=== PATIENT | male | born 1950 | race Caucasian/White ===

== ENCOUNTER 2018-06-22 10:11 | Emergency (ER) | payer OTHER ==
[2018-06-22 10:24] VITALS: BP 148/73; PULSE 102; TEMP 98; BMI 31.6
--- NOTE | 2018-06-22 10:47 | PDOC ---
History of Present Illness - General Chief Complaint: Cold Symptoms Stated Complaint: COLD SYMPTOMS Time Seen by Provider: 06/22/18 10:47 History Source: Patient Exam Limitations: No Limitations - History of Present Illness Initial Comments: 06/22/18 10:59 Came to emergency department with back for evaluation of this worsening over the past few days. Was seen by PMD on and prescribed cough syrup and azithromycin which she has taken today's dosage now. States cough persists without fever. Phlegm is whitish in color. His chest pain or palpitations Timing/Duration: reports: constant, getting worse, intermittent Severity: reports: mild, moderate Associated Symptoms: reports: cough, dizziness, fever/chills, headache, nasal congestion, nasal drainage Past History - Travel Traveled outside of the country in the last 30 days: No Close contact w/someone who was outside of country & ill: No - Past Medical History Allergies/Adverse Reactions: Allergies Allergy/AdvReac Type Severity Reaction Status Date / Time No Known Allergies Allergy Verified 06/22/18 10:18 Home Medications: Ambulatory Orders Aspirin [Baby Aspirin] 81 mg PO 10/15/13 Insulin Glargine,Hum.rec.anlog [Lantus] 100 unit SQ cartridge 10/15/13 Metformin HCl 1,000 mg PO BID #60 tablet 10/15/13 Simvastatin [Zocor] 20 mg PO tablet 10/15/13 Albuterol Sulfate Inhaler - [Ventolin HFA Inhaler -] 1 - 2 inh PO Q4H #1 inhaler 06/22/18 COPD: No Diabetes: Yes (IDDM) HTN: Yes Hypercholesterolemia: Yes - Immunization History Immunization Up to Date: Yes - Suicide/Smoking/Psychosocial Hx Smoking History: Current every day smoker Information on smoking cessation initiated: No Hx Alcohol Use: No Drug/Substance Use Hx: No Review of Systems - Review of Systems Able to Perform ROS?: Yes Is the patient limited Romansh proficient: Yes Constitutional: Yes: Symptoms Reported, See HPI, Malaise. No: Fever HEENTM: Yes: Symptoms Reported, See HPI, Nose Congestion, Dental Problems Respiratory: Yes: Symptoms reported, See HPI, Cough Cardiac (ROS): No: Symptoms Reported Musculoskeletal: Yes: Symptoms Reported Neurological: Yes: Symptoms reported, See HPI, Headache All Other Systems: Reviewed and Negative *Physical Exam - Vital Signs Last Vital Signs Temp Pulse Resp BP Pulse Ox 98.0 F 102 H 18 148/73 91 L 06/22/18 10:19 06/22/18 10:19 06/22/18 10:19 06/22/18 10:19 06/22/18 10:19 - Physical Exam General Appearance: Yes: Nourished, Appropriately Dressed, Apparent Distress, Mild Distress HEENT: positive: EOMI, Pharyngeal Erythema, Nasal Congestion, Rhinorrhea. negative: TMs Normal (congested but landmarks easily visualized) Neck: positive: Supple. negative: Tender, Lymphadenopathy (R), Lymphadenopathy (L) Respiratory/Chest: positive: Normal Breath Sounds. negative: Lungs Clear ( coarse but clear, no wheezing or retractions noted however mildly diminished) Extremity: positive: Normal Capillary Refill, Normal Inspection Integumentary: positive: Normal Color, Dry, Warm, Pale Neurologic: positive: propeller engineer II-XII NML intact, Fully Oriented, Alert, Normal Mood/ Affect, Normal Response, Motor Strength 5/5 Moderate Sedation - Procedure Monitoring Vital Signs: Procedure Monitoring Vital Signs Temperature 98.0 F 06/22/18 10:19 Pulse Rate 102 H 06/22/18 10:19 Respiratory Rate 18 06/22/18 10:19 Blood Pressure 148/73 06/22/18 10:19 O2 Sat by Pulse Oximetry (%) 91 L 06/22/18 10:19 *DC/Admit/Observation/Transfer Diagnosis at time of Disposition: Bronchitis - Discharge Dispostion Disposition: HOME Condition at time of disposition: Stable Decision to Admit order: No - Prescriptions Prescriptions: Albuterol Sulfate Inhaler - [Ventolin HFA Inhaler -] 1 - 2 inh PO Q4H #1 inhaler - Referrals Referrals: Vickie Bardales MD [Primary Care Provider] - - Patient Instructions Printed Discharge Instructions: DI for Acute Bronchitis Additional Instructions: Rest, drink lots of fluids: Teas, water, soups, Pedialyte Saltwater gargles Steamy showers/seem to face break up mucus Avoid contact with others until fevers and cough resolved Lots of handwashing and good hygiene Continue [id number]-[id number] medications for symptomatic relief Tylenol or Motrin for fever and pain Continue albuterol nebulizers every 4-6 hours for the next 2 days then as needed for continued cough Followup with private physician in one to 2 days Return to emergency department / pediatric hospital for worsened symptoms, fevers, dehydration - Post Discharge Activity
[2018-06-22] MEDS ORDERED: ALBUTEROL SO4 2.5/IPRATROPIUM 0.5 INH SOL 3 ML VIAL.NEB. NEB ONE ×2 (10:53→11:01)
== END 2018-06-22 11:52 | disposition home or self-care (01) ==
LOC: JERFT 10:11
PROC: 3E0F7GC Introduction of Other Therapeutic Substance into Respiratory Tract, Via Natural or Artificial Opening (ICD-10-PCS; principal; 2018-06-22)
DX: J40 Bronchitis, not specified as acute or chronic (principal); I10 Essential (primary) hypertension; E11.9 Type 2 diabetes mellitus without complications; Z79.4 Long term (current) use of insulin; E78.00 Pure hypercholesterolemia, unspecified
CPT/HCPCS: 71046-TC-FY; 94640; 99281-25

== ENCOUNTER 2018-11-28 06:19 | Inpatient (IN) | payer OTHER ==
--- NOTE | 2018-11-28 07:10 | PDOC ---
History of Present Illness - General Chief Complaint: Rectal Bleed Stated Complaint: GI BLEED Time Seen by Provider: 11/28/18 07:10 - History of Present Illness Initial Comments: 11/28/18 07:46 Mr. Bean is a 68 yo male w/ pmh of IDDM and HTN who presents for evaluation of 3 episodes of bright red blood in stool earlier today. Patient also reports he has felt dizzy upon standing today as well. Family reports he is very pale looking. The patient denies chest pain, shortness of breath, and headache. Denies fever, chills, nausea, vomit, diarrhea and constipation. Denies dysuria, frequency, urgency and hematuria. Past History - Past Medical History Allergies/Adverse Reactions: Allergies Allergy/AdvReac Type Severity Reaction Status Date / Time No Known Allergies Allergy Verified 11/28/18 06:53 Home Medications: Ambulatory Orders Aspirin [Baby Aspirin] 81 mg PO DAILY 10/15/13 Insulin Glargine,Hum.rec.anlog [Lantus] 100 unit SQ HS cartridge 10/15/13 Metformin HCl 1,000 mg PO BID #60 tablet 10/15/13 Simvastatin [Zocor] 20 mg PO DAILY tablet 10/15/13 COPD: No Diabetes: Yes (IDDM) HTN: Yes Hypercholesterolemia: Yes - Immunization History Immunization Up to Date: Yes - Suicide/Smoking/Psychosocial Hx Smoking History: Never smoked Hx Alcohol Use: No (social) Drug/Substance Use Hx: No Review of Systems - Review of Systems Comments:: 11/28/18 07:49 GENERAL/CONSTITUTIONAL: No fever or chills. No weakness. HEAD, EYES, EARS, NOSE AND THROAT: No change in vision. No ear pain or discharge. No sore throat. CARDIOVASCULAR: No chest pain or shortness of breath RESPIRATORY: No cough, wheezing, or hemoptysis. GASTROINTESTINAL: +Bloody diarrhea as described. No nausea, vomiting, or constipation. GENITOURINARY: No dysuria, frequency, or change in urination. MUSCULOSKELETAL: No joint or muscle swelling or pain. No neck or back pain. SKIN: No rash NEUROLOGIC: +Dizziness upon standing x1 day. No headache, loss of consciousness , or change in strength/sensation. ENDOCRINE: No increased thirst. No abnormal weight change HEMATOLOGIC/LYMPHATIC: No anemia, easy bleeding, or history of blood clots. ALLERGIC/IMMUNOLOGIC: No hives or skin allergy. *Physical Exam - Vital Signs Last Vital Signs Temp Pulse Resp BP Pulse Ox 97.4 F L 64 18 84/48 L 98 11/28/18 06:44 11/28/18 06:44 11/28/18 06:44 11/28/18 06:44 11/28/18 06:44 - Physical Exam Comments: 11/28/18 07:50 GENERAL: +Patient pale appearing. Awake, alert, and fully oriented, in no acute distress HEAD: No signs of trauma, normocephalic, atraumatic EYES: PERRLA, EOMI, sclera anicteric, conjunctiva clear ENT: Auricles normal inspection, hearing grossly normal, nares patent, oropharynx clear without exudates. Moist mucosa NECK: Normal ROM, supple, no lymphadenopathy, JVD, or masses LUNGS: No distress, speaks full sentences, clear to auscultation bilaterally HEART: Regular rate and rhythm, normal S1 and S2, no murmurs, rubs or gallops, peripheral pulses normal and equal bilaterally. ABDOMEN: Soft, nontender, normoactive bowel sounds. No guarding, no rebound. No masses EXTREMITIES: Normal inspection, Normal range of motion, no edema. No clubbing or cyanosis. NEUROLOGICAL: Cranial nerves II through XII grossly intact. Normal speech, normal gait, no focal sensorimotor deficits SKIN: Warm, Dry, normal turgor, no rashes or lesions noted. RECTAL: +Red material noted on glove following exam. No hemorrhoids or tears noted. ED Treatment Course - LABORATORY CBC & Chemistry Diagram: 11/28/18 07:22 11/28/18 07:22 Medical Decision Making - Medical Decision Making 11/28/18 07:50 Mr. Bean is a 68 yo male w/ pmh as described who presents for evaluation of symptoms concerning for hemorrhoid vs. GI bleed upper vs. lower. Patient evaluated with labs as below. While in ED, patient noted to have approx. 10s episode of non-responsiveness w/ eye deviation to the R side. Patient quickly returned to baseline and was given fluids and consented for blood transfusion as needed at that time. 11/28/18 09:21 Patient anemic as below; also concern for hemoconcentration given many elevated labs. Patient improved following NS and protonix. Patient ordered for 2 units PRBC's given symptomatic state. GI consulted. Patient admitted for further evaluation. Laboratory Results - last 24 hr 11/28/18 11/28/18 11/28/18 07:22 07:22 07:22 WBC 15.6 H RBC 3.21 L Hgb 9.5 L Hct 29.3 L MCV 91.2 MCH 29.6 MCHC 32.5 RDW 14.1 Plt Count 255 MPV 8.2 Retic Count PT with INR 12.30 INR 1.04 PTT (Actin FS) 28.3 Sodium 139 Potassium 5.0 Chloride 108 H Carbon Dioxide 24 Anion Gap 7 L BUN 14.0 Creatinine 1.2 Est GFR (CKD-EPI)AfAm 70.58 Est GFR (CKD-EPI)NonAf 60.90 Random Glucose 298 H Calcium 7.8 L Total Bilirubin 0.2 AST 10 L ALT 15 Alkaline Phosphatase 84 Creatine Kinase 224 Creatine Kinase Index 0.7 CK-MB (CK-2) 1.6 Troponin I < 0.02 Total Protein 5.2 L Albumin 2.6 L Stool Occult Blood Crossmatch 11/28/18 11/28/18 11/28/18 07:22 07:40 09:00 WBC RBC Hgb Hct MCV MCH MCHC RDW Plt Count MPV Retic Count 1.39 PT with INR INR PTT (Actin FS) Sodium Potassium Chloride Carbon Dioxide Anion Gap BUN Creatinine Est GFR (CKD-EPI)AfAm Est GFR (CKD-EPI)NonAf Random Glucose Calcium Total Bilirubin AST ALT Alkaline Phosphatase Creatine Kinase Creatine Kinase Index CK-MB (CK-2) Troponin I Total Protein Albumin Stool Occult Blood Positive Crossmatch See Detail *DC/Admit/Observation/Transfer Diagnosis at time of Disposition: GI bleed Qualifiers: GI bleed type/associated pathology: unspecified gastrointestinal hemorrhage type Qualified Code(s): K92.2 - Gastrointestinal hemorrhage, unspecified - Discharge Dispostion Decision to Admit order: Yes - Referrals Referrals: Maurice Jackson MD [Primary Care Provider] - - Patient Instructions - Post Discharge Activity
--- NOTE | 2018-11-28 07:20 | PDOC ---
Attending Attestation - Resident Resident Name: Floydmayoana [email or web address] - ED Attending Attestation I have performed the following: I have examined & evaluated the patient, The case was reviewed & discussed with the resident, I agree w/resident's findings & plan, Exceptions are as noted - HPI HPI: 11/28/18 07:30 Mr Vikas Vincent is a 68 yo M who presents to the ER with a complaint of rectal bleeding Pt has a h/o DM and HLD He was in his usual state of health until this morning (4 hours ago) when he noted BRBPR He has had 3 large bloody bowel movement Pt denies abdominal pain Pt denies fevers or chills Pt denies vomiting Pt has had noted no other bleeding - no hematuria, no hematemesis, no gingival bleeding) Last colonoscopy was 4 years ago (can not remember GI doctor, reportedly negative) Pt was dizzy earlier today currently feels better - Physicial Exam PE: 11/28/18 07:20 Hypotension noted GENERAL: The patient is in no acute distress. ENT: Ears normal, nares patent, PALE CONJUNCTIVA. Moist mucous membranes. NECK: Normal range of motion, supple LUNGS: Breath sounds equal, clear to auscultation bilaterally. No wheezes, and no crackles. HEART:Regular rate and rhythm, normal S1 and S2 without murmur, rub or gallop. ABDOMEN: Soft, NONTENDER, normoactive bowel sounds. Rectal examination: bright red blood noted in pt diaper EXTREMITIES: Normal range of motion NEUROLOGICAL: Cranial nerves II through XII grossly intact. Normal speech. No focal neurological deficits. SKIN: Warm, Dry, normal turgor, no rashes or lesions noted. 11/28/18 07:32 - Critical Care Time Total Critical Care Time: 60 Critical Care Statement: The care of this patient involved high complexity decision making to prevent further life threatening deterioration of the patient 's condition and/or to evaluate & treat vital organ system(s) failure or risk of failure. - Medical Decision Making 11/28/18 07:20 EKG-NSR rate of 64 bpm, axisa nml, intervals nml, no st elevation or depression , flattened t waves overall 11/28/18 07:32 68 yo M presenting with Lower GI Bleed most recent colonoscopy 4 years ago (records not available) DD includes but is not limited to: Hemorrhoids, AVM, Diverticulosis, Rectal Mass, brisk UGIB will do: Labs IV x 2 Type and Screen Small bolus of fluids for hypotension EKG Close cardiac monitoring Admit 11/28/18 07:44 Pt had a momentary vagovagal episode Pt BP LOW Fluids running Will order O Negative 11/28/18 08:17 CXR - nml 11/28/18 08:17 Laboratory Tests 11/28/18 07:40 Stool Occult Blood Positive 11/28/18 08:32 BP improved with IVF Will hold on Oneg and wait until pt is type and screened Laboratory Tests 11/28/18 07:22 INR 1.04 2 units PRBCs ordered Pt will be admitted to Hospitalist service Will place in the ICU given active bleeding GI consulted Clinical impression: Lower GI bleed, initial presentation
[2018-11-28] MEDS ORDERED: SODIUM CHLORIDE 250 ML IV STA (07:27)
[2018-11-28] MEDS ORDERED: PANTOPRAZOLE SODIUM 40 MG VIAL IVPUSH ONE (07:37)
[2018-11-28] MEDS ORDERED: PANTOPRAZOLE SODIUM 40 MG VIAL ONE ×2 (07:45→09:54)
[2018-11-28] MEDS ORDERED: SODIUM CHLORIDE 1,000 ML IV STA (07:50)
[2018-11-28 08:30] LABS: INR 1.04 (0.83-1.09); PROTHROMBIN TIME (PATIENT) 12.3 SEC (9.7-13.0)
[2018-11-28 08:33] LABS: HEMATOCRIT 29.3 % (35.4-49); HEMOGLOBIN 9.5 GM/dL (11.7-16.9); MCH 29.6 pg (25.7-33.7); MCHC 32.5 g/dl (32.0-35.9); MEAN CELL VOLUME 91.2 fl (80-96); MEAN PLT VOLUME 8.2 fl (7.5-11.1); PLATELET COUNT 255 K/MM3 (134-434); RBC 3.21 M/mm3 (4.00-5.60); RDW 14.1 % (11.9-15.9); WHITE BLOOD COUNT 15.6 K/mm3 (4.0-10.0)
[2018-11-28 08:34] LABS: ACTIVATED PTT 28.3 SECONDS (25.2-36.5)
[2018-11-28 08:39] LABS: ALBUMIN 2.6 g/dl (3.4-5.0); ALK PHOS 84 U/L (45-117); ANION GAP 7 MMOL/L (8-16); BILIRUBIN,TOTAL 0.2 mg/dL (0.2-1); CALCIUM 7.8 mg/dL (8.5-10.1); CHLORIDE 108 mmol/L (98-107); CO2 24 mmol/L (21-32); CREATININE 1.2 mg/dL (0.55-1.3); GLUCOSE,RANDOM 298 mg/dL (74-106); SGOT/AST 10 U/L (15-37); SGPT/ALT 15 U/L (13-61); SODIUM 139 mmol/L (136-145); TOT PROT 5.2 g/dl (6.4-8.2)
[2018-11-28] MEDS ORDERED: ACETAMINOPHEN 325 MG TABLET (FP) PO PRN (09:37)
--- NOTE | 2018-11-28 09:49 | HP ---
Admitting History and Physical - Primary Care Physician PCP: Maurice Jackson - Admission Chief Complaint: I'm bleeding History of Present Illness: Mr Vikas Vincent is a pleasant 68 year old male who comes in with 3 episodes of BRBPR this morning. He states that he was in his normal state of health yesterday and having no problems. This morning he woke and needed to have a bowel movement, he states that with the bowel movement he had a large amount of bright red blood. The stool was normal, not diarrhea and no melena. However he had three episodes of this. After the third episode he became lightheaded and passed out at home. He was found down but was aroused. After this EMS was called and he was brought in for further evaluation. Aside from this he is without complaint. He had 1 bloody bowel movement here in the ED. He denies current lightheadedness, dizziness, fevers, chills, chest pain, shortness of breath, coughing, abdominal pain, nausea, vomiting, difficulty or pain on urination, or leg pain. He has chronic swelling in his BLE secondary to PVD and has been on a diuretic for 1 month. His last colonoscopy was 4 years ago which he says is normal. This is the first time he has experienced bleeding. History Source: Patient Limitations to Obtaining History: Language Barrier - Past Medical History Cardiovascular: Yes: HTN, Hyperlipdemia, Other (PVD) Endocrine: Yes: Diabetes Mellitus - Past Surgical History Past Surgical History: Yes: Amputation (multiple toes) Additional Past Surgical History: femur repair after accident, plate removed - Smoking History Smoking history: Never smoked - Alcohol/Substance Use Hx Alcohol Use: Yes (social) History of Substance Use: reports: None - Social History Usual Living Arrangement: Yes: With Spouse ADL: Independent History of Recent Travel: No Home Medications - Allergies Allergies/Adverse Reactions: Allergies Allergy/AdvReac Type Severity Reaction Status Date / Time No Known Allergies Allergy Verified 11/28/18 06:53 - Home Medications Home Medications: Ambulatory Orders Aspirin [Baby Aspirin] 81 mg PO DAILY 10/15/13 Insulin Glargine,Hum.rec.anlog [Lantus] 100 unit SQ HS cartridge 10/15/13 Metformin HCl 1,000 mg PO BID #60 tablet 10/15/13 Simvastatin [Zocor] 20 mg PO DAILY tablet 10/15/13 Family Disease History - Family Disease History Other Family History: "everyone" has diabetes Review of Systems Findings/Remarks: Full review of systems obtained, as per HPI and otherwise negative Physical Examination Vital Signs: Vital Signs Temperature 36.3 C L 11/28/18 06:44 Pulse Rate 67 11/28/18 07:15 Respiratory Rate 17 11/28/18 07:15 Blood Pressure 95/43 L 11/28/18 09:02 O2 Sat by Pulse Oximetry (%) 97 11/28/18 07:15 Constitutional: Yes: Well Nourished, No Distress, Calm Eyes: Yes: Conjunctiva Clear, EOM Intact, PERRL HENT: Yes: Atraumatic, Normocephalic Cardiovascular: Yes: Regular Rate and Rhythm. No: Gallop, Murmur, Rub Respiratory: Yes: Regular, CTA Bilaterally. No: Rales, Rhonchi, Wheezes Gastrointestinal: Yes: Normal Bowel Sounds, Soft, Other (blood on sheet, rectum leaking BRB). No: Distention, Tenderness Extremities: Yes: Other (toes amputated on both feet) Edema: No Labs: CBC, BMP 11/28/18 07:22 11/28/18 07:22 Imaging - Results Chest X-ray: Report Reviewed, Image Reviewed Problem List - Problems (1) GI bleed Assessment/Plan: -patient's Hgb in the 9, however very symptomatic and suspect hemoconcentration -low suspicion this is upper GI bleed, most likely lower GIB -case d/w Dr Warner who will evaluate -tentative plan for colonoscopy tomorrow -ICU consulted for evaluation, suspect still bleeding and will need closer monitoring -continue aggressive hydration -2 units pRBCs ordered -may need more, will check cbc 2 hours post transfusion -even though low suspicion will start on protonix gtt until seen by GI -clear liquid diet now, npo after mn tonight -hold aspirin, no anticoagulation for DVT PPx secondary to bleeding Code(s): K92.2 - GASTROINTESTINAL HEMORRHAGE, UNSPECIFIED Qualifiers: GI bleed type/associated pathology: unspecified gastrointestinal hemorrhage type Qualified Code(s): K92.2 - Gastrointestinal hemorrhage, unspecified (2) Syncope Assessment/Plan: -secondary to GI bleed -hydration -transfusion -as above Code(s): R55 - SYNCOPE AND COLLAPSE (3) Hypotension Assessment/Plan: -secondary to GIB -hold antihypertensives -hydration and transfusion Code(s): I95.9 - HYPOTENSION, UNSPECIFIED (4) HTN (hypertension) Assessment/Plan: -on metoprolol and lisinopril at home -hold secondary to hypotension from bleeding Code(s): I10 - ESSENTIAL (PRIMARY) HYPERTENSION (5) Diabetes Assessment/Plan: -clear liquid diet -npo after mn except meds -FSBS qac and qhs -SSI -diabetic diet when able to eat Code(s): E11.9 - TYPE 2 DIABETES MELLITUS WITHOUT COMPLICATIONS Qualifiers: Diabetes mellitus type: type 2 Diabetes mellitus rat exterminator insulin use: with rat exterminator use Diabetes mellitus complication status: with circulatory complication Diabetes mellitus complication detail: with peripheral angiopathy without gangrene Qualified Code(s): E11.51 - Type 2 diabetes mellitus with diabetic peripheral angiopathy without gangrene; Z79.4 - termite control servicer (current) use of insulin (6) HLD (hyperlipidemia) Assessment/Plan: -on simvastatin at home -hold currently Code(s): E78.5 - HYPERLIPIDEMIA, UNSPECIFIED Assessment/Plan 64 minutes spent in critical care of this patient
[2018-11-28] MEDS: PANTOPRAZOLE SODIUM 80 MG in SODIUM CHLORIDE 100 ML IVPB SCH ×2 (10:07→20:18)
[2018-11-28] MEDS: SODIUM CHLORIDE 1,000 ML IV SCH (10:23)
--- NOTE | 2018-11-28 10:54 | CON.GI ---
Consult Consult Specialty:: GI Referred by:: Dr. Plasencia Reason for Consultation:: Rectal bleeding - History of Present Illness Chief Complaint: Rectal bleeding History of Present Illness: Laura Barnett Interpeter (ID # documented on endoscopy consent) and Family aided in translation. The patient is a 68 year old male BIBEMS after syncopizing at home following a blood bowel movement. He was noted to have a bloody BM when he had syncopized as well and two bloody BM's in the ED. Triage vitals revealed P: 64 BP: 84/48. Hgb was 9.5. There is no prior bloodwork for comparison. BG 06/29 was 130-140 systolic. He does not appear to take beta wally at home. In ED, He was given IV hydration with improvement in BP to 102 /50 at the time of my evaluation. Mr. Vikas Vincent denies episodes of bleeding in the past and denies associated abdominal pain with this episode. He takes an ASA 81mg daily and denies other antiplatelet agents, OTC NSAID use or anticioagulants. His family describes his alcohol consumption as heavy on weekends. He had a colonoscopy 4 years ago at [facility] that he describes as being normal. He has never had an upper endoscopy. There is no family history of colorectal cancer or other GI malignancy. - History Source History Provided By: Patient, Family Member, Medical Record - Past Medical History Cardio/Vascular: Yes: HTN, Hyperlipdemia, Other (PVD) Endocrine: Yes: Diabetes Mellitus - Past Surgical History Past Surgical History: Yes: Amputation (Left 5th toe, Right great toe amputations) Additional Surgical History: Describes LE angioplasties - Alcohol/Substance Use Hx Alcohol Use: Yes (social) History of Substance Use: reports: None - Smoking History Smoking history: Never smoked - Social History Usual Living Arrangement: With Spouse ADL: Independent Place of : Other ([place]) Came to [place]year[place] 1986 History of Recent Travel: No Home Medications - Allergies Allergies/Adverse Reactions: Allergies Allergy/AdvReac Type Severity Reaction Status Date / Time No Known Allergies Allergy Verified 11/28/18 06:53 - Home Medications Home Medications: Ambulatory Orders Aspirin [Baby Aspirin] 81 mg PO DAILY 10/15/13 Insulin Glargine,Hum.rec.anlog [Lantus] 100 unit SQ HS cartridge 10/15/13 Metformin HCl 1,000 mg PO BID #60 tablet 10/15/13 Simvastatin [Zocor] 20 mg PO DAILY tablet 10/15/13 Family Disease History - Family Disease History Family Disease History: Other: Father (Alive: healthy), Mother (Alive: DM II), Brother (2, healthy), Sister (1, healthy), Son (3, healthy), Daughter (5, healthy) Other Family History: No family history of colorectal cancer or other GI malignancy Review of Systems - Review of Systems Constitutional: reports: Chills Cardiovascular: denies: Chest Pain Respiratory: denies: SOB Gastrointestinal: reports: Rectal Bleeding. denies: Abdominal Pain, Constipation Physical Exam-GI Vital Signs: Vital Signs Temperature 97.3 F L 11/28/18 10:00 Pulse Rate 72 11/28/18 10:00 Respiratory Rate 17 11/28/18 10:00 Blood Pressure 102/50 L 11/28/18 10:00 O2 Sat by Pulse Oximetry (%) 97 11/28/18 10:00 Constitutional: No: Calm Eyes: No: Sclera Icterus Cardiovascular: Yes: Regular Rate and Rhythm. No: Murmur Respiratory: Yes: CTA Bilaterally Gastrointestinal Inspection: No: Distention, Scars ...Auscultate: Yes: Normoactive Bowel Sounds ...Palpate: Yes: Soft. No: Hepatomegaly, Splenomegaly ...Percussion: No: Tympanitic ...Rectal Exam: Yes: Other (No external lesions, no masses, dark red blood mixed with some stool) Extremities: Yes: Other (B/L tole amputations as described above) Edema: No (No LE edema) Neurological: Yes: Alert Labs: CBC, BMP 11/28/18 07:22 11/28/18 07:22 INR, PTT INR 1.04 (0.83-1.09) 11/28/18 07:22 Hepatic Panel Total Bilirubin 0.2 mg/dL (0.2-1) 11/28/18 07:22 AST 10 U/L (15-37) L 11/28/18 07:22 ALT 15 U/L (13-61) 11/28/18 07:22 Alkaline Phosphatase 84 U/L (45-117) 11/28/18 07:22 Albumin 2.6 g/dl (3.4-5.0) L 11/28/18 07:22 Problem List - Problems (1) GI bleed Assessment/Plan: Significant volume depletion With resting hypotension / syncope / anemia ( unclear if has baseline anemia) Normal BUN suggests brisk upper GI source less likely. Suspect diverticular hemorrhage precipitated by daily ASA therapy Explained to Mr. iVkas Vincent via [employer] Technician and his family that for further evaluation and to exclude alternate etiologies, upper endoscopy and colonoscopy will be undertaken once he has been properly resucitated. We discissed potential risks of the procedure like but not limited to bleeding, perforation requiring surgery to repair, infection, sedation medication effects all of which could be potentially life threatening. Discussed the possibility of variceal bleeding as well. He has agreed to the procedures. For now: NPO IV Hydration Agree with PRBC transfusion ICU monitoring. Serial CBC Protonix for now If continued hypotension in setting of active GI bleed that precludes safe bowel preparation, obtain CTA to help localize bleeding source Surgical consult Timing of procedures to be determined by clinical course Code(s): K92.2 - GASTROINTESTINAL HEMORRHAGE, UNSPECIFIED Qualifiers: GI bleed type/associated pathology: unspecified gastrointestinal hemorrhage type Qualified Code(s): K92.2 - Gastrointestinal hemorrhage, unspecified
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
[2018-11-28] MEDS ORDERED: INSULIN (NOVOLOG) ASPART 100 UNITS/ML 10ML VIAL ONE (11:51)
[2018-11-28] MEDS: INSULIN SLIDING SCALE (NOVOLOG) 1 VIAL SQ SCH ×3 (11:52→21:41)
--- NOTE | 2018-11-28 12:29 | EKG ---
Test Reason : Blood Pressure : / mmHG Vent. Rate : 064 BPM Atrial Rate : 064 BPM P-R Int : 146 ms QRS Dur : 084 ms QT Int : 422 ms P-R-T Axes : 034 002 007 degrees QTc Int : 435 ms NORMAL SINUS RHYTHM POSSIBLE ANTERIOR INFARCT , AGE UNDETERMINED ABNORMAL ECG NO PREVIOUS ECGS AVAILABLE Confirmed by ADRIANE CRUZ, PATEL ([id number]) on 11/28/2018 12:29:37 PM Referred By: Confirmed By:PATEL FORREST MD
--- NOTE | 2018-11-28 16:36 | CONSULT ---
Consult Consult Specialty:: General Surgery Reason for Consultation:: GIB - History of Present Illness Chief Complaint: blood per rectum History of Present Illness: 68yo male PMH HTN, HLD, PVD presents with with 3 episodes of BRBPR this morning. He states that he was in his normal state of health yesterday and having no problems. This morning he woke and needed to have a bowel movement, he states that with the bowel movement he had a large amount of bright red blood. The stool was normal, not diarrhea and no melena. However he had three episodes of this. After the third episode he became lightheaded and passed out at home. He was found down but was aroused. After this EMS was called and he was brought in for further evaluation. Aside from this he is without complaint. He had 1 bloody bowel movement here in the ED. we were called to assess - History Source History Provided By: Patient, Medical Record Limitations to Obtaining History: No Limitations - Past Medical History Cardio/Vascular: Yes: HTN, Hyperlipdemia, Other (PVD) Endocrine: Yes: Diabetes Mellitus - Past Surgical History Past Surgical History: Yes: Amputation (Left 5th toe, Right great toe amputations) Additional Surgical History: Describes LE angioplasties - Alcohol/Substance Use Hx Alcohol Use: Yes (social) History of Substance Use: reports: None - Smoking History Smoking history: Never smoked - Social History Usual Living Arrangement: With Spouse ADL: Independent History of Recent Travel: No Home Medications - Allergies Allergies/Adverse Reactions: Allergies Allergy/AdvReac Type Severity Reaction Status Date / Time No Known Allergies Allergy Verified 11/28/18 06:53 - Home Medications Home Medications: Ambulatory Orders Aspirin [Baby Aspirin] 81 mg PO DAILY 10/15/13 Insulin Glargine,Hum.rec.anlog [Lantus] 100 unit SQ HS cartridge 10/15/13 Metformin HCl 1,000 mg PO BID #60 tablet 10/15/13 Simvastatin [Zocor] 20 mg PO DAILY tablet 10/15/13 Family Disease History - Family Disease History Family Disease History: Other: Father (Alive: healthy), Mother (Alive: DM II), Brother (2, healthy), Sister (1, healthy), Son (3, healthy), Daughter (5, healthy) Other Family History: No family history of colorectal cancer or other GI malignancy Review of Systems - Review of Systems Constitutional: denies: Chills, Fever, Unintentional Wgt. Loss Eyes: denies: Blurred Vision, Double Vision, Recent Change in Vision HENT: denies: Ear Discharge, Hearing Loss, Throat Pain Neck: denies: Pain on Movement, Tenderness Cardiovascular: denies: Chest Pain, Palpitations Respiratory: denies: Cough, SOB Gastrointestinal: denies: Abdominal Pain, Bloating, Constipation, Diarrhea Genitourinary: denies: Discharge, Dysuria, Flank Pain Breasts: reports: No Symptoms Reported. denies: Pain Musculoskeletal: denies: Joint Swelling, Muscle Pain, Muscle Cramps Integumentary: denies: Eczema, Erythema, Rash Neurological: denies: Seizure, Syncope Endocrine: denies: Unexplained Weight Gain, Unexplained Weight Loss Hematology/Lymphatic: denies: Easily Bruised, Excessive Bleeding Psychiatric: denies: Anxiety, Depression Physical Exam Vital Signs: Vital Signs Temperature 98.1 F 11/28/18 14:41 Pulse Rate 81 11/28/18 14:41 Respiratory Rate 18 11/28/18 14:41 Blood Pressure 108/55 L 11/28/18 14:41 O2 Sat by Pulse Oximetry (%) 97 11/28/18 14:26 Constitutional: Yes: Well Nourished, No Distress, Calm Eyes: Yes: Conjunctiva Clear, EOM Intact HENT: Yes: Atraumatic, Normocephalic Neck: Yes: Supple, Trachea Midline Cardiovascular: Yes: Regular Rate and Rhythm, S1, S2 Respiratory: Yes: Regular, CTA Bilaterally Gastrointestinal: Yes: Normal Bowel Sounds, Soft, Abdomen, Obese. No: Tenderness, Tenderness, Epigastrium, Tenderness, Rebound ...Rectal Exam: Yes: Hemorrhoids/External, Hemorrhoids/Internal, Sphincter Tone Normal. No: Mass Renal/: No: CVA Tenderness - Left, CVA Tenderness - Right Breast(s): No: Dimpling, Nipple Inversion Musculoskeletal: No: Muscle Pain, Muscle Weakness Extremities: No: Cool, Internal Rotation Edema: No Peripheral Pulses WNL: Yes Integumentary: No: Jaundice, Rash, Tattoos Neurological: Yes: Alert, Oriented Psychiatric: Yes: Alert, Oriented Labs: CBC, BMP 11/28/18 07:22 11/28/18 07:22 Problem List - Problems (1) GI bleed Assessment/Plan: 68 yo male with MMP presented with GIB not yet localized suspected distal source. Agree with monitored setting NPO and IVF hydration trend labs Transfuse as needed consider NGT lavage GI for colonoscopy Will follow Thank you for the opportunity to participate in the care of this patient. 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
[2018-11-28] MEDS ORDERED: BISACODYL 5 MG TABLET.DR (FP) PO ONE ×2 (19:00→20:15)
[2018-11-28] MEDS ORDERED: PEG 3350/NA SULF BICARB CL/KCL 4000 ML SOLN.RECON PO ONE (20:00)
[2018-11-28] MEDS ORDERED: PT OWN MED DRAWER 7, Y5N ONE (20:09)
[2018-11-28 20:10] LABS: HEMATOCRIT 29.3 % (35.4-49); HEMOGLOBIN 9.8 GM/dL (11.7-16.9); MCH 29.8 pg (25.7-33.7); MCHC 33.3 g/dl (32.0-35.9); MEAN CELL VOLUME 89.4 fl (80-96); MEAN PLT VOLUME 8.2 fl (7.5-11.1); PLATELET COUNT 232 K/MM3 (134-434); RBC 3.27 M/mm3 (4.00-5.60); RDW 13.9 % (11.9-15.9)
[2018-11-28] MEDS: MUPIROCIN 2% TOPICAL OINTMENT FOR DECOLONIZATION NS SCH (22:05)
[2018-11-28] MEDS: CHLORHEXIDINE GLUCONATE 4% CLEANSER FOR DECOLONIZATION TP SCH (22:06)
[2018-11-29 00:10] LABS: HEMATOCRIT 28.6 % (35.4-49); HEMOGLOBIN 9.5 GM/dL (11.7-16.9); MCH 29.8 pg (25.7-33.7); MCHC 33.2 g/dl (32.0-35.9); MEAN CELL VOLUME 89.7 fl (80-96); MEAN PLT VOLUME 7.9 fl (7.5-11.1); PLATELET COUNT 224 K/MM3 (134-434); RBC 3.19 M/mm3 (4.00-5.60); RDW 13.5 % (11.9-15.9); WHITE BLOOD COUNT 9.1 K/mm3 (4.0-10.0)
[2018-11-29] MEDS ORDERED: INSULIN (NOVOLOG) ASPART 100 UNITS/ML 10ML VIAL ONE ×2 (03:07→04:49)
[2018-11-29] MEDS ORDERED: PT OWN MED DRAWER 7, Y5N ONE ×2 (04:50→12:43)
[2018-11-29] MEDS: INSULIN SLIDING SCALE (NOVOLOG) 1 VIAL SQ SCH ×4 (06:02→22:12)
[2018-11-29] MEDS: PANTOPRAZOLE SODIUM 80 MG in SODIUM CHLORIDE 100 ML IVPB SCH ×2 (06:17→15:30)
[2018-11-29 06:28] LABS: BASO % 0.3 % (0-2.0); EOS % 0.8 % (0-4.5); HEMATOCRIT 27.2 % (35.4-49); HEMOGLOBIN 9.3 GM/dL (11.7-16.9); LYMPH % 30.5 % (8-40); MCH 30.3 pg (25.7-33.7); MCHC 34.2 g/dl (32.0-35.9); MEAN CELL VOLUME 88.4 fl (80-96); MEAN PLT VOLUME 7.8 fl (7.5-11.1); MONO % 9.7 % (3.8-10.2); NEUT % 58.7 % (42.8-82.8); PLATELET COUNT 219 K/MM3 (134-434); RBC 3.07 M/mm3 (4.00-5.60)
[2018-11-29 06:51] LABS: BLOOD UREA NITROGEN 13.5 mg/dL (7-18); CALCIUM 7.5 mg/dL (8.5-10.1); CREATININE 0.9 mg/dL (0.55-1.3); PHOSPHOROUS 2.6 mg/dL (2.5-4.9); POTASSIUM 4.1 mmol/L (3.5-5.1)
--- NOTE | 2018-11-29 07:31 | PN ---
Physical Exam: SUBJECTIVE: Patient seen and examined at bedside this morning. Overnight patient noted to have two bowel movements with bright red blood. He denies abdominal pain, nausea, vomiting. Noted that patient drank approx. one-third of his bowel prep. Patient denies subjective fevers, chills, shortness of breath, chest pain, palpitations. OBJECTIVE: Vital Signs Period Temp Pulse Resp BP Sys/Gallardo Pulse Ox Last 24 Hr 97.3 F-98.2 F 18-92 17-25 95-125/40-65 97-98 GENERAL: The patient is awake, alert, and fully oriented, in no acute distress. HEAD: Normocephalic, atraumatic. EYES: PERRL, extraocular movements intact, sclera anicteric, conjunctiva clear. ENT: Oropharynx clear, without erythema or exudates. Moist mucous membranes. NECK: Supple without lymphadenopathy. LUNGS: Breath sounds equal, clear to auscultation bilaterally. No wheezes, no crackles. No accessory muscle use. HEART: Regular rate and rhythm, S1, S2 without murmur, rub or gallop. ABDOMEN: Soft, distended, nontender to light and deep palpation x4 quadrants, no rebound tenderness, no guarding. Normoactive bowel sounds x4 quadrants. no hepatosplenomegaly palpated or percussed. RECTAL: Good anal sphincter tone. No external or internal hemorrhoids appreciated. No stool palpated within rectal vault. Light henderson-brown streak of stool upon gloved finger. EXTREMITIES: 2+ radial, 1+ dorsalis pedis pulses bilaterally. Warm, well- perfused. No lower extremity edema bilaterally. 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 NEUROLOGICAL: Cranial nerves II through XII grossly intact. Normal speech. No gross focal deficits. PSYCH: Normal mood, normal affect upon my encounter. SKIN: Warm, dry. Laboratory Results - last 24 hr 11/28/18 11/28/18 11/28/18 07:22 07:22 07:22 WBC 15.6 H RBC 3.21 L Hgb 9.5 L Hct 29.3 L MCV 91.2 MCH 29.6 MCHC 32.5 RDW 14.1 Plt Count 255 MPV 8.2 Absolute Neuts (auto) Neutrophils % Lymphocytes % Monocytes % Eosinophils % Basophils % Nucleated RBC % Retic Count PT with INR 12.30 INR 1.04 PTT (Actin FS) 28.3 Sodium 139 Potassium 5.0 Chloride 108 H Carbon Dioxide 24 Anion Gap 7 L BUN 14.0 Creatinine 1.2 Est GFR (CKD-EPI)AfAm 70.58 Est GFR (CKD-EPI)NonAf 60.90 POC Glucometer Random Glucose 298 H Calcium 7.8 L Phosphorus Magnesium Total Bilirubin 0.2 AST 10 L ALT 15 Alkaline Phosphatase 84 Creatine Kinase 224 Creatine Kinase Index 0.7 CK-MB (CK-2) 1.6 Troponin I < 0.02 Total Protein 5.2 L Albumin 2.6 L Stool Occult Blood Blood Type Antibody Screen Crossmatch 11/28/18 11/28/18 11/28/18 07:22 07:22 07:40 WBC RBC Hgb Hct MCV MCH MCHC RDW Plt Count MPV Absolute Neuts (auto) Neutrophils % Lymphocytes % Monocytes % Eosinophils % Basophils % Nucleated RBC % Retic Count 1.39 PT with INR INR PTT (Actin FS) Sodium Potassium Chloride Carbon Dioxide Anion Gap BUN Creatinine Est GFR (CKD-EPI)AfAm Est GFR (CKD-EPI)NonAf POC Glucometer Random Glucose Calcium Phosphorus Magnesium Total Bilirubin AST ALT Alkaline Phosphatase Creatine Kinase Creatine Kinase Index CK-MB (CK-2) Troponin I Total Protein Albumin Stool Occult Blood Positive Blood Type O POSITIVE Antibody Screen Negative Crossmatch 11/28/18 11/28/18 11/28/18 09:00 11:49 17:32 WBC RBC Hgb Hct MCV MCH MCHC RDW Plt Count MPV Absolute Neuts (auto) Neutrophils % Lymphocytes % Monocytes % Eosinophils % Basophils % Nucleated RBC % Retic Count PT with INR INR PTT (Actin FS) Sodium Potassium Chloride Carbon Dioxide Anion Gap BUN Creatinine Est GFR (CKD-EPI)AfAm Est GFR (CKD-EPI)NonAf POC Glucometer 246 139 Random Glucose Calcium Phosphorus Magnesium Total Bilirubin AST ALT Alkaline Phosphatase Creatine Kinase Creatine Kinase Index CK-MB (CK-2) Troponin I Total Protein Albumin Stool Occult Blood Blood Type O POSITIVE Antibody Screen Negative Crossmatch See Detail 11/28/18 11/28/18 11/29/18 19:20 21:30 00:01 WBC 11.0 H 9.1 RBC 3.27 L 3.19 L Hgb 9.8 L 9.5 L Hct 29.3 L 28.6 L MCV 89.4 89.7 MCH 29.8 29.8 MCHC 33.3 33.2 RDW 13.9 13.5 Plt Count 232 224 MPV 8.2 7.9 Absolute Neuts (auto) Neutrophils % Lymphocytes % Monocytes % Eosinophils % Basophils % Nucleated RBC % Retic Count PT with INR INR PTT (Actin FS) Sodium Potassium Chloride Carbon Dioxide Anion Gap BUN Creatinine Est GFR (CKD-EPI)AfAm Est GFR (CKD-EPI)NonAf POC Glucometer 173 Random Glucose Calcium Phosphorus Magnesium Total Bilirubin AST ALT Alkaline Phosphatase Creatine Kinase Creatine Kinase Index CK-MB (CK-2) Troponin I Total Protein Albumin Stool Occult Blood Blood Type Antibody Screen Crossmatch 11/29/18 11/29/18 11/29/18 05:55 05:55 06:00 WBC 8.0 RBC 3.07 L Hgb 9.3 L Hct 27.2 L MCV 88.4 MCH 30.3 MCHC 34.2 RDW 14.0 Plt Count 219 MPV 7.8 Absolute Neuts (auto) 4.7 Neutrophils % 58.7 Lymphocytes % 30.5 Monocytes % 9.7 Eosinophils % 0.8 Basophils % 0.3 Nucleated RBC % 0 Retic Count PT with INR INR PTT (Actin FS) Sodium 140 Potassium 4.1 Chloride 111 H Carbon Dioxide 22 Anion Gap 7 L BUN 13.5 Creatinine 0.9 Est GFR (CKD-EPI)AfAm 99.94 Est GFR (CKD-EPI)NonAf 86.23 POC Glucometer 139 Random Glucose 145 H Calcium 7.5 L Phosphorus 2.6 Magnesium 2.0 Total Bilirubin AST ALT Alkaline Phosphatase Creatine Kinase Creatine Kinase Index CK-MB (CK-2) Troponin I Total Protein Albumin Stool Occult Blood Blood Type Antibody Screen Crossmatch Active Medications Generic Name Dose Route Start Last Admin Trade Name Rafatq PRN Reason Stop Dose Admin Acetaminophen 650 mg 11/28/18 09:37 Tylenol - PO Q4H PRN FEVER Chlorhexidine Gluconate 1 applic 11/28/18 22:00 11/28/18 22:06 Hibiclens For Decolonization - TP 1 applic HS TAVO Administration Pantoprazole Sodium 80 mg/ 100 mls @ 10 mls/hr 11/28/18 09:30 11/29/18 06:17 Sodium Chloride IVPB 10 mls/hr Q10H TAVO Administration 8 MG/HR Sodium Chloride 1,000 mls @ 125 mls/hr 11/28/18 10:30 11/28/18 10:23 Normal Saline - IV 125 mls/hr ASDIR TAVO Administration Insulin Aspart 1 vial 11/28/18 11:00 11/29/18 06:02 Novolog Vial Sliding Scale - SQ Not Given [facility] Protocol Mupirocin 1 applic 11/28/18 22:00 11/28/18 22:05 Bactroban Ointment (For Decolonization) - NS 12/03/18 21:59 1 applic BID TAVO Administration ASSESSMENT/PLAN: Patient is a 68 year old male with history of hypertension, hyperlipidemia, insulin dependent diabetes mellitus type II, peripheral vascular disease, presents with complaint of bright red blood per rectum. Admitted to ICU for tenuous blood pressures. Neurological Syncopal episode -Patient is currently awake, alert, communicative, oriented. -Syncopal episode likely secondary to vasovagal syncope. -CT head negative for acute intracranial pathology -Fall precautions Pulmonary -Patient is currently saturating well on room air -Maintain oxygen saturation greater than 90% Cardiac History of hypertension History of hyperlipidemia -Holding home antihypertensives given tenuous blood pressure -Holding home Aspirin due to bleeding -Cardiac Monitoring Gastrointenstinal -Lower vs upper GI bleed. Likely brisk lower GI bleed as patient does not appear to have responded appropriately to 2 units PRBCs. -Rectal exam reveals streak of henderson-brown stool without carl blood this morning. -Protonix drip -Patient is for colonscopy today -GI consult (Dr. Coe) appreciated. Endocrine History of Diabetes Mellitus -Insulin sliding scale ACHS -Fingerstick blood glucose monitoring [facility] Hematologic Acute blood loss anemia secondary to GI bleeding -Currently Hb/ Hct 9.3/ 27.2 s/p two units PRBC transfusion (baseline 12.7/ 38.0 in July 2018) -Patient does not appear to have responded appropriately to PRBC transfusion. -Monitor serial Hb/ Hct. Normal transfusion thresholds. FEN -IV normal saline at normal saline 125mL/ hour -Within normal limits. Follow CMP, replete as necessary -NPO in anticipation of colonscopy today. Prophylaxis -Withholding chemical anticoagulation due to active GI bleeding -Patient is on Protonix drip Disposition: We will continue to follow the patient. Thank you for this consultative opportunity. Visit type - Emergency Visit Emergency Visit: Yes ED Registration Date: 11/28/18 Care time: The patient presented to the Emergency Department on the above date and was hospitalized for further evaluation of their emergent condition. - New Patient This patient is new to me today: No - Critical Care Critical Care patient: Yes Total Critical Care Time (in minutes): 35 Critical Care Statement: The care of this patient involved high complexity decision making to prevent further life threatening deterioration of the patient 's condition and/or to evaluate & treat vital organ system(s) failure or risk of failure. - Discharge Referral Referred to [facility] Med P.C.: No
[2018-11-29] MEDS: SODIUM CHLORIDE 1,000 ML IV SCH ×2 (09:30→16:59)
--- NOTE | 2018-11-29 09:36 | PN ---
Progress Note, Physician Chief Complaint: Mr Vikas Vincent is without complaint today. No cp, sob, n/v. No further hematochezia currently. - Current Medication List Current Medications: Active Medications Acetaminophen (Tylenol -) 650 mg PO Q4H PRN PRN Reason: FEVER Chlorhexidine Gluconate (Hibiclens For Decolonization -) 1 applic TP HS TAVO Last Admin: 11/28/18 22:06 Dose: 1 applic Pantoprazole Sodium 80 mg/ (Sodium Chloride) 100 mls @ 10 mls/hr IVPB Q10H TAVO Last Admin: 11/29/18 06:17 Dose: 10 mls/hr Sodium Chloride (Normal Saline -) 1,000 mls @ 125 mls/hr IV ASDIR TAVO Last Admin: 11/28/18 10:23 Dose: 125 mls/hr Insulin Aspart (Novolog Vial Sliding Scale -) 1 vial SQ ACHS [facility]; Protocol Last Admin: 11/29/18 06:02 Dose: Not Given Mupirocin (Bactroban Ointment (For Decolonization) -) 1 applic NS BID TAVO Stop: 12/03/18 21:59 Last Admin: 11/28/18 22:05 Dose: 1 applic - Objective Vital Signs: Vital Signs Temperature 36.8 C 11/29/18 08:00 Pulse Rate 78 11/29/18 08:00 Respiratory Rate 16 11/29/18 08:00 Blood Pressure 134/72 11/29/18 08:00 O2 Sat by Pulse Oximetry (%) 98 11/28/18 21:00 Constitutional: Yes: Well Nourished, No Distress, Calm Cardiovascular: Yes: Regular Rate and Rhythm. No: Gallop, Murmur, Rub Respiratory: Yes: Regular, CTA Bilaterally. No: Rales, Rhonchi, Wheezes Gastrointestinal: Yes: Normal Bowel Sounds, Soft. No: Distention, Tenderness Extremities: Yes: WNL Edema: No Labs: CBC, BMP 11/29/18 05:55 11/29/18 05:55 INR, PTT INR 1.04 (0.83-1.09) 11/28/18 07:22 Problem List - Problems (1) GI bleed Code(s): K92.2 - GASTROINTESTINAL HEMORRHAGE, UNSPECIFIED Qualifiers: GI bleed type/associated pathology: unspecified gastrointestinal hemorrhage type Qualified Code(s): K92.2 - Gastrointestinal hemorrhage, unspecified (2) Syncope Code(s): R55 - SYNCOPE AND COLLAPSE (3) Hypotension Code(s): I95.9 - HYPOTENSION, UNSPECIFIED (4) HTN (hypertension) Code(s): I10 - ESSENTIAL (PRIMARY) HYPERTENSION (5) Diabetes Code(s): E11.9 - TYPE 2 DIABETES MELLITUS WITHOUT COMPLICATIONS Qualifiers: Diabetes mellitus type: type 2 Diabetes mellitus fdc insulin use: with fdc use Diabetes mellitus complication status: with circulatory complication Diabetes mellitus complication detail: with peripheral angiopathy without gangrene Qualified Code(s): E11.51 - Type 2 diabetes mellitus with diabetic peripheral angiopathy without gangrene; Z79.4 - intermediate accountant (current) use of insulin (6) HLD (hyperlipidemia) Code(s): E78.5 - HYPERLIPIDEMIA, UNSPECIFIED Assessment/Plan (1) GI bleed Assessment/Plan: -appears to have stopped currently -tolerated 2 units without difficulty -planning for colonoscopy -appreciate GI and surgery assistance -if remains stable, can transfer to telemetry today Code(s): K92.2 - GASTROINTESTINAL HEMORRHAGE, UNSPECIFIED Qualifiers: GI bleed type/associated pathology: unspecified gastrointestinal hemorrhage type Qualified Code(s): K92.2 - Gastrointestinal hemorrhage, unspecified (2) Syncope Assessment/Plan: -blood pressure improved -on bed rest, PT consult now stable Code(s): R55 - SYNCOPE AND COLLAPSE (3) Hypotension Assessment/Plan: -resolved Code(s): I95.9 - HYPOTENSION, UNSPECIFIED (4) HTN (hypertension) Assessment/Plan: -on metoprolol and lisinopril at home -continue to hold at this time but suspect can restart soon Code(s): I10 - ESSENTIAL (PRIMARY) HYPERTENSION (5) Diabetes Assessment/Plan: -currently npo, place on diabetic diet when able to eat -FSBS qac and qhs -SSI Code(s): E11.9 - TYPE 2 DIABETES MELLITUS WITHOUT COMPLICATIONS Qualifiers: Diabetes mellitus type: type 2 Diabetes mellitus fdc insulin use: with fdc use Diabetes mellitus complication status: with circulatory complication Diabetes mellitus complication detail: with peripheral angiopathy without gangrene Qualified Code(s): E11.51 - Type 2 diabetes mellitus with diabetic peripheral angiopathy without gangrene; Z79.4 - intermediate accountant (current) use of insulin (6) HLD (hyperlipidemia) Assessment/Plan: -on simvastatin at home -hold currently Code(s): E78.5 - HYPERLIPIDEMIA, UNSPECIFIED
[2018-11-29] MEDS: MUPIROCIN 2% TOPICAL OINTMENT FOR DECOLONIZATION NS SCH ×2 (10:16→22:30)
--- NOTE | 2018-11-29 10:52 | PN ---
Teaching Attending Note Name of Resident: Tanmay Henderson ATTENDING PHYSICIAN STATEMENT I saw and evaluated the patient. I reviewed the resident's note and discussed the case with the resident. I agree with the resident's findings and plan as documented. SUBJECTIVE: Patient seen and examined in the ICU. Awake and alert. Required 2 units in total of pRBCs. No CP or SOB. Noted additional BRBPR this AM x 2 episodes. Intake & Output 11/26/18 11/27/18 11/28/18 11/29/18 23:59 23:59 23:59 23:59 Intake Total 2950 1620 Output Total 200 500 Balance 2750 1120 Weight 194 lb 200 lb 2.876 oz Last Vital Signs Temp Pulse Resp BP Pulse Ox 98.0 F 76 17 124/64 93 L 11/29/18 10:00 11/29/18 10:00 11/29/18 10:00 11/29/18 10:00 11/29/18 08:00 Active Medications Acetaminophen (Tylenol -) 650 mg PO Q4H PRN PRN Reason: FEVER Chlorhexidine Gluconate (Hibiclens For Decolonization -) 1 applic TP HS [facility] Last Admin: 11/28/18 22:06 Dose: 1 applic Pantoprazole Sodium 80 mg/ (Sodium Chloride) 100 mls @ 10 mls/hr IVPB Q10H [facility] Last Admin: 11/29/18 06:17 Dose: 10 mls/hr Sodium Chloride (Normal Saline -) 1,000 mls @ 125 mls/hr IV ASDIR [facility] Last Admin: 11/29/18 09:30 Dose: 125 mls/hr Insulin Aspart (Novolog Vial Sliding Scale -) 1 vial SQ ACHS [facility]; Protocol Last Admin: 11/29/18 06:02 Dose: Not Given Mupirocin (Bactroban Ointment (For Decolonization) -) 1 applic NS BID TAVO Stop: 12/03/18 21:59 Last Admin: 11/29/18 10:16 Dose: 1 applic GENERAL: The patient is awake, alert, and oriented, NAD HEAD: Normocephalic, atraumatic. EYES: PERRL, sclera anicteric, conjunctiva clear. ENT: Oropharynx clear, without erythema or exudates. Moist mucous membranes. NECK: Supple without lymphadenopathy. LUNGS: Breath sounds equal, clear to auscultation bilaterally. No wheezes, no crackles. No accessory muscle use. HEART: Regular rate and rhythm, S1, S2 without murmur, rub or gallop. ABDOMEN: Soft, NT, ND, (+) BS, no rebound tenderness, no guarding. EXTREMITIES: 2+ radial, 1+ dorsalis pedis pulses bilaterally. Warm, well- perfused. No lower extremity edema bilaterally. 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 NEUROLOGICAL: Non-focal PSYCH: Normal mood, normal affect SKIN: Warm, dry. Laboratory Results - last 24 hr 11/28/18 11/28/18 11/28/18 07:22 07:22 07:22 WBC 15.6 H RBC 3.21 L Hgb 9.5 L Hct 29.3 L MCV 91.2 MCH 29.6 MCHC 32.5 RDW 14.1 Plt Count 255 MPV 8.2 Absolute Neuts (auto) Neutrophils % Lymphocytes % Monocytes % Eosinophils % Basophils % Nucleated RBC % Retic Count PT with INR 12.30 INR 1.04 PTT (Actin FS) 28.3 Sodium 139 Potassium 5.0 Chloride 108 H Carbon Dioxide 24 Anion Gap 7 L BUN 14.0 Creatinine 1.2 Est GFR (CKD-EPI)AfAm 70.58 Est GFR (CKD-EPI)NonAf 60.90 POC Glucometer Random Glucose 298 H Calcium 7.8 L Phosphorus Magnesium Total Bilirubin 0.2 AST 10 L ALT 15 Alkaline Phosphatase 84 Creatine Kinase 224 Creatine Kinase Index 0.7 CK-MB (CK-2) 1.6 Troponin I < 0.02 Total Protein 5.2 L Albumin 2.6 L Stool Occult Blood Blood Type Antibody Screen Crossmatch 11/28/18 11/28/18 11/28/18 07:22 07:22 07:40 WBC RBC Hgb Hct MCV MCH MCHC RDW Plt Count MPV Absolute Neuts (auto) Neutrophils % Lymphocytes % Monocytes % Eosinophils % Basophils % Nucleated RBC % Retic Count 1.39 PT with INR INR PTT (Actin FS) Sodium Potassium Chloride Carbon Dioxide Anion Gap BUN Creatinine Est GFR (CKD-EPI)AfAm Est GFR (CKD-EPI)NonAf POC Glucometer Random Glucose Calcium Phosphorus Magnesium Total Bilirubin AST ALT Alkaline Phosphatase Creatine Kinase Creatine Kinase Index CK-MB (CK-2) Troponin I Total Protein Albumin Stool Occult Blood Positive Blood Type O POSITIVE Antibody Screen Negative Crossmatch 11/28/18 11/28/18 11/28/18 09:00 11:49 17:32 WBC RBC Hgb Hct MCV MCH MCHC RDW Plt Count MPV Absolute Neuts (auto) Neutrophils % Lymphocytes % Monocytes % Eosinophils % Basophils % Nucleated RBC % Retic Count PT with INR INR PTT (Actin FS) Sodium Potassium Chloride Carbon Dioxide Anion Gap BUN Creatinine Est GFR (CKD-EPI)AfAm Est GFR (CKD-EPI)NonAf POC Glucometer 246 139 Random Glucose Calcium Phosphorus Magnesium Total Bilirubin AST ALT Alkaline Phosphatase Creatine Kinase Creatine Kinase Index CK-MB (CK-2) Troponin I Total Protein Albumin Stool Occult Blood Blood Type O POSITIVE Antibody Screen Negative Crossmatch See Detail 11/28/18 11/28/18 11/29/18 19:20 21:30 00:01 WBC 11.0 H 9.1 RBC 3.27 L 3.19 L Hgb 9.8 L 9.5 L Hct 29.3 L 28.6 L MCV 89.4 89.7 MCH 29.8 29.8 MCHC 33.3 33.2 RDW 13.9 13.5 Plt Count 232 224 MPV 8.2 7.9 Absolute Neuts (auto) Neutrophils % Lymphocytes % Monocytes % Eosinophils % Basophils % Nucleated RBC % Retic Count PT with INR INR PTT (Actin FS) Sodium Potassium Chloride Carbon Dioxide Anion Gap BUN Creatinine Est GFR (CKD-EPI)AfAm Est GFR (CKD-EPI)NonAf POC Glucometer 173 Random Glucose Calcium Phosphorus Magnesium Total Bilirubin AST ALT Alkaline Phosphatase Creatine Kinase Creatine Kinase Index CK-MB (CK-2) Troponin I Total Protein Albumin Stool Occult Blood Blood Type Antibody Screen Crossmatch 11/29/18 11/29/18 11/29/18 05:55 05:55 06:00 WBC 8.0 RBC 3.07 L Hgb 9.3 L Hct 27.2 L MCV 88.4 MCH 30.3 MCHC 34.2 RDW 14.0 Plt Count 219 MPV 7.8 Absolute Neuts (auto) 4.7 Neutrophils % 58.7 Lymphocytes % 30.5 Monocytes % 9.7 Eosinophils % 0.8 Basophils % 0.3 Nucleated RBC % 0 Retic Count PT with INR INR PTT (Actin FS) Sodium 140 Potassium 4.1 Chloride 111 H Carbon Dioxide 22 Anion Gap 7 L BUN 13.5 Creatinine 0.9 Est GFR (CKD-EPI)AfAm 99.94 Est GFR (CKD-EPI)NonAf 86.23 POC Glucometer 139 Random Glucose 145 H Calcium 7.5 L Phosphorus 2.6 Magnesium 2.0 Total Bilirubin AST ALT Alkaline Phosphatase Creatine Kinase Creatine Kinase Index CK-MB (CK-2) Troponin I Total Protein Albumin Stool Occult Blood Blood Type Antibody Screen Crossmatch ASSESSMENT/PLAN: Symptomatic Acute GI Bleed: suspect lower source Painless GI bleeding S/P Syncope Hypertension Hyperlipidemia Insulin dependent diabetes mellitus Peripheral vascular disease For Endoscopic evaluation Normal transfusion thresholds O2 as needed Mechanical VTE prophylaxis Hold ASA Hold anti-hypertensive medications ICU monitoring for active bleed and tenuous status Dr Zelaya Critical care time spent in reviewing chart, evaluating patient and formulating plan - 36 minutes.
[2018-11-29] MEDS ORDERED: EPINEPHrine 1:10,000 (P-F SYR) 1 MG/10 ML DISP.SYRIN SQ ONE (14:50)
--- NOTE | 2018-11-29 15:46 | PN ---
Progress Note (short form) - Note Progress Note: EGD/COlon complete. Reports placed in the procedural section of the physical chart and will be scanned into [employer] Problem List - Problems (1) GI bleed Code(s): K92.2 - GASTROINTESTINAL HEMORRHAGE, UNSPECIFIED Qualifiers: GI bleed type/associated pathology: unspecified gastrointestinal hemorrhage type Qualified Code(s): K92.2 - Gastrointestinal hemorrhage, unspecified
[2018-11-29] MEDS ORDERED: EPINEPHrine 1:10,000 (P-F SYR) 1 MG/10 ML DISP.SYRIN ONE (20:13)
--- NOTE | 2018-11-29 22:06 | PN ---
Progress Note (short form) - Note Progress Note: Update #3 CTA abdomen/ pelvis reveals no source of acute bleeding. 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 Patient passed dark red blood clots in diaper. BP 86/45 (MAP 57) HR 94. Peripheral Dopamine initiated and immediately discontinued due to tachycardia to 150s, which resolved after discontinuation. Patient receiving second unit PRBCs. Patient placed in Trendelenberg position,with increased rate of PRBC; maintaining MAP at [address] Damian. Update #2 Patient noted to have second episode of bright red blood per rectum, with blood clots Bolus additional liter normal saline. Patient currently receiving first unit PRBC transfusion. Second unit ordered from blood bank. Update #1 Patient noted to have episode of bright red blood per rectum in bathroom. Patient diaphoretic, endorsed feeling lightheaded; likely vasovagal etiology. BP 90s/ 50s. HR 90s. Improved briefly to 111/58 HR 83 with 1L bolus normal saline, however blood pressure remains tenuous. Case discussed with Dr. Damian. Will transfuse 1 unit PRBC as patient is symptomatic, hypotensive. Likely lower GI bleed as BUN is 13.5 (14 at admission) Patient may need second look colonoscopy. Will consider CTA abdomen/ pelvis if patient has further bleeding
[2018-11-29] MEDS ORDERED: SODIUM CHLORIDE 1,000 ML IV STA (22:10)
[2018-11-29] MEDS: PANTOPRAZOLE 20 MG TABLET (FP) PO SCH (22:12)
[2018-11-29 22:19] LABS: HEMATOCRIT 26.4 % (35.4-49); HEMOGLOBIN 8.7 GM/dL (11.7-16.9); MCH 30.4 pg (25.7-33.7); MCHC 33.1 g/dl (32.0-35.9); MEAN CELL VOLUME 91.7 fl (80-96); MEAN PLT VOLUME 10.2 fl (7.5-11.1); PLATELET COUNT 101 K/MM3 (134-434); RBC 2.88 M/mm3 (4.00-5.60); RDW 13.9 % (11.9-15.9); WHITE BLOOD COUNT 10.1 K/mm3 (4.0-10.0)
[2018-11-29] MEDS: CHLORHEXIDINE GLUCONATE 4% CLEANSER FOR DECOLONIZATION TP SCH (22:30)
[2018-11-30] MEDS ORDERED: SODIUM CHLORIDE 1,000 ML IV STA (01:09)
[2018-11-30] MEDS ORDERED: PANTOPRAZOLE SODIUM 40 MG VIAL IVPUSH ONE (02:56)
[2018-11-30] MEDS ORDERED: DOPAMINE HCL 400,000 MCG in SODIUM CHLORIDE 240 ML IV SCH ×2 (03:45→18:38)
[2018-11-30] MEDS ORDERED: DOPAMINE 400 MG/D5W - 400,000 MCG/250 ML INFUS.BAG IVPB ONE (03:45)
[2018-11-30] MEDS ORDERED: ONDANSETRON 4 MG/2 ML VIAL IVPUSH ONE (04:02)
[2018-11-30] MEDS ORDERED: ONDANSETRON 4 MG/2 ML VIAL ONE (04:03)
[2018-11-30] MEDS: INSULIN SLIDING SCALE (NOVOLOG) 1 VIAL SQ SCH ×3 (06:32→18:22)
--- NOTE | 2018-11-30 07:19 | PN ---
Progress Note, Physician Chief Complaint: gib History of Present Illness: 68yo male PMH HTN, HLD, PVD presents with with 3 episodes of BRBPR this morning. He states that he was in his normal state of health yesterday and having no problems. Overnight there was a precipitous drop in H&H despite transfusion of RBC, he also had some hemodynamic instability. We were recalled to assess. - Current Medication List Current Medications: Active Medications Acetaminophen (Tylenol -) 650 mg PO Q4H PRN PRN Reason: FEVER Chlorhexidine Gluconate (Hibiclens For Decolonization -) 1 applic TP HS [facility]O Last Admin: 11/29/18 22:30 Dose: 1 applic Sodium Chloride (Normal Saline -) 1,000 mls @ 125 mls/hr IV ASDIR TAVO Last Admin: 11/29/18 16:59 Dose: 125 mls/hr Dopamine HCl 400,000 mcg/ (Sodium Chloride) 250 mls @ 6.8 mls/hr IV TITR [facility]; Protocol Last Admin: 11/30/18 04:00 Dose: 2 mcg/kg/min, 6.8 mls/hr Insulin Aspart (Novolog Vial Sliding Scale -) 1 vial SQ ACHS [facility]; Protocol Last Admin: 11/30/18 06:32 Dose: Not Given Mupirocin (Bactroban Ointment (For Decolonization) -) 1 applic NS BID [facility] Stop: 12/03/18 21:59 Last Admin: 11/29/18 22:30 Dose: 1 applic Pantoprazole Sodium (Protonix -) 20 mg PO BID [facility] Last Admin: 11/29/18 22:12 Dose: 20 mg - Objective Vital Signs: Vital Signs Temperature 97.7 F 11/30/18 00:00 Pulse Rate 103 H 11/30/18 06:00 Respiratory Rate 21 H 11/30/18 06:00 Blood Pressure 103/52 L 11/30/18 06:00 O2 Sat by Pulse Oximetry (%) 100 11/29/18 21:00 Vital Signs Period Temp Pulse Resp BP Sys/Gallardo Pulse Ox Last 24 Hr 97.7 F-98.2 F 76-103 13-21 89-159/50-75 93-100 Intake & Output 11/29/18 11/29/18 11/30/18 15:59 23:59 07:59 Intake Total 500 1595 6850 Output Total 900 1000 Balance 575 898 8839 Weight 200 lb 198 lb 10.184 oz Intake: IV 500 1595 6150 Intropin - 400,000 Mcg In 8 Normal Saline - 240 ml @ 2 MCG/KG/MIN 6.8 mls/hr IV TITR [facility] Rx#: [id number] Normal Saline - 1,000 ml 1500 @ 125 mls/hr IV ASDIR TAVO Rx#:[id number] protonix 95 6142 Oral 0 Packed Cells 700 Output: Urine 900 1000 Void 900 1000 Other: Voiding Method Urinal Toilet # Unmeasured Voids Void 1 2 Bowel Movement Yes Yes # Bowel Movements 2 1 Height 5 ft 6 in Body Mass Index (BMI) 32.3 Weight Measurement Method Built in [facility] Constitutional: Yes: Well Nourished, No Distress, Calm Eyes: Yes: Conjunctiva Clear, EOM Intact HENT: Yes: Atraumatic, Normocephalic Neck: Yes: Supple, Trachea Midline Cardiovascular: Yes: Regular Rate and Rhythm, S1, S2 Respiratory: Yes: Regular, CTA Bilaterally Gastrointestinal: Yes: Normal Bowel Sounds, Soft, Abdomen, Obese, Distention. No: Tenderness ...Rectal Exam: Yes: Guaiac Positive, Sphincter Tone Normal Genitourinary: No: CVA Tenderness - Left, CVA Tenderness - Right Breast(s): No: Discharge from Nipple, Skin Changes Musculoskeletal: No: Muscle Pain, Muscle Weakness Extremities: No: Cool, Cyanosis Edema: No Peripheral Pulses WNL: Yes Peripheral Pulses: Left Radial: 2+, Right Radial: 2+, Left Doralis Pedis: 2+, Right Dorsalis Pedis: 2+, Left Femoral: 2+, Right Femoral: 2+ Integumentary: No: Jaundice, Tattoos, Tenting Neurological: Yes: Alert, Oriented Psychiatric: Yes: Alert, Oriented Labs: CBC, BMP 11/29/18 21:49 11/29/18 05:55 INR, PTT INR 1.04 (0.83-1.09) 11/28/18 07:22 Problem List - Problems (1) GI bleed Assessment/Plan: 68 yo male with MMP presented with LGIB is poorly localized suspected. Discussed all of the non-operative and operative available options with the family (, son, newphew) and patient. Discussed prognosis and decided to proceed with emergency surgery if IR was not able to intervene. Monitored setting NPO and IVF hydration trend labs consider massive tranfusion protocol repeat CTA and possible IR embolization Discussed (in cypriot with cyracom) with patient risks, benefits and alternatives of Exploratory laparotomy possible subtotal colectomy, including but not limited to bleeding, infection, injury to adjacent structures, leak or injury, intraabdominal abscess, incisional hernia, need for further procedures, ; alternatives include antibiotics, delayed or no surgery - risks of this include failure of nonoperative therapy, perforation, sepsis, recurrence, . Patient desires to proceed with operation - will take to OR for above. Informed consent signed for same. This patient is critically ill. Time spent reviewing chart, examining patient, talking with providers and/or family and documentation is 95 minutes. Code(s): K92.2 - GASTROINTESTINAL HEMORRHAGE, UNSPECIFIED Qualifiers: GI bleed type/associated pathology: unspecified gastrointestinal hemorrhage type Qualified Code(s): K92.2 - Gastrointestinal hemorrhage, unspecified (2) Diabetes Code(s): E11.9 - TYPE 2 DIABETES MELLITUS WITHOUT COMPLICATIONS Qualifiers: Diabetes mellitus type: type 2 Diabetes mellitus theoretical physicist insulin use: with halfway use Diabetes mellitus complication status: with circulatory complication Diabetes mellitus complication detail: with peripheral angiopathy without gangrene Qualified Code(s): E11.51 - Type 2 diabetes mellitus with diabetic peripheral angiopathy without gangrene; Z79.4 - core filer (current) use of insulin (3) HLD (hyperlipidemia) Code(s): E78.5 - HYPERLIPIDEMIA, UNSPECIFIED (4) HTN (hypertension) Code(s): I10 - ESSENTIAL (PRIMARY) HYPERTENSION (5) Hypotension Code(s): I95.9 - HYPOTENSION, UNSPECIFIED (6) Syncope Code(s): R55 - SYNCOPE AND COLLAPSE
--- NOTE | 2018-11-30 08:37 | PN ---
Progress Note (short form) - Note Progress Note: Pt has had multiple BMs with clots and blood through the night. CT angiogram performed, reviewed by me; I do not see any bleeding site. Official radiology report pending. Currently patient is hypotensive but denies abdominal pain. Abdomen is soft, nontender. Labs from this a.m. pending. Will discuss management with surgical technology instructor.
[2018-11-30 08:53] LABS: BASO % 0.1 % (0-2.0); HEMATOCRIT 17.2 % (35.4-49); LYMPH % 8.8 % (8-40); MCH 29.5 pg (25.7-33.7); MCHC 34.2 g/dl (32.0-35.9); MEAN CELL VOLUME 86.4 fl (80-96); MEAN PLT VOLUME 8.5 fl (7.5-11.1); MONO % 3.5 % (3.8-10.2); NEUT % 87.6 % (42.8-82.8); PLATELET COUNT 148 K/MM3 (134-434); RBC 1.99 M/mm3 (4.00-5.60); RDW 14.7 % (11.9-15.9); WHITE BLOOD COUNT 12.8 K/mm3 (4.0-10.0)
[2018-11-30 09:21] LABS: ALBUMIN 1.5 g/dl (3.4-5.0); BILIRUBIN,TOTAL 0.5 mg/dL (0.2-1); BLOOD UREA NITROGEN 11.5 mg/dL (7-18); MAGNESIUM 1.6 mg/dL (1.8-2.4); PHOSPHOROUS 3.6 mg/dL (2.5-4.9); POTASSIUM 4.6 mmol/L (3.5-5.1)
[2018-11-30 09:23] LABS: HEMOGLOBIN 5.9 GM/dL (11.7-16.9)
[2018-11-30 09:36] LABS: CALCIUM 6.1 mg/dL (8.5-10.1)
[2018-11-30] MEDS: PANTOPRAZOLE 20 MG TABLET (FP) PO SCH (10:00)
--- NOTE | 2018-11-30 10:14 | PN ---
Teaching Attending Note Name of Resident: Schuyler Morgan ATTENDING PHYSICIAN STATEMENT I saw and evaluated the patient. I reviewed the resident's note and discussed the case with the resident. I agree with the resident's findings and plan as documented. SUBJECTIVE: Patient seen and examined in the ICU. Awake and alert. BRBPR again noted. Significant drop in H & H. 9 -> 5. Surgery at the bedside. D/W IR will repeat CTA to localized bleeding. Intake & Output 11/27/18 11/28/18 11/29/18 11/30/18 23:59 23:59 23:59 23:59 Intake Total 2950 3715 6850 Output Total 200 1400 1000 Balance 2750 2315 5850 Weight 194 lb 200 lb 198 lb 10.184 oz Last Vital Signs Temp Pulse Resp BP Pulse Ox 97.7 F 103 H 21 H 103/52 L 100 11/30/18 00:00 11/30/18 06:00 11/30/18 06:00 11/30/18 06:00 11/29/18 21:00 Active Medications Acetaminophen (Tylenol -) 650 mg PO Q4H PRN PRN Reason: FEVER Chlorhexidine Gluconate (Hibiclens For Decolonization -) 1 applic TP HS [facility] Last Admin: 11/29/18 22:30 Dose: 1 applic Sodium Chloride (Normal Saline -) 1,000 mls @ 125 mls/hr IV ASDIR T[facility]O Last Admin: 11/29/18 16:59 Dose: 125 mls/hr Dopamine HCl 400,000 mcg/ (Sodium Chloride) 250 mls @ 6.8 mls/hr IV TITR [facility]; Protocol Last Admin: 11/30/18 04:00 Dose: 2 mcg/kg/min, 6.8 mls/hr Insulin Aspart (Novolog Vial Sliding Scale -) 1 vial SQ ACHS [facility]; Protocol Last Admin: 11/30/18 06:32 Dose: Not Given Mupirocin (Bactroban Ointment (For Decolonization) -) 1 applic NS BID [facility] Stop: 12/03/18 21:59 Last Admin: 11/29/18 22:30 Dose: 1 applic Pantoprazole Sodium (Protonix -) 20 mg PO BID [facility] Last Admin: 11/29/18 22:12 Dose: 20 mg GENERAL: The patient is awake, alert, and oriented, NAD HEAD: Normocephalic, atraumatic. EYES: PERRL, sclera anicteric, conjunctiva clear. ENT: Oropharynx clear, without erythema or exudates. Moist mucous membranes. NECK: Supple without lymphadenopathy. LUNGS: Breath sounds equal, clear to auscultation bilaterally. No wheezes, no crackles. No accessory muscle use. HEART: Regular rate and rhythm, S1, S2 without murmur, rub or gallop. ABDOMEN: Soft, NT, ND, (+) BS, no rebound tenderness, no guarding. EXTREMITIES: 2+ radial, 1+ dorsalis pedis pulses bilaterally. Warm, well- perfused. No lower extremity edema bilaterally. 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 NEUROLOGICAL: Non-focal PSYCH: Normal mood, normal affect SKIN: Warm, dry. Laboratory Results - last 24 hr 11/28/18 11/29/18 11/29/18 09:00 11:25 16:32 WBC RBC Hgb Hct MCV MCH MCHC RDW Plt Count MPV Absolute Neuts (auto) Neutrophils % Lymphocytes % Monocytes % Eosinophils % Basophils % Nucleated RBC % Sodium Potassium Chloride Carbon Dioxide Anion Gap BUN Creatinine Est GFR (CKD-EPI)AfAm Est GFR (CKD-EPI)NonAf POC Glucometer 155 131 Random Glucose Calcium Phosphorus Magnesium Total Bilirubin AST ALT Alkaline Phosphatase Total Protein Albumin Blood Type O POSITIVE Antibody Screen Negative Crossmatch See Detail 11/29/18 11/29/18 11/30/18 21:49 22:08 06:05 WBC 10.1 H RBC 2.88 L Hgb 8.7 L Hct 26.4 L MCV 91.7 MCH 30.4 MCHC 33.1 RDW 13.9 Plt Count 101 L D MPV 10.2 D Absolute Neuts (auto) Neutrophils % Lymphocytes % Monocytes % Eosinophils % Basophils % Nucleated RBC % Sodium Potassium Chloride Carbon Dioxide Anion Gap BUN Creatinine Est GFR (CKD-EPI)AfAm Est GFR (CKD-EPI)NonAf POC Glucometer 232 239 Random Glucose Calcium Phosphorus Magnesium Total Bilirubin AST ALT Alkaline Phosphatase Total Protein Albumin Blood Type Antibody Screen Crossmatch 11/30/18 11/30/18 08:25 08:25 WBC 12.8 H RBC 1.99 L Hgb 5.9 L* Hct 17.2 L D MCV 86.4 MCH 29.5 MCHC 34.2 RDW 14.7 Plt Count 148 D MPV 8.5 D Absolute Neuts (auto) 11.2 H Neutrophils % 87.6 H D Lymphocytes % 8.8 D Monocytes % 3.5 L Eosinophils % 0.0 D Basophils % 0.1 Nucleated RBC % 0 Sodium 145 Potassium 4.6 Chloride 120 H Carbon Dioxide 17 L Anion Gap 8 BUN 11.5 Creatinine 1.0 Est GFR (CKD-EPI)AfAm 87.99 Est GFR (CKD-EPI)NonAf 75.92 POC Glucometer Random Glucose 313 H* Calcium 6.1 L* Phosphorus 3.6 Magnesium 1.6 L Total Bilirubin 0.5 AST 17 ALT 10 L Alkaline Phosphatase 36 L Total Protein 3.0 L Albumin 1.5 L Blood Type Antibody Screen Crossmatch ASSESSMENT/PLAN: Symptomatic Acute GI Bleed: suspect lower source Painless GI bleeding S/P Syncope Hypertension Hyperlipidemia Insulin dependent diabetes mellitus Peripheral vascular disease Will need larger bore access For repeat CTA For possible OR if bleeding cannot be emobolized Massive transfusion protocol initiated O2 as needed Mechanical VTE prophylaxis Hold ASA Hold anti-hypertensive medications ICU monitoring for active bleed and tenuous status Dr Zelaya Critical care time spent in reviewing chart, evaluating patient and formulating plan - 36 minutes.
--- NOTE | 2018-11-30 10:32 | EKG ---
Test Reason : Blood Pressure : / mmHG Vent. Rate : 092 BPM Atrial Rate : 092 BPM P-R Int : 136 ms QRS Dur : 092 ms QT Int : 382 ms P-R-T Axes : 035 014 010 degrees QTc Int : 472 ms NORMAL SINUS RHYTHM POOR R WAVE PROGRESSION Confirmed by MOIZ ADAMS MD ([id number]) on 11/30/2018 10:32:00 AM Referred By: Confirmed By:MOIZ ADAMS MD
[2018-11-30] MEDS ORDERED: LIDOCAINE HCL 1%, 10 MG/ML (20ML VIAL) ONE (10:37)
--- NOTE | 2018-11-30 10:48 | PN ---
Progress Note, Physician Chief Complaint: Mr Bean is without complaint. Denies cp, sob, n/v. However patient continues to have bleeding. Passed large amount of blood with clots requiring transfusion. - Current Medication List Current Medications: Active Medications Acetaminophen (Tylenol -) 650 mg PO Q4H PRN PRN Reason: FEVER Chlorhexidine Gluconate (Hibiclens For Decolonization -) 1 applic TP HS [facility]O Last Admin: 11/29/18 22:30 Dose: 1 applic Sodium Chloride (Normal Saline -) 1,000 mls @ 125 mls/hr IV ASDIR [facility]O Last Admin: 11/29/18 16:59 Dose: 125 mls/hr Dopamine HCl 400,000 mcg/ (Sodium Chloride) 250 mls @ 6.8 mls/hr IV TITR [facility]; Protocol Last Admin: 11/30/18 04:00 Dose: 2 mcg/kg/min, 6.8 mls/hr Insulin Aspart (Novolog Vial Sliding Scale -) 1 vial SQ ACHS [facility]; Protocol Last Admin: 11/30/18 06:32 Dose: Not Given Mupirocin (Bactroban Ointment (For Decolonization) -) 1 applic NS BID [facility] Stop: 12/03/18 21:59 Last Admin: 11/29/18 22:30 Dose: 1 applic Pantoprazole Sodium (Protonix -) 20 mg PO BID [facility] Last Admin: 11/29/18 22:12 Dose: 20 mg - Objective Vital Signs: Vital Signs Temperature 36.5 C 11/30/18 00:00 Pulse Rate 103 H 11/30/18 06:00 Respiratory Rate 21 H 11/30/18 06:00 Blood Pressure 103/52 L 11/30/18 06:00 O2 Sat by Pulse Oximetry (%) 100 11/29/18 21:00 Constitutional: Yes: Well Nourished, No Distress, Calm Cardiovascular: Yes: Tachycardia. No: Gallop, Murmur, Rub Respiratory: Yes: Regular, CTA Bilaterally. No: Rales, Rhonchi Gastrointestinal: Yes: Normal Bowel Sounds, Soft. No: Distention, Tenderness Extremities: Yes: WNL Edema: No Labs: CBC, BMP 11/30/18 08:25 11/30/18 08:25 INR, PTT INR 1.04 (0.83-1.09) 11/28/18 07:22 Problem List - Problems (1) GI bleed Code(s): K92.2 - GASTROINTESTINAL HEMORRHAGE, UNSPECIFIED Qualifiers: GI bleed type/associated pathology: unspecified gastrointestinal hemorrhage type Qualified Code(s): K92.2 - Gastrointestinal hemorrhage, unspecified (2) Syncope Code(s): R55 - SYNCOPE AND COLLAPSE (3) Hypotension Code(s): I95.9 - HYPOTENSION, UNSPECIFIED (4) HTN (hypertension) Code(s): I10 - ESSENTIAL (PRIMARY) HYPERTENSION (5) Diabetes Code(s): E11.9 - TYPE 2 DIABETES MELLITUS WITHOUT COMPLICATIONS Qualifiers: Diabetes mellitus type: type 2 Diabetes mellitus long term care administrator insulin use: with retirement use Diabetes mellitus complication status: with circulatory complication Diabetes mellitus complication detail: with peripheral angiopathy without gangrene Qualified Code(s): E11.51 - Type 2 diabetes mellitus with diabetic peripheral angiopathy without gangrene; Z79.4 - nursing home (current) use of insulin (6) HLD (hyperlipidemia) Code(s): E78.5 - HYPERLIPIDEMIA, UNSPECIFIED Assessment/Plan (1) GI bleed Assessment/Plan: -much brisker today -case d/w GI, pulmonary, and surgery -continue transfusions -repeat CTA today -may need R hemicolectomy depending on CTA results -continue ICU monitoring Code(s): K92.2 - GASTROINTESTINAL HEMORRHAGE, UNSPECIFIED Qualifiers: GI bleed type/associated pathology: unspecified gastrointestinal hemorrhage type Qualified Code(s): K92.2 - Gastrointestinal hemorrhage, unspecified (2) Syncope Assessment/Plan: -blood pressure improved -on bed rest, PT consult now stable Code(s): R55 - SYNCOPE AND COLLAPSE (3) Hypotension Assessment/Plan: -recurred secondary to GI bleed with acute blood loss anemia -continue transfusion and IVF -evaluation and treatment as above Code(s): I95.9 - HYPOTENSION, UNSPECIFIED (4) HTN (hypertension) Assessment/Plan: -on metoprolol and lisinopril at home -holding secondary to hemodynamic instability Code(s): I10 - ESSENTIAL (PRIMARY) HYPERTENSION (5) Diabetes Assessment/Plan: -currently npo, place on diabetic diet when able to eat -FSBS qac and qhs -SSI Code(s): E11.9 - TYPE 2 DIABETES MELLITUS WITHOUT COMPLICATIONS Qualifiers: Diabetes mellitus type: type 2 Diabetes mellitus retirement insulin use: with retirement use Diabetes mellitus complication status: with circulatory complication Diabetes mellitus complication detail: with peripheral angiopathy without gangrene Qualified Code(s): E11.51 - Type 2 diabetes mellitus with diabetic peripheral angiopathy without gangrene; Z79.4 - nursing home (current) use of insulin (6) HLD (hyperlipidemia) Assessment/Plan: -on simvastatin at home -hold currently Code(s): E78.5 - HYPERLIPIDEMIA, UNSPECIFIED 32 minutes spent in critical care with this patient
[2018-11-30] MEDS ORDERED: CALCIUM GLUCONATE 10% - 1,000 MG/10 ML VIAL IVPUSH ONE (11:45)
[2018-11-30 11:54] LABS: HEMATOCRIT 26.1 % (35.4-49); HEMOGLOBIN 8.6 GM/dL (11.7-16.9); MCH 29.5 pg (25.7-33.7); MCHC 33.1 g/dl (32.0-35.9); MEAN CELL VOLUME 89.2 fl (80-96); MEAN PLT VOLUME 8.6 fl (7.5-11.1); PLATELET COUNT 146 K/MM3 (134-434); RBC 2.93 M/mm3 (4.00-5.60); RDW 15.6 % (11.9-15.9); WHITE BLOOD COUNT 16.2 K/mm3 (4.0-10.0)
[2018-11-30] MEDS: SODIUM CHLORIDE 1,000 ML IV SCH ×2 (12:00→19:28)
[2018-11-30] MEDS: MUPIROCIN 2% TOPICAL OINTMENT FOR DECOLONIZATION NS SCH (13:02)
[2018-11-30] MEDS ORDERED: cefOXitin SODIUM 2 GM VIAL (RESTRICTED TO ID) IVPB ONE (14:20)
[2018-11-30] MEDS ORDERED: cefoTEtan DISODIUM 2 GM VIAL (RESTRICTED TO ID) IVPB ONE (14:20)
[2018-11-30] MEDS ORDERED: DESFLURANE GAS 240 ML BOTTLE IH ONE (14:23)
[2018-11-30] MEDS ORDERED: fentaNYL CITRATE 250 MCG/5 ML VIAL ONE (14:25)
[2018-11-30] MEDS ORDERED: CEFOXITIN SODIUM 2 GM IVPB ONE (14:25)
[2018-11-30] MEDS ORDERED: CEFOXITIN SODIUM 1 GM IVPB ONE (14:26)
[2018-11-30] MEDS ORDERED: LIDOCAINE HCL/PF 2% SDV 5ML VIAL ONE (14:26)
[2018-11-30] MEDS ORDERED: ETOMIDATE 20 MG/10 ML AMPUL IVPUSH ONE (14:26)
[2018-11-30] MEDS ORDERED: SUCCINYLCHOLINE CHLORIDE 200 MG/10 ML SYRINGE ONE (14:26)
[2018-11-30] MEDS ORDERED: ROCURONIUM BROMIDE 50 MG/5 ML SYRINGE ONE ×2 (14:27→15:50)
[2018-11-30] MEDS ORDERED: HYDROmorphone HCl 2 MG/ML VIAL ONE (15:07)
[2018-11-30] MEDS ORDERED: NEOSTIGMINE METHYLSULFATE 0.5 MG/ML - 10 ML MDV ONE (16:24)
[2018-11-30] MEDS ORDERED: DEXAMETHASONE SOD PHOSPHATE 4 MG/1 ML VIAL ONE (16:25)
[2018-11-30] MEDS ORDERED: GLYCOPYRROLATE 0.2 MG/1 ML VIAL ONE (16:42)
[2018-11-30] MEDS ORDERED: DEXAMETHASONE SOD PHOSPHATE 4 MG/1 ML VIAL IVPUSH PRN ×2 (17:21→18:38)
[2018-11-30] MEDS ORDERED: ONDANSETRON 4 MG/2 ML VIAL IVPUSH PRN (17:21)
[2018-11-30] MEDS ORDERED: PROMETHAZINE HCL 25 MG/1 ML VIAL IVPB PRN (17:21)
[2018-11-30] MEDS ORDERED: HYDROmorphone *PCA* 10MG/50ML DISP.SYRIN PCA SCH (17:30)
[2018-11-30] MEDS ORDERED: HYDROmorphone *PCA* 10MG/50ML DISP.SYRIN ONE (17:30)
--- NOTE | 2018-11-30 17:41 | OP ---
Operative Note - Note: Operative Date: 11/30/18 Pre-Operative Diagnosis: Lower GI bleed Operation: exploratory laparotomy, subtotal colectomy Findings: clots in the cecum and ascending colon, no other obvious sources Post-Operative Diagnosis: Same as Pre-op Surgeon: Meet Naranjo Property Claim Rep: Marcus Farmer Anesthesiologist/DRY CANS OPERATOR: Rebecca Brownlee Anesthesia: General Specimens Removed: terminal ileum, subtotal colon (cecum, ascending, transverse with omentum, descending and portion of sigmoid colon) anatomosis staple line Estimated Blood Loss (mls): 100 Drains, Volume Out (mls): 375 (pretty) Blood Volume Replaced (mls): 3 (2RBC, 1Platelets ) Fluid Volume Replaced (mls): 3,500 (crystalloid ) Operative Report Dictated: Yes
[2018-11-30] MEDS ORDERED: ACETAMINOPHEN 325 MG TABLET (FP) PO PRN (18:38)
[2018-11-30] MEDS: HYDROmorphone *PCA* 10MG/50ML DISP.SYRIN PCA SCH (19:29)
[2018-11-30 20:31] LABS: HEMATOCRIT 30.4 % (35.4-49); HEMOGLOBIN 10.2 GM/dL (11.7-16.9); MCHC 33.5 g/dl (32.0-35.9); MEAN CELL VOLUME 89.7 fl (80-96); MEAN PLT VOLUME 8.5 fl (7.5-11.1); PLATELET COUNT 137 K/MM3 (134-434); RBC 3.39 M/mm3 (4.00-5.60); RDW 14.8 % (11.9-15.9); WHITE BLOOD COUNT 20.7 K/mm3 (4.0-10.0)
[2018-11-30] MEDS ORDERED: CHLORHEXIDINE GLUCONATE 4% CLEANSER FOR DECOLONIZATION TP SCH (22:00)
[2018-11-30] MEDS ORDERED: PANTOPRAZOLE 20 MG TABLET (FP) PO SCH (22:00)
[2018-11-30] MEDS ORDERED: MUPIROCIN 2% TOPICAL OINTMENT FOR DECOLONIZATION NS SCH (22:00)
--- NOTE | 2018-12-01 06:23 | PN ---
Physical Exam: SUBJECTIVE: Patient seen and examined OBJECTIVE: Vital Signs Period Temp Pulse Resp BP Sys/Gallardo Pulse Ox Last 24 Hr 97.8 F-98.6 F 77-113 12-23 79-140/43-69 97-100 GENERAL: The patient is awake, alert, and fully oriented, in no acute distress. HEAD: Normal with no signs of trauma. EYES: PERRL, extraocular movements intact, sclera anicteric, conjunctiva clear. No ptosis. ENT: Ears normal, nares patent, oropharynx clear without exudates, moist mucous membranes. NECK: Trachea midline, full range of motion, supple. LUNGS: Breath sounds equal, clear to auscultation bilaterally, no wheezes, no crackles, no accessory muscle use. HEART: Regular rate and rhythm, S1, S2 without murmur, rub or gallop. ABDOMEN: Soft, nontender, nondistended, normoactive bowel sounds, no guarding, no rebound, no hepatosplenomegaly, no masses. EXTREMITIES: 2+ pulses, warm, well-perfused, no edema. NEUROLOGICAL: Cranial nerves II through XII grossly intact. Normal speech, gait not observed. PSYCH: Normal mood, normal affect. SKIN: Warm, dry, normal turgor, no rashes or lesions noted Laboratory Results - last 24 hr 11/28/18 11/30/18 11/30/18 09:00 08:25 08:25 WBC 12.8 H RBC 1.99 L Hgb 5.9 L* Hct 17.2 L D MCV 86.4 MCH 29.5 MCHC 34.2 RDW 14.7 Plt Count 148 D MPV 8.5 D Absolute Neuts (auto) 11.2 H Neutrophils % 87.6 H D Lymphocytes % 8.8 D Monocytes % 3.5 L Eosinophils % 0.0 D Basophils % 0.1 Nucleated RBC % 0 Fibrinogen Sodium 145 Potassium 4.6 Chloride 120 H Carbon Dioxide 17 L Anion Gap 8 BUN 11.5 Creatinine 1.0 Est GFR (CKD-EPI)AfAm 87.99 Est GFR (CKD-EPI)NonAf 75.92 POC Glucometer Random Glucose 313 H* Calcium 6.1 L* Phosphorus 3.6 Magnesium 1.6 L Total Bilirubin 0.5 AST 17 ALT 10 L Alkaline Phosphatase 36 L Total Protein 3.0 L Albumin 1.5 L Blood Type O POSITIVE Antibody Screen Negative Crossmatch See Detail Crossmatch IS Only See Detail 11/30/18 11/30/18 11/30/18 08:25 11:30 12:57 WBC 16.2 H RBC 2.93 L Hgb 8.6 L Hct 26.1 L D MCV 89.2 MCH 29.5 MCHC 33.1 RDW 15.6 Plt Count 146 MPV 8.6 Absolute Neuts (auto) Neutrophils % Lymphocytes % Monocytes % Eosinophils % Basophils % Nucleated RBC % Fibrinogen 138.0 L Sodium Potassium Chloride Carbon Dioxide Anion Gap BUN Creatinine Est GFR (CKD-EPI)AfAm Est GFR (CKD-EPI)NonAf POC Glucometer 261 Random Glucose Calcium Phosphorus Magnesium Total Bilirubin AST ALT Alkaline Phosphatase Total Protein Albumin Blood Type Antibody Screen Crossmatch Crossmatch IS Only 11/30/18 11/30/18 11/30/18 18:21 20:05 20:07 WBC 20.7 H RBC 3.39 L Hgb 10.2 L Hct 30.4 L D MCV 89.7 MCH 30.0 MCHC 33.5 RDW 14.8 Plt Count 137 MPV 8.5 Absolute Neuts (auto) Neutrophils % Lymphocytes % Monocytes % Eosinophils % Basophils % Nucleated RBC % Fibrinogen Sodium Potassium Chloride Carbon Dioxide Anion Gap BUN Creatinine Est GFR (CKD-EPI)AfAm Est GFR (CKD-EPI)NonAf POC Glucometer 200 217 Random Glucose Calcium Phosphorus Magnesium Total Bilirubin AST ALT Alkaline Phosphatase Total Protein Albumin Blood Type Antibody Screen Crossmatch Crossmatch IS Only 12/01/18 05:33 WBC RBC Hgb Hct MCV MCH MCHC RDW Plt Count MPV Absolute Neuts (auto) Neutrophils % Lymphocytes % Monocytes % Eosinophils % Basophils % Nucleated RBC % Fibrinogen Sodium Potassium Chloride Carbon Dioxide Anion Gap BUN Creatinine Est GFR (CKD-EPI)AfAm Est GFR (CKD-EPI)NonAf POC Glucometer 235 Random Glucose Calcium Phosphorus Magnesium Total Bilirubin AST ALT Alkaline Phosphatase Total Protein Albumin Blood Type Antibody Screen Crossmatch Crossmatch IS Only Active Medications Generic Name Dose Route Start Last Admin Trade Name Freq PRN Reason Stop Dose Admin Acetaminophen 650 mg 11/30/18 18:38 Tylenol - PO Q4H PRN FEVER Chlorhexidine Gluconate 1 applic 11/30/18 22:00 Hibiclens For Decolonization - TP HS [facility] Dexamethasone Sodium Phosphate 4 mg 11/30/18 18:38 Decadron Injection - IVPUSH ONCE PRN NAUSEA AND/OR VOMITING Diphenhydramine HCl 12.5 mg 11/30/18 18:38 Benadryl Injection - IVPUSH ONCE PRN FOR ITCHING Hydromorphone HCl 10 mg 11/30/18 18:38 11/30/18 19:29 Hydromorphone 10 Mg/50 Ml-Ns TOXICOLOGIST 12/07/18 17:21 10 mg TOXICOLOGIST [facility] Administration Protocol Sodium Chloride 1,000 mls @ 125 mls/hr 11/30/18 18:38 11/30/18 19:28 Normal Saline - IV 125 mls/hr ASDIR [facility] Administration Insulin Aspart 1 vial 11/30/18 22:00 Novolog Vial Sliding Scale - SQ ACHS [facility] Protocol Mupirocin 1 applic 11/30/18 22:00 Bactroban Ointment (For Decolonization) - NS 12/03/18 21:59 BID [facility] Pantoprazole Sodium 20 mg 11/30/18 22:30 Protonix Iv IVPUSH BID [facility] ASSESSMENT/PLAN: Last night pt noted to have low BP and active rectal bleeding, given 2 units PRBC and 6L NS without improvment in H/H. Dr. Damian, GI, saw pt at bedside this am prior to h/h results, states pt is to unstable to re-scope, will possibly need a partial colectomy. GI also states the APCT with contrast was read as negative for active bleed however, thinks there may be a blemish on the right side of the colon. This am, pt noted again to have low bp (MAPs in the 50s-60s) and BRBPR, 1 more unit PRBC ordeed along with another stat CBC. Repeat hemoglobin noted to drop to 5.9, massive transfusion protocol initiated immediately along with page to IR (Dr. Rice) and Gen Surg (Dr. Naranjo). Dr. Caldera found to be public relations for IR, states we do not have viceral IR or RBC tagged study capabilities in the hospital and recommends redoing APCT with contrast if the bleed is currently active, we may be able to isolate the bleed and IR may attempt to coil it. Pt APCT with contrast read NELSON by public relations radiology and Dr. Caldera as no active bleed that can be isolated, Dr. Portland contacted immediately and decision is made to proceed with a subtotal dianelys-collectomy. Prior to surgery, pts BP improved and H/H status shows improvement and no active bleeding noted from the rectum. Pts BP shows improvement after surgery, pt AOX4, denies dizziness, weakness Will continue to repeat CBC for h/h status and transfuse as needed.
[2018-12-01 06:27] LABS: HEMATOCRIT 26.2 % (35.4-49); HEMOGLOBIN 8.9 GM/dL (11.7-16.9); MCH 29.9 pg (25.7-33.7); MEAN CELL VOLUME 87.8 fl (80-96); MEAN PLT VOLUME 8.6 fl (7.5-11.1); PLATELET COUNT 165 K/MM3 (134-434); RBC 2.98 M/mm3 (4.00-5.60); RDW 15.2 % (11.9-15.9); WHITE BLOOD COUNT 22.3 K/mm3 (4.0-10.0)
[2018-12-01 06:49] LABS: ALBUMIN 1.9 g/dl (3.4-5.0); BILIRUBIN,TOTAL 0.4 mg/dL (0.2-1); BLOOD UREA NITROGEN 12.2 mg/dL (7-18); CALCIUM 7.3 mg/dL (8.5-10.1); CREATININE 1.1 mg/dL (0.55-1.3); MAGNESIUM 1.5 mg/dL (1.8-2.4); PHOSPHOROUS 3.1 mg/dL (2.5-4.9); POTASSIUM 4.5 mmol/L (3.5-5.1); TOT PROT 3.7 g/dl (6.4-8.2)
--- NOTE | 2018-12-01 08:22 | PN ---
Progress Note, Physician Chief Complaint: gib History of Present Illness: 68yo male PMH HTN, HLD, PVD presents with with 3 episodes of BRBPR this morning. He states that he was in his normal state of health yesterday and having no problems. stable overnight since surgery. - Current Medication List Current Medications: Active Medications Acetaminophen (Tylenol -) 650 mg PO Q4H PRN PRN Reason: FEVER Chlorhexidine Gluconate (Hibiclens For Decolonization -) 1 applic TP HS [facility] Dexamethasone Sodium Phosphate (Decadron Injection -) 4 mg IVPUSH ONCE PRN PRN Reason: NAUSEA AND/OR VOMITING Diphenhydramine HCl (Benadryl Injection -) 12.5 mg IVPUSH ONCE PRN PRN Reason: FOR ITCHING Hydromorphone HCl (Hydromorphone 10 Mg/50 Ml-Ns) 10 mg CORE SUCKER CORE SUCKER [facility]; Protocol Stop: 12/07/18 17:21 Last Admin: 11/30/18 19:29 Dose: 10 mg Sodium Chloride (Normal Saline -) 1,000 mls @ 125 mls/hr IV ASDIR [facility] Last Admin: 11/30/18 19:28 Dose: 125 mls/hr Insulin Aspart (Novolog Vial Sliding Scale -) 1 vial SQ ACHS [facility]; Protocol Mupirocin (Bactroban Ointment (For Decolonization) -) 1 applic NS BID [facility] Stop: 12/03/18 21:59 Pantoprazole Sodium (Protonix Iv) 20 mg IVPUSH BID [facility] - Objective Vital Signs: Vital Signs Temperature 98.1 F 11/30/18 22:00 Pulse Rate 76 12/01/18 06:00 Respiratory Rate 15 12/01/18 06:00 Blood Pressure 119/60 12/01/18 06:00 O2 Sat by Pulse Oximetry (%) 97 11/30/18 20:28 Vital Signs Period Temp Pulse Resp BP Sys/Gallardo Pulse Ox Last 24 Hr 97.8 F-98.6 F 76-113 15-23 114-140/55-96 96-100 Intake & Output 11/30/18 12/01/18 12/01/18 23:59 07:59 15:59 Intake Total 1705 1383 Output Total 1200 1500 Balance 505 -117 Weight 204 lb 8 oz Intake: IV 900 1376 Normal Saline - 1,000 ml 900 @ 125 mls/hr IV ASDIR [facility] Rx#:[id number] Normal Saline - 1,000 ml 1376 @ 125 mls/hr IV ASDIR [facility] Rx#:[id number] IVPB 5 7 Other 800 Output: Urine 500 1500 Lamb 1500 Estimated Blood Loss 100 Other 600 Other: Voiding Method Indwelling Catheter Indwelling Catheter Bowel Movement No No Weight Measurement Method Built in Bedscale Constitutional: Yes: Well Nourished, No Distress, Calm Eyes: Yes: Conjunctiva Clear, EOM Intact HENT: Yes: Atraumatic, Normocephalic Neck: Yes: Supple, Trachea Midline Cardiovascular: Yes: Regular Rate and Rhythm, S1, S2 Respiratory: Yes: Regular, CTA Bilaterally Gastrointestinal: Yes: Soft, Abdomen, Obese, Distention, Hypoactive Bowel Sounds , Tenderness, Other (midline dressing) ...Rectal Exam: Yes: Deferred Genitourinary: No: CVA Tenderness - Left, CVA Tenderness - Right Musculoskeletal: No: Joint Swelling, Muscle Pain Extremities: No: Cool, Cyanosis Edema: Yes Edema: LUE: 1+, RUE: 1+, LLE: 1+, RLE: 1+ Peripheral Pulses WNL: Yes Peripheral Pulses: Left Radial: 2+, Right Radial: 2+, Left Doralis Pedis: 2+, Right Dorsalis Pedis: 2+, Left Femoral: 2+, Right Femoral: 2+ Wound/Incision: Yes: Clean/Dry, Well Approximated, Dressing Dry and Intact Neurological: Yes: Alert, Oriented Psychiatric: Yes: Alert, Oriented Labs: CBC, BMP 12/01/ 05:32 12/01/18 05:32 INR, PTT INR 1.04 (0.83-1.09) 11/28/18 07:22 Fibrinogen 138.0 mg/dL (238-498) L 11/30/18 08:25 Problem List - Problems (1) GI bleed Assessment/Plan: 68 yo male with MMP presented with LGIB is poorly localized suspected. Discussed all of the non-operative and operative available options with the family (, son, newphew) and patient. POD#1 s/p subtotal colectomy, no obvious continued GI bleeding noted. Patient was noted to be hemodynamically stable overnight with adequate urine output continue monitored setting NPO and IVF hydration NGT decompression trend labs and replace electroytes Remove dressing 6/24 Physical therapy evaluation OOB to chair encourage IS I will be away on 12/03 & 12/04 I am available by phone for questions, Dr. Farmer will be available for emergencies. This patient is critically ill. Time spent reviewing chart, examining patient, talking with providers and/or family and documentation is 95 minutes. Code(s): K92.2 - GASTROINTESTINAL HEMORRHAGE, UNSPECIFIED Qualifiers: GI bleed type/associated pathology: unspecified gastrointestinal hemorrhage type Qualified Code(s): K92.2 - Gastrointestinal hemorrhage, unspecified (2) Diabetes Code(s): E11.9 - TYPE 2 DIABETES MELLITUS WITHOUT COMPLICATIONS Qualifiers: Diabetes mellitus type: type 2 Diabetes mellitus snf insulin use: with intermediate card tender use Diabetes mellitus complication status: with circulatory complication Diabetes mellitus complication detail: with peripheral angiopathy without gangrene Qualified Code(s): E11.51 - Type 2 diabetes mellitus with diabetic peripheral angiopathy without gangrene; Z79.4 - salvage determiner (current) use of insulin (3) HLD (hyperlipidemia) Code(s): E78.5 - HYPERLIPIDEMIA, UNSPECIFIED (4) HTN (hypertension) Code(s): I10 - ESSENTIAL (PRIMARY) HYPERTENSION (5) Hypotension Code(s): I95.9 - HYPOTENSION, UNSPECIFIED (6) Syncope Code(s): R55 - SYNCOPE AND COLLAPSE
[2018-12-01] MEDS ORDERED: MAGNESIUM SULF 50% (8.12 MEQ/2 ML-1 GM VIAL) IVPB ONE (09:25)
[2018-12-01] MEDS: PANTOPRAZOLE SODIUM 40 MG VIAL IVPUSH SCH ×3 (09:25→22:54)
[2018-12-01] MEDS: SODIUM CHLORIDE 1,000 ML IV SCH (09:26)
[2018-12-01] MEDS: MUPIROCIN 2% TOPICAL OINTMENT FOR DECOLONIZATION NS SCH ×3 (09:31→22:53)
[2018-12-01] MEDS: LACTATED RINGERS SOLUTION 1,000 ML/1,000 ML INFUS.BAG IV SCH ×3 (09:40→23:00)
--- NOTE | 2018-12-01 09:40 | PN ---
Teaching Attending Note Name of Resident: Juan Wolfe ATTENDING PHYSICIAN STATEMENT I saw and evaluated the patient. I reviewed the resident's note and discussed the case with the resident. I agree with the resident's findings and plan as documented. SUBJECTIVE: Patient seen and examined in the ICU. Awake and alert. POD #1 exploratory laparotomy and subtotal colectomy. Findings: clots in the cecum and ascending colon, no other obvious sources BRBPR noted. H&H stable. Intake & Output 11/28/18 11/29/18 11/30/18 12/01/18 23:59 23:59 23:59 23:59 Intake Total 2950 3715 97829 1383 Output Total 200 1400 2700 1500 Balance 2750 2315 7605 -117 Weight 194 lb 200 lb 198 lb 10.184 oz 204 lb 8 oz Last Vital Signs Temp Pulse Resp BP Pulse Ox 98.1 F 98 H 16 140/96 96 11/30/18 22:00 12/01/18 08:00 12/01/18 08:00 12/01/18 08:00 12/01/18 08:54 Active Medications Acetaminophen (Tylenol -) 650 mg PO Q4H PRN PRN Reason: FEVER Chlorhexidine Gluconate (Hibiclens For Decolonization -) 1 applic TP HS [facility] Dexamethasone Sodium Phosphate (Decadron Injection -) 4 mg IVPUSH ONCE PRN PRN Reason: NAUSEA AND/OR VOMITING Diphenhydramine HCl (Benadryl Injection -) 12.5 mg IVPUSH ONCE PRN PRN Reason: FOR ITCHING Hydromorphone HCl (Hydromorphone 10 Mg/50 Ml-Ns) 10 mg PRODUCTION CONTROL EXPERT PRODUCTION CONTROL EXPERT [facility]; Protocol Stop: 12/07/18 17:21 Last Admin: 11/30/18 19:29 Dose: 10 mg Lactated Ringer's (Lactated Ringers Solution) 1,000 ml in 1,000 mls @ 125 mls/ hr IV ASDIR [facility] Last Admin: 12/01/18 09:40 Dose: 125 mls/hr Insulin Aspart (Novolog Vial Sliding Scale -) 1 vial SQ ACHS [facility]; Protocol Mupirocin (Bactroban Ointment (For Decolonization) -) 1 applic NS BID [facility] Stop: 12/03/18 21:59 Last Admin: 12/01/18 09:41 Dose: 1 inch Pantoprazole Sodium (Protonix Iv) 20 mg IVPUSH BID [facility] Last Admin: 12/01/18 09:26 Dose: 20 mg GENERAL: The patient is awake, alert, and oriented, NAD HEAD: Normocephalic, atraumatic. EYES: PERRL, sclera anicteric, conjunctiva clear. ENT: Oropharynx clear, without erythema or exudates. Moist mucous membranes. NECK: Supple without lymphadenopathy. LUNGS: Breath sounds equal, clear to auscultation bilaterally. No wheezes, no crackles. No accessory muscle use. HEART: Regular rate and rhythm, S1, S2 without murmur, rub or gallop. ABDOMEN: dressing intact CDI, hypoactive BS, mild appropriate pain to palpation EXTREMITIES: 2+ radial, 1+ dorsalis pedis pulses bilaterally. Warm, well- perfused. No lower extremity edema bilaterally. 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 NEUROLOGICAL: Non-focal PSYCH: Normal mood, normal affect SKIN: Warm, dry. Laboratory Results - last 24 hr 11/28/18 11/30/18 11/30/18 09:00 08:25 11:30 WBC 16.2 H RBC 2.93 L Hgb 8.6 L Hct 26.1 L D MCV 89.2 MCH 29.5 MCHC 33.1 RDW 15.6 Plt Count 146 MPV 8.6 Fibrinogen 138.0 L Sodium Potassium Chloride Carbon Dioxide Anion Gap BUN Creatinine Est GFR (CKD-EPI)AfAm Est GFR (CKD-EPI)NonAf POC Glucometer Random Glucose Calcium Phosphorus Magnesium Total Bilirubin AST ALT Alkaline Phosphatase Total Protein Albumin Blood Type O POSITIVE Antibody Screen Negative Crossmatch See Detail Crossmatch IS Only See Detail 11/30/18 11/30/18 11/30/18 12:57 18:21 20:05 WBC 20.7 H RBC 3.39 L Hgb 10.2 L Hct 30.4 L D MCV 89.7 MCH 30.0 MCHC 33.5 RDW 14.8 Plt Count 137 MPV 8.5 Fibrinogen Sodium Potassium Chloride Carbon Dioxide Anion Gap BUN Creatinine Est GFR (CKD-EPI)AfAm Est GFR (CKD-EPI)NonAf POC Glucometer 261 200 Random Glucose Calcium Phosphorus Magnesium Total Bilirubin AST ALT Alkaline Phosphatase Total Protein Albumin Blood Type Antibody Screen Crossmatch Crossmatch IS Only 11/30/18 12/01/18 12/01/18 20:07 05:32 05:32 WBC 22.3 H RBC 2.98 L Hgb 8.9 L Hct 26.2 L MCV 87.8 MCH 29.9 MCHC 34.0 RDW 15.2 Plt Count 165 D MPV 8.6 Fibrinogen Sodium 147 H Potassium 4.5 Chloride 121 H Carbon Dioxide 20 L Anion Gap 6 L BUN 12.2 Creatinine 1.1 Est GFR (CKD-EPI)AfAm 78.41 Est GFR (CKD-EPI)NonAf 67.66 POC Glucometer 217 Random Glucose 253 H Calcium 7.3 L Phosphorus 3.1 Magnesium 1.5 L Total Bilirubin 0.4 AST 13 L ALT 12 L Alkaline Phosphatase 41 L Total Protein 3.7 L Albumin 1.9 L Blood Type Antibody Screen Crossmatch Crossmatch IS Only 12/01/18 05:33 WBC RBC Hgb Hct MCV MCH MCHC RDW Plt Count MPV Fibrinogen Sodium Potassium Chloride Carbon Dioxide Anion Gap BUN Creatinine Est GFR (CKD-EPI)AfAm Est GFR (CKD-EPI)NonAf POC Glucometer 235 Random Glucose Calcium Phosphorus Magnesium Total Bilirubin AST ALT Alkaline Phosphatase Total Protein Albumin Blood Type Antibody Screen Crossmatch Crossmatch IS Only ASSESSMENT/PLAN: Symptomatic Acute GI Bleed: suspect lower source Painless GI bleeding S/P Syncope Hypertension Hyperlipidemia Insulin dependent diabetes mellitus Peripheral vascular disease Normal transfusion thresholds PO when cleared by surgery O2 as needed Mechanical VTE prophylaxis Close monitoring of BP Requires continued ICU monitoring Dr Zelaya Critical care time spent in reviewing chart, evaluating patient and formulating plan - 36 minutes.
--- NOTE | 2018-12-01 09:47 | PN ---
Progress Note, Physician Chief Complaint: Mr Bean says he is comfortable today and pain is controlled. No cp or sob. - Current Medication List Current Medications: Active Medications Acetaminophen (Tylenol -) 650 mg PO Q4H PRN PRN Reason: FEVER Chlorhexidine Gluconate (Hibiclens For Decolonization -) 1 applic TP HS [facility] Dexamethasone Sodium Phosphate (Decadron Injection -) 4 mg IVPUSH ONCE PRN PRN Reason: NAUSEA AND/OR VOMITING Diphenhydramine HCl (Benadryl Injection -) 12.5 mg IVPUSH ONCE PRN PRN Reason: FOR ITCHING Hydromorphone HCl (Hydromorphone 10 Mg/50 Ml-Ns) 10 mg BROWN STOCK WASHER BROWN STOCK WASHER [facility]; Protocol Stop: 12/07/18 17:21 Last Admin: 11/30/18 19:29 Dose: 10 mg Lactated Ringer's (Lactated Ringers Solution) 1,000 ml in 1,000 mls @ 125 mls/ hr IV ASDIR [facility] Last Admin: 12/01/18 09:40 Dose: 125 mls/hr Insulin Aspart (Novolog Vial Sliding Scale -) [facility]; Protocol Mupirocin (Bactroban Ointment (For Decolonization) -) 1 applic NS BID [facility] Stop: 12/03/18 21:59 Last Admin: 12/01/18 09:41 Dose: 1 inch Pantoprazole Sodium (Protonix Iv) 20 mg IVPUSH BID [facility] Last Admin: 12/01/18 09:26 Dose: 20 mg - Objective Vital Signs: Vital Signs Temperature 36.7 C 11/30/18 22:00 Pulse Rate 98 H 12/01/18 08:00 Respiratory Rate 16 12/01/18 08:00 Blood Pressure 140/96 12/01/18 08:00 O2 Sat by Pulse Oximetry (%) 96 12/01/18 08:54 Constitutional: Yes: No Distress, Calm, Obese Cardiovascular: Yes: Tachycardia. No: Pulse Irregular, Gallop, Murmur, Rub Respiratory: Yes: Regular, CTA Bilaterally. No: Rales, Rhonchi, Wheezes Gastrointestinal: Yes: Soft, Hypoactive Bowel Sounds, Tenderness. No: Distention Extremities: Yes: WNL Edema: No Labs: CBC, BMP 12/01/18 05:32 12/01/18 05:32 INR, PTT INR 1.04 (0.83-1.09) 11/28/18 07:22 Fibrinogen 138.0 mg/dL (238-498) L 11/30/18 08:25 Problem List - Problems (1) GI bleed Code(s): K92.2 - GASTROINTESTINAL HEMORRHAGE, UNSPECIFIED Qualifiers: GI bleed type/associated pathology: unspecified gastrointestinal hemorrhage type Qualified Code(s): K92.2 - Gastrointestinal hemorrhage, unspecified (2) Syncope Code(s): R55 - SYNCOPE AND COLLAPSE (3) Hypotension Code(s): I95.9 - HYPOTENSION, UNSPECIFIED (4) HTN (hypertension) Code(s): I10 - ESSENTIAL (PRIMARY) HYPERTENSION (5) Diabetes Code(s): E11.9 - TYPE 2 DIABETES MELLITUS WITHOUT COMPLICATIONS Qualifiers: Diabetes mellitus type: type 2 Diabetes mellitus bed bug exterminator insulin use: with bed bug exterminator use Diabetes mellitus complication status: with circulatory complication Diabetes mellitus complication detail: with peripheral angiopathy without gangrene Qualified Code(s): E11.51 - Type 2 diabetes mellitus with diabetic peripheral angiopathy without gangrene; Z79.4 - local intermodal truck driver (current) use of insulin (6) HLD (hyperlipidemia) Code(s): E78.5 - HYPERLIPIDEMIA, UNSPECIFIED Assessment/Plan (1) GI bleed Assessment/Plan: -case d/w GI and surgery -s/p subtotal colectomy, able to attach to sigmoid colon and not with colostomy bag -H/H now stable Code(s): K92.2 - GASTROINTESTINAL HEMORRHAGE, UNSPECIFIED Qualifiers: GI bleed type/associated pathology: unspecified gastrointestinal hemorrhage type Qualified Code(s): K92.2 - Gastrointestinal hemorrhage, unspecified (2) Syncope Assessment/Plan: -blood pressure improved -on bed rest, PT consult now stable Code(s): R55 - SYNCOPE AND COLLAPSE (3) Hypotension Assessment/Plan: -resolved Code(s): I95.9 - HYPOTENSION, UNSPECIFIED (4) HTN (hypertension) Assessment/Plan: -on metoprolol and lisinopril at home -restart when tolerating po Code(s): I10 - ESSENTIAL (PRIMARY) HYPERTENSION (5) Diabetes Assessment/Plan: -currently npo, place on diabetic diet when able to eat -FSBS and SSI Code(s): E11.9 - TYPE 2 DIABETES MELLITUS WITHOUT COMPLICATIONS Qualifiers: Diabetes mellitus type: type 2 Diabetes mellitus nursing home insulin use: with bed bug exterminator use Diabetes mellitus complication status: with circulatory complication Diabetes mellitus complication detail: with peripheral angiopathy without gangrene Qualified Code(s): E11.51 - Type 2 diabetes mellitus with diabetic peripheral angiopathy without gangrene; Z79.4 - intermediate (current) use of insulin (6) HLD (hyperlipidemia) Assessment/Plan: -on simvastatin at home -hold currently Code(s): E78.5 - HYPERLIPIDEMIA, UNSPECIFIED
--- NOTE | 2018-12-01 10:55 | PN ---
Physical Exam: SUBJECTIVE: Patient seen and examined at bedside. No complaints. Stable overnight. OBJECTIVE: Vital Signs Period Temp Pulse Resp BP Sys/Gallardo Pulse Ox Last 24 Hr 98.1 F-98.6 F 76-109 15-23 114-140/55-96 96-100 Gen: Comfortable, sleeping HEENT: NCAT, eomi Neck: R IJ line, supple Cardio: mild tachy, regular, normal s1s2, no mrg noted Pulm: limited exam, cta b/l Abd: laparotomy dressing cdi, mild tenderness at surgical site Ext: scds in place Laboratory Results - last 24 hr 11/28/18 11/30/18 11/30/18 09:00 08:25 11:30 WBC 16.2 H RBC 2.93 L Hgb 8.6 L Hct 26.1 L D MCV 89.2 MCH 29.5 MCHC 33.1 RDW 15.6 Plt Count 146 MPV 8.6 Fibrinogen 138.0 L Sodium Potassium Chloride Carbon Dioxide Anion Gap BUN Creatinine Est GFR (CKD-EPI)AfAm Est GFR (CKD-EPI)NonAf POC Glucometer Random Glucose Calcium Phosphorus Magnesium Total Bilirubin AST ALT Alkaline Phosphatase Total Protein Albumin Blood Type O POSITIVE Antibody Screen Negative Crossmatch See Detail Crossmatch IS Only See Detail 11/30/18 11/30/18 11/30/18 12:57 18:21 20:05 WBC 20.7 H RBC 3.39 L Hgb 10.2 L Hct 30.4 L D MCV 89.7 MCH 30.0 MCHC 33.5 RDW 14.8 Plt Count 137 MPV 8.5 Fibrinogen Sodium Potassium Chloride Carbon Dioxide Anion Gap BUN Creatinine Est GFR (CKD-EPI)AfAm Est GFR (CKD-EPI)NonAf POC Glucometer 261 200 Random Glucose Calcium Phosphorus Magnesium Total Bilirubin AST ALT Alkaline Phosphatase Total Protein Albumin Blood Type Antibody Screen Crossmatch Crossmatch IS Only 11/30/18 12/01/18 12/01/18 20:07 05:32 05:32 WBC 22.3 H RBC 2.98 L Hgb 8.9 L Hct 26.2 L MCV 87.8 MCH 29.9 MCHC 34.0 RDW 15.2 Plt Count 165 D MPV 8.6 Fibrinogen Sodium 147 H Potassium 4.5 Chloride 121 H Carbon Dioxide 20 L Anion Gap 6 L BUN 12.2 Creatinine 1.1 Est GFR (CKD-EPI)AfAm 78.41 Est GFR (CKD-EPI)NonAf 67.66 POC Glucometer 217 Random Glucose 253 H Calcium 7.3 L Phosphorus 3.1 Magnesium 1.5 L Total Bilirubin 0.4 AST 13 L ALT 12 L Alkaline Phosphatase 41 L Total Protein 3.7 L Albumin 1.9 L Blood Type Antibody Screen Crossmatch Crossmatch IS Only 12/01/18 05:33 WBC RBC Hgb Hct MCV MCH MCHC RDW Plt Count MPV Fibrinogen Sodium Potassium Chloride Carbon Dioxide Anion Gap BUN Creatinine Est GFR (CKD-EPI)AfAm Est GFR (CKD-EPI)NonAf POC Glucometer 235 Random Glucose Calcium Phosphorus Magnesium Total Bilirubin AST ALT Alkaline Phosphatase Total Protein Albumin Blood Type Antibody Screen Crossmatch Crossmatch IS Only Active Medications Generic Name Dose Route Start Last Admin Trade Name Freq PRN Reason Stop Dose Admin Acetaminophen 650 mg 11/30/18 18:38 Tylenol - PO Q4H PRN FEVER Chlorhexidine Gluconate 1 applic 11/30/18 22:00 Hibiclens For Decolonization - TP HS [facility] Dexamethasone Sodium Phosphate 4 mg 11/30/18 18:38 Decadron Injection - IVPUSH ONCE PRN NAUSEA AND/OR VOMITING Diphenhydramine HCl 12.5 mg 11/30/18 18:38 Benadryl Injection - IVPUSH ONCE PRN FOR ITCHING Hydromorphone HCl 10 mg 11/30/18 18:38 11/30/18 19:29 Hydromorphone 10 Mg/50 Ml-Ns SKI PATROL OFFICER 12/07/18 17:21 10 mg SKI PATROL OFFICER [facility] Administration Protocol Lactated Ringer's 1,000 ml in 1,000 mls @ 125 mls/hr 12/01/18 09:30 12/01/18 09:40 Lactated Ringers Solution IV 125 mls/hr ASDIR TAVO Administration Insulin Aspart 1 vial 11/30/18 22:00 Novolog Vial Sliding Scale - SQ ACHS [facility] Protocol Mupirocin 1 applic 11/30/18 22:00 12/01/18 09:41 Bactroban Ointment (For Decolonization) - NS 12/03/18 21:59 1 inch BID [facility] Administration Pantoprazole Sodium 20 mg 11/30/18 22:30 12/01/18 09:26 Protonix Iv IVPUSH 20 mg BID [facility] Administration ASSESSMENT/PLAN: Pt is a 68 y/o M with PMH hypertension, hyperlipidemia, insulin dependent diabetes mellitus type II, peripheral vascular disease who presented with BRBPR and presyncople episode. Pt was found to be persistently briskly bleeding with no source on colonoscopy. Pt went for colectomy and is now doing well. No bleed since surg. Stable #persistent, profuse GIB -Hb dropped to 5.9 on 11/30. currently 8.9 -s/p 8 PRBCs -s/p colonoscopy/egd on 11/30. No obvious source identified -s/p CTA without obvious source -s/p subtotal colectomy 11/30 -no bleeding since surg -SKI PATROL OFFICER -LR #DM -BGM ACHS -ISS #HTN -hold antihypertensives insetting of massive GIB #HLD -hold po meds for now Visit type - Emergency Visit Emergency Visit: No - New Patient This patient is new to me today: No - Critical Care Critical Care patient: Yes Total Critical Care Time (in minutes): 45 Critical Care Statement: The care of this patient involved high complexity decision making to prevent further life threatening deterioration of the patient 's condition and/or to evaluate & treat vital organ system(s) failure or risk of failure.
[2018-12-01] MEDS: INSULIN SLIDING SCALE (NOVOLOG) 1 VIAL SQ SCH ×5 (11:21→22:54)
[2018-12-01 12:04] LABS: HEMATOCRIT 25.3 % (35.4-49); HEMOGLOBIN 8.5 GM/dL (11.7-16.9); MCH 29.7 pg (25.7-33.7); MCHC 33.7 g/dl (32.0-35.9); MEAN PLT VOLUME 8.2 fl (7.5-11.1); PLATELET COUNT 168 K/MM3 (134-434); RBC 2.87 M/mm3 (4.00-5.60); RDW 15.3 % (11.9-15.9); WHITE BLOOD COUNT 19.8 K/mm3 (4.0-10.0)
--- NOTE | 2018-12-01 12:23 | PN ---
Progress Note, Physician Chief Complaint: POD1 s/p exlap subtotal colectomy under GA - Current Medication List Current Medications: Active Medications Acetaminophen (Tylenol -) 650 mg PO Q4H PRN PRN Reason: FEVER Chlorhexidine Gluconate (Hibiclens For Decolonization -) 1 applic TP HS [facility] Dexamethasone Sodium Phosphate (Decadron Injection -) 4 mg IVPUSH ONCE PRN PRN Reason: NAUSEA AND/OR VOMITING Diphenhydramine HCl (Benadryl Injection -) 12.5 mg IVPUSH ONCE PRN PRN Reason: FOR ITCHING Hydromorphone HCl (Hydromorphone 10 Mg/50 Ml-Ns) 10 mg CREW MESS ATTENDANT CREW MESS ATTENDANT [facility]; Protocol Stop: 12/07/18 17:21 Last Admin: 11/30/18 19:29 Dose: 10 mg Lactated Ringer's (Lactated Ringers Solution) 1,000 ml in 1,000 mls @ 125 mls/ hr IV ASDIR [facility] Last Admin: 12/01/18 09:40 Dose: 125 mls/hr Insulin Aspart (Novolog Vial Sliding Scale -) 1 vial SQ ACHS [facility]; Protocol Last Admin: 12/01/18 11:21 Dose: 2 units Mupirocin (Bactroban Ointment (For Decolonization) -) 1 applic NS BID [facility] Stop: 12/03/18 21:59 Last Admin: 12/01/18 09:41 Dose: 1 inch Pantoprazole Sodium (Protonix Iv) 20 mg IVPUSH BID [facility] Last Admin: 12/01/18 09:26 Dose: 20 mg - Objective Vital Signs: Vital Signs Temperature 98.4 F 12/01/18 11:33 Pulse Rate 101 H 12/01/18 12:00 Respiratory Rate 15 12/01/18 12:00 Blood Pressure 126/62 12/01/18 12:00 O2 Sat by Pulse Oximetry (%) 96 12/01/18 08:54 Labs: CBC, BMP 12/01/18 11:36 12/01/18 05:32 INR, PTT INR 1.04 (0.83-1.09) 11/28/18 07:22 Fibrinogen 138.0 mg/dL (238-498) L 11/30/18 08:25 Assessment/Plan Pt is s/p subtotal colectomy for lower GI bleed. Pt's pain is under good control with dilaudid CREW MESS ATTENDANT. No N/V, VSS, no anesthetic issues/complications noted. Will continue CREW MESS ATTENDANT for now.
[2018-12-01 12:27] LABS: INR 1.19 (0.83-1.09); PROTHROMBIN TIME (PATIENT) 14.1 SEC (9.7-13.0)
[2018-12-01] MEDS: CHLORHEXIDINE GLUCONATE 4% CLEANSER FOR DECOLONIZATION TP SCH ×2 (20:27→22:54)
[2018-12-02 05:53] LABS: BASO % 0.1 % (0-2.0); HEMATOCRIT 21.7 % (35.4-49); HEMOGLOBIN 7.4 GM/dL (11.7-16.9); LYMPH % 9.2 % (8-40); MCH 30.1 pg (25.7-33.7); MCHC 34.1 g/dl (32.0-35.9); MEAN CELL VOLUME 88.2 fl (80-96); MEAN PLT VOLUME 7.9 fl (7.5-11.1); MONO % 7.9 % (3.8-10.2); NEUT % 82.8 % (42.8-82.8); PLATELET COUNT 197 K/MM3 (134-434); RBC 2.46 M/mm3 (4.00-5.60); RDW 15.5 % (11.9-15.9); WHITE BLOOD COUNT 16.2 K/mm3 (4.0-10.0)
[2018-12-02] MEDS: HYDROmorphone *PCA* 10MG/50ML DISP.SYRIN PCA SCH (05:55)
[2018-12-02] MEDS: LACTATED RINGERS SOLUTION 1,000 ML/1,000 ML INFUS.BAG IV SCH (06:03)
[2018-12-02] MEDS: INSULIN SLIDING SCALE (NOVOLOG) 1 VIAL SQ SCH ×4 (06:03→21:49)
[2018-12-02] MEDS ORDERED: BENZOCAINE/MENTH/CETYLPYRD CL 1 EACH LOZENGE MM PRN (06:27)
[2018-12-02 06:28] LABS: BLOOD UREA NITROGEN 12.2 mg/dL (7-18); CALCIUM 7.3 mg/dL (8.5-10.1); CREATININE 0.9 mg/dL (0.55-1.3); PHOSPHOROUS 2.2 mg/dL (2.5-4.9)
--- NOTE | 2018-12-02 06:32 | PN ---
Progress Note, Physician Chief Complaint: gib History of Present Illness: 68yo male PMH HTN, HLD, PVD presents with with 3 episodes of BRBPR this morning. He states that he was in his normal state of health yesterday and having no problems. stable overnight since surgery. - Current Medication List Current Medications: Active Medications Acetaminophen (Tylenol -) 650 mg PO Q4H PRN PRN Reason: FEVER Benzocaine/Menthol (Cepacol Lozenge -) 1 each MM PRN PRN PRN Reason: SORE THROAT Chlorhexidine Gluconate (Hibiclens For Decolonization -) 1 applic TP HS [facility] Last Admin: 12/01/18 22:54 Dose: 1 applic Dexamethasone Sodium Phosphate (Decadron Injection -) 4 mg IVPUSH ONCE PRN PRN Reason: NAUSEA AND/OR VOMITING Diphenhydramine HCl (Benadryl Injection -) 12.5 mg IVPUSH ONCE PRN PRN Reason: FOR ITCHING Hydromorphone HCl (Hydromorphone 10 Mg/50 Ml-Ns) 10 mg IT RISK AND ASSURANCE SENIOR MANAGER IT RISK AND ASSURANCE SENIOR MANAGER [facility]; Protocol Stop: 12/07/18 17:21 Last Admin: 12/02/18 05:55 Dose: Not Given Potassium Chloride/Dextrose/Sod Cl (D5-1/2ns+20 Meq Kcl -) 20 meq in 1,000 mls @ 100 mls/hr IV ASDIR [facility] Insulin Aspart (Novolog Vial Sliding Scale -) 1 vial SQ ACHS [facility]; Protocol Last Admin: 12/02/18 06:03 Dose: 2 units Mupirocin (Bactroban Ointment (For Decolonization) -) 1 applic NS BID [facility] Stop: 12/03/18 21:59 Last Admin: 12/01/18 22:53 Dose: 1 inch Pantoprazole Sodium (Protonix Iv) 20 mg IVPUSH BID [facility] Last Admin: 12/01/18 22:54 Dose: 20 mg - Objective Vital Signs: Vital Signs Temperature 98.0 F 12/02/18 06:00 Pulse Rate 106 H 12/02/18 06:00 Respiratory Rate 18 12/02/18 06:00 Blood Pressure 146/69 12/02/18 06:00 O2 Sat by Pulse Oximetry (%) 96 12/01/18 22:00 Vital Signs Period Temp Pulse Resp BP Sys/Gallardo Pulse Ox Last 24 Hr 98 F-98.4 F 91-109 15-22 126-154/53-96 96-96 Intake & Output 12/01/18 12/01/18 12/02/18 15:59 23:59 07:59 Intake Total 100 1500 1384 Output Total 550 400 350 Balance -450 1100 1034 Weight 200 lb 3 oz Intake: IV 1500 1384 LACTATED RINGERS SOLUTION 1500 1384 1,000 ml In 1,000 ml @ 125 mls/hr IV ASDIR [facility] Rx#:[id number] IVPB 100 Output: Gastric Drainage 0 0 Urine 550 400 350 Pretty 550 400 350 Other: Voiding Method Indwelling Catheter Indwelling Catheter Bowel Movement No No No Weight Measurement Method Built in [facility] Constitutional: Yes: Well Nourished, No Distress, Calm Eyes: Yes: Conjunctiva Clear, EOM Intact HENT: Yes: Atraumatic, Normocephalic, Other (NGT scant) Neck: Yes: Supple, Trachea Midline Cardiovascular: Yes: Regular Rate and Rhythm, S1, S2 Respiratory: Yes: Regular, CTA Bilaterally Gastrointestinal: Yes: Soft, Hypoactive Bowel Sounds, Tenderness (incisonal) ...Rectal Exam: Yes: Deferred Genitourinary: No: CVA Tenderness - Left, Menses Present Breast(s): No: Mass, Skin Changes Musculoskeletal: No: Muscle Pain, Muscle Weakness Extremities: No: Cool, Cyanosis Edema: Yes Edema: LUE: 1+, RUE: 1+, LLE: 1+, RLE: 1+ Peripheral Pulses WNL: Yes Peripheral Pulses: Left Radial: 2+, Right Radial: 2+, Left Doralis Pedis: 2+, Right Dorsalis Pedis: 2+, Left Femoral: 2+, Right Femoral: 2+ Integumentary: Yes: Incision. No: Jaundice, Pressure Ulcer, Rash Wound/Incision: Yes: Clean/Dry, Well Approximated, Jane Intact, Open to air Neurological: Yes: Alert, Oriented Psychiatric: Yes: Alert, Oriented Labs: CBC, BMP 12/02/18 05:15 12/02/18 05:15 INR, PTT INR 1.19 (0.83-1.09) H 12/01/18 11:50 Fibrinogen 138.0 mg/dL (238-498) L 11/30/18 08:25 Problem List - Problems (1) GI bleed Assessment/Plan: 68 yo male with MMP presented with LGIB is poorly localized suspected. Discussed all of the non-operative and operative available options with the family (, son, newphew) and patient. POD#2 s/p subtotal colectomy, no obvious continued GI bleeding noted. Patient was noted to be hemodynamically stable overnight with adequate urine output NPO and IVF maintenance NGT decompression - consider D/C D/C pretty trend labs and replace electroytes Physical therapy evaluation OOB to chair encourage IS consider transfer to floor I will be away on 12/03 & 12/04 I am available by phone for questions, Dr. Farmer will be available for emergencies. This patient is critically ill. Time spent reviewing chart, examining patient, talking with providers and/or family and documentation is 35 minutes. Code(s): K92.2 - GASTROINTESTINAL HEMORRHAGE, UNSPECIFIED Qualifiers: GI bleed type/associated pathology: unspecified gastrointestinal hemorrhage type Qualified Code(s): K92.2 - Gastrointestinal hemorrhage, unspecified (2) Diabetes Code(s): E11.9 - TYPE 2 DIABETES MELLITUS WITHOUT COMPLICATIONS Qualifiers: Diabetes mellitus type: type 2 Diabetes mellitus mcc insulin use: with mcc use Diabetes mellitus complication status: with circulatory complication Diabetes mellitus complication detail: with peripheral angiopathy without gangrene Qualified Code(s): E11.51 - Type 2 diabetes mellitus with diabetic peripheral angiopathy without gangrene; Z79.4 - rat exterminator (current) use of insulin (3) HLD (hyperlipidemia) Code(s): E78.5 - HYPERLIPIDEMIA, UNSPECIFIED (4) HTN (hypertension) Code(s): I10 - ESSENTIAL (PRIMARY) HYPERTENSION (5) Hypotension Code(s): I95.9 - HYPOTENSION, UNSPECIFIED (6) Syncope Code(s): R55 - SYNCOPE AND COLLAPSE
[2018-12-02] MEDS: D5-1/2NS+20 MEQ KCL - 20 MEQ/1,000 ML INFUS.BAG IV SCH ×2 (07:33→16:39)
--- NOTE | 2018-12-02 07:45 | PN ---
Physical Exam: SUBJECTIVE: Patient seen and examined, awake, pleasant, reports abdominal pain but better, passing gas. no nausea/vomiting or concerns otherewise. OBJECTIVE: Vital Signs Period Temp Pulse Resp BP Sys/Gallardo Pulse Ox Last 24 Hr 98 F-98.4 F 91-109 15-22 126-154/53-96 96-96 Intake & Output 11/29/18 11/30/18 12/01/18 12/02/18 23:59 23:59 23:59 23:59 Intake Total 3715 09764 2983 1384 Output Total 1400 2700 2450 750 Balance 2315 7605 533 634 Weight 200 lb 198 lb 10.184 oz 204 lb 8 oz 200 lb 3 oz General: lying in bed in no acute distress HEENT: NG tube in place, greenish minimal drainage (since tube placement per discussion with nursing) Chest: CTAB, no rales or wheezing, good effort CVS:S1S2 regular Abdomen: soft, distended, pos bowel sounds appreciated, incisional tenderness, no voluntary or involuntary guarding or rigidity extremities: no edema neuro: AAOx3 Neck: soft, supple, no JVD Laboratory Results - last 24 hr 11/28/18 11/29/18 12/01/18 09:00 17:30 11:17 WBC RBC Hgb Hct MCV MCH MCHC RDW Plt Count MPV Absolute Neuts (auto) Neutrophils % Lymphocytes % Monocytes % Eosinophils % Basophils % Nucleated RBC % PT with INR INR PTT (Actin FS) Sodium Potassium Chloride Carbon Dioxide Anion Gap BUN Creatinine Est GFR (CKD-EPI)AfAm Est GFR (CKD-EPI)NonAf POC Glucometer 204 Random Glucose Calcium Phosphorus Magnesium TB Test (QFT) Nil 0.17 TB Test (QFT) Mitogen >10.00 TB Test (QFT) Antigen 0.31 TB Test (QFT) Negative TB Positive Criteria Blood Type O POSITIVE Antibody Screen Negative Crossmatch See Detail Crossmatch IS Only See Detail 12/01/18 12/01/18 12/01/18 11:36 11:36 11:50 WBC 19.8 H RBC 2.87 L Hgb 8.5 L Hct 25.3 L MCV 88.0 MCH 29.7 MCHC 33.7 RDW 15.3 Plt Count 168 MPV 8.2 Absolute Neuts (auto) Neutrophils % Lymphocytes % Monocytes % Eosinophils % Basophils % Nucleated RBC % PT with INR 14.10 H INR 1.19 H PTT (Actin FS) 31.4 Sodium Potassium Chloride Carbon Dioxide Anion Gap BUN Creatinine Est GFR (CKD-EPI)AfAm Est GFR (CKD-EPI)NonAf POC Glucometer Random Glucose Calcium Phosphorus Magnesium TB Test (QFT) Nil TB Test (QFT) Mitogen TB Test (QFT) Antigen TB Test (QFT) TB Positive Criteria Blood Type Antibody Screen Crossmatch Crossmatch IS Only 12/01/18 12/01/18 12/02/18 17:04 21:26 05:15 WBC 16.2 H RBC 2.46 L Hgb 7.4 L Hct 21.7 L MCV 88.2 MCH 30.1 MCHC 34.1 RDW 15.5 Plt Count 197 MPV 7.9 Absolute Neuts (auto) 13.5 H Neutrophils % 82.8 Lymphocytes % 9.2 Monocytes % 7.9 D Eosinophils % 0.0 Basophils % 0.1 Nucleated RBC % 0 PT with INR INR PTT (Actin FS) Sodium Potassium Chloride Carbon Dioxide Anion Gap BUN Creatinine Est GFR (CKD-EPI)AfAm Est GFR (CKD-EPI)NonAf POC Glucometer 206 198 Random Glucose Calcium Phosphorus Magnesium TB Test (QFT) Nil TB Test (QFT) Mitogen TB Test (QFT) Antigen TB Test (QFT) TB Positive Criteria Blood Type Antibody Screen Crossmatch Crossmatch IS Only 12/02/18 12/02/18 05:15 05:18 WBC RBC Hgb Hct MCV MCH MCHC RDW Plt Count MPV Absolute Neuts (auto) Neutrophils % Lymphocytes % Monocytes % Eosinophils % Basophils % Nucleated RBC % PT with INR INR PTT (Actin FS) Sodium 146 H Potassium 4.0 Chloride 117 H Carbon Dioxide 23 Anion Gap 6 L BUN 12.2 Creatinine 0.9 Est GFR (CKD-EPI)AfAm 99.94 Est GFR (CKD-EPI)NonAf 86.23 POC Glucometer 207 Random Glucose 211 H Calcium 7.3 L Phosphorus 2.2 L Magnesium 2.0 TB Test (QFT) Nil TB Test (QFT) Mitogen TB Test (QFT) Antigen TB Test (QFT) TB Positive Criteria Blood Type Antibody Screen Crossmatch Crossmatch IS Only Active Medications Home Medications Medication Instructions Recorded Aspirin [Baby Aspirin] 81 mg PO DAILY 10/15/13 Insulin Glargine,Hum.rec.anlog 100 unit SQ HS cartridge 05/07/14 [Lantus] Metformin HCl 1,000 mg PO BID #60 tablet 10/15/13 Simvastatin [Zocor] 20 mg PO DAILY tablet 10/15/13 Active Medications Acetaminophen (Tylenol -) 650 mg PO Q4H PRN PRN Reason: FEVER Benzocaine/Menthol (Cepacol Lozenge -) 1 each MM PRN PRN PRN Reason: SORE THROAT Chlorhexidine Gluconate (Hibiclens For Decolonization -) 1 applic TP HS [facility] Last Admin: 12/01/18 22:54 Dose: 1 applic Dexamethasone Sodium Phosphate (Decadron Injection -) 4 mg IVPUSH ONCE PRN PRN Reason: NAUSEA AND/OR VOMITING Diphenhydramine HCl (Benadryl Injection -) 12.5 mg IVPUSH ONCE PRN PRN Reason: FOR ITCHING Hydromorphone HCl (Hydromorphone 10 Mg/50 Ml-Ns) 10 mg INSTRUCTIONAL SYSTEMS SPECIALIST INSTRUCTIONAL SYSTEMS SPECIALIST [facility]; Protocol Stop: 12/07/18 17:21 Last Admin: 12/02/18 05:55 Dose: Not Given Potassium Chloride/Dextrose/Sod Cl (D5-1/2ns+20 Meq Kcl -) 20 meq in 1,000 mls @ 100 mls/hr IV ASDIR [facility] Last Admin: 12/02/18 07:33 Dose: 100 mls/hr Potassium Phosphate 20 mm/ (Dextrose) 256.6667 mls @ 62.5 mls/hr IVPB ONCE ONE Stop: 12/02/18 11:32 Insulin Aspart (Novolog Vial Sliding Scale -) 1 vial SQ ACHS [facility]; Protocol Last Admin: 12/02/18 06:03 Dose: 2 units Mupirocin (Bactroban Ointment (For Decolonization) -) 1 applic NS BID [facility] Stop: 12/03/18 21:59 Last Admin: 12/01/18 22:53 Dose: 1 inch Pantoprazole Sodium (Protonix Iv) 20 mg IVPUSH BID [facility] Last Admin: 12/01/18 22:54 Dose: 20 mg Laboratory Results - last 24 hr 11/28/18 11/29/18 12/01/18 09:00 17:30 11:17 WBC RBC Hgb Hct MCV MCH MCHC RDW Plt Count MPV Absolute Neuts (auto) Neutrophils % Lymphocytes % Monocytes % Eosinophils % Basophils % Nucleated RBC % PT with INR INR PTT (Actin FS) Sodium Potassium Chloride Carbon Dioxide Anion Gap BUN Creatinine Est GFR (CKD-EPI)AfAm Est GFR (CKD-EPI)NonAf POC Glucometer 204 Random Glucose Calcium Phosphorus Magnesium TB Test (QFT) Nil 0.17 TB Test (QFT) Mitogen >10.00 TB Test (QFT) Antigen 0.31 TB Test (QFT) Negative TB Positive Criteria Blood Type O POSITIVE Antibody Screen Negative Crossmatch See Detail Crossmatch IS Only See Detail 12/01/18 12/01/18 12/01/18 11:36 11:36 11:50 WBC 19.8 H RBC 2.87 L Hgb 8.5 L Hct 25.3 L MCV 88.0 MCH 29.7 MCHC 33.7 RDW 15.3 Plt Count 168 MPV 8.2 Absolute Neuts (auto) Neutrophils % Lymphocytes % Monocytes % Eosinophils % Basophils % Nucleated RBC % PT with INR 14.10 H INR 1.19 H PTT (Actin FS) 31.4 Sodium Potassium Chloride Carbon Dioxide Anion Gap BUN Creatinine Est GFR (CKD-EPI)AfAm Est GFR (CKD-EPI)NonAf POC Glucometer Random Glucose Calcium Phosphorus Magnesium TB Test (QFT) Nil TB Test (QFT) Mitogen TB Test (QFT) Antigen TB Test (QFT) TB Positive Criteria Blood Type Antibody Screen Crossmatch Crossmatch IS Only 12/01/18 12/01/18 12/02/18 17:04 21:26 05:15 WBC 16.2 H RBC 2.46 L Hgb 7.4 L Hct 21.7 L MCV 88.2 MCH 30.1 MCHC 34.1 RDW 15.5 Plt Count 197 MPV 7.9 Absolute Neuts (auto) 13.5 H Neutrophils % 82.8 Lymphocytes % 9.2 Monocytes % 7.9 D Eosinophils % 0.0 Basophils % 0.1 Nucleated RBC % 0 PT with INR INR PTT (Actin FS) Sodium Potassium Chloride Carbon Dioxide Anion Gap BUN Creatinine Est GFR (CKD-EPI)AfAm Est GFR (CKD-EPI)NonAf POC Glucometer 206 198 Random Glucose Calcium Phosphorus Magnesium TB Test (QFT) Nil TB Test (QFT) Mitogen TB Test (QFT) Antigen TB Test (QFT) TB Positive Criteria Blood Type Antibody Screen Crossmatch Crossmatch IS Only 12/02/18 12/02/18 05:15 05:18 WBC RBC Hgb Hct MCV MCH MCHC RDW Plt Count MPV Absolute Neuts (auto) Neutrophils % Lymphocytes % Monocytes % Eosinophils % Basophils % Nucleated RBC % PT with INR INR PTT (Actin FS) Sodium 146 H Potassium 4.0 Chloride 117 H Carbon Dioxide 23 Anion Gap 6 L BUN 12.2 Creatinine 0.9 Est GFR (CKD-EPI)AfAm 99.94 Est GFR (CKD-EPI)NonAf 86.23 POC Glucometer 207 Random Glucose 211 H Calcium 7.3 L Phosphorus 2.2 L Magnesium 2.0 TB Test (QFT) Nil TB Test (QFT) Mitogen TB Test (QFT) Antigen TB Test (QFT) TB Positive Criteria Blood Type Antibody Screen Crossmatch Crossmatch IS Only egd/Colonosocpy results reviewed ASSESSMENT/PLAN: 68 yom with PMHx of HTN, HLD, IDDM, PVD s/p toe amputation admitted with multiple episodes of BRBPR and syncope -Acute lower GI bleed, suspect diverticular vs ulcerative disease terminal ileum /ileocecal valve (as visible on colonoscopy, r/o IBD) -Acute blood loss anemia -Syncope, from above -Hypophosphatemia -HTN -HLD -IDDM -PVD s/p toes amputation Plan: Hb trending down, black tarry stool today. Monitor H/h closely, transfuse for Hb < 8. Surgery input noted. NG tube/PO per surgery. NPO for now. Pain control, dilaudid INSTRUCTIONAL SYSTEMS SPECIALIST, minimal use, d/c when taking PO. Gi input noted, EGD neg for bleed Colonoscopy with moderate diverticulosis Hepatic flexure/bowel, also oozing ulcer/small vessel at ileocecal valve s/p epi/cautery and multiple ulcers terminal ileum. Follow up biopsy results. CTA Abdomen/pelvis neg for bleed s/p subtotal colectomy 11/30 ISS, replete Phos Resume anti-hypertensives based on hemodynamics and po intake DVTPPX SCDs Continue ICU level of care. Plan discussed with SORT SUPERVISOR. total critical care time spent 38 min. Visit type - Emergency Visit Emergency Visit: Yes ED Registration Date: 11/28/18 Care time: The patient presented to the Emergency Department on the above date and was hospitalized for further evaluation of their emergent condition. - New Patient This patient is new to me today: Yes Date on this admission: 12/02/18 - Critical Care Critical Care patient: Yes Total Critical Care Time (in minutes): 38 Critical Care Statement: The care of this patient involved high complexity decision making to prevent further life threatening deterioration of the patient 's condition and/or to evaluate & treat vital organ system(s) failure or risk of failure.
--- NOTE | 2018-12-02 07:59 | PN ---
Physical Exam: SUBJECTIVE: Patient seen and examined at bedside this morning. He is POD #2 s/p subtotal colectomy. No further GI bleeding noted overnight. Patient endorses slight pain over surgical site. he denies subjective fevers, chills, shortness of breath, chest pain, palpitations, abdominal pain, nausea, vomiting. Approx 11AM noted that patient has passed large dark red blood per rectum. OBJECTIVE: Vital Signs Period Temp Pulse Resp BP Sys/Gallardo Pulse Ox Last 24 Hr 98 F-98.4 F 91-109 15-22 126-154/53-96 96-96 GENERAL: The patient is awake, alert, and fully oriented, in no acute distress. HEAD: Normocephalic, atraumatic. EYES: PERRL, extraocular movements intact, sclera anicteric, conjunctiva clear. ENT: Oropharynx clear, without erythema or exudates. Moist mucous membranes. NECK: Supple without lymphadenopathy. Left EJ IV in place. LUNGS: Breath sounds equal, clear to auscultation bilaterally. No wheezes, no crackles. No accessory muscle use. HEART: Regular rate and rhythm, S1, S2 without murmur, rub or gallop. ABDOMEN: Soft, nondistended, tender to palpation over surgical site. No rebound tenderness, no guarding. Normoactive bowel sounds x4 quadrants. no hepatosplenomegaly palpated or percussed. EXTREMITIES: 2+ radial, 1+ dorsalis pedis pulses bilaterally. Warm, well- perfused. No lower extremity edema bilaterally. 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 NEUROLOGICAL: Cranial nerves II through XII grossly intact. Normal speech. No gross focal deficits. PSYCH: Normal mood, normal affect upon my encounter. SKIN: Warm, dry. Vertical abdominal surgical scar, stapled clean, dry, intact. Laboratory Results - last 24 hr 11/28/18 11/29/18 12/01/18 09:00 17:30 11:17 WBC RBC Hgb Hct MCV MCH MCHC RDW Plt Count MPV Absolute Neuts (auto) Neutrophils % Lymphocytes % Monocytes % Eosinophils % Basophils % Nucleated RBC % PT with INR INR PTT (Actin FS) Sodium Potassium Chloride Carbon Dioxide Anion Gap BUN Creatinine Est GFR (CKD-EPI)AfAm Est GFR (CKD-EPI)NonAf POC Glucometer 204 Random Glucose Calcium Phosphorus Magnesium TB Test (QFT) Nil 0.17 TB Test (QFT) Mitogen >10.00 TB Test (QFT) Antigen 0.31 TB Test (QFT) Negative TB Positive Criteria Blood Type O POSITIVE Antibody Screen Negative Crossmatch See Detail Crossmatch IS Only See Detail 12/01/18 12/01/18 12/01/18 11:36 11:36 11:50 WBC 19.8 H RBC 2.87 L Hgb 8.5 L Hct 25.3 L MCV 88.0 MCH 29.7 MCHC 33.7 RDW 15.3 Plt Count 168 MPV 8.2 Absolute Neuts (auto) Neutrophils % Lymphocytes % Monocytes % Eosinophils % Basophils % Nucleated RBC % PT with INR 14.10 H INR 1.19 H PTT (Actin FS) 31.4 Sodium Potassium Chloride Carbon Dioxide Anion Gap BUN Creatinine Est GFR (CKD-EPI)AfAm Est GFR (CKD-EPI)NonAf POC Glucometer Random Glucose Calcium Phosphorus Magnesium TB Test (QFT) Nil TB Test (QFT) Mitogen TB Test (QFT) Antigen TB Test (QFT) TB Positive Criteria Blood Type Antibody Screen Crossmatch Crossmatch IS Only 12/01/18 12/01/18 12/02/18 17:04 21:26 05:15 WBC 16.2 H RBC 2.46 L Hgb 7.4 L Hct 21.7 L MCV 88.2 MCH 30.1 MCHC 34.1 RDW 15.5 Plt Count 197 MPV 7.9 Absolute Neuts (auto) 13.5 H Neutrophils % 82.8 Lymphocytes % 9.2 Monocytes % 7.9 D Eosinophils % 0.0 Basophils % 0.1 Nucleated RBC % 0 PT with INR INR PTT (Actin FS) Sodium Potassium Chloride Carbon Dioxide Anion Gap BUN Creatinine Est GFR (CKD-EPI)AfAm Est GFR (CKD-EPI)NonAf POC Glucometer 206 198 Random Glucose Calcium Phosphorus Magnesium TB Test (QFT) Nil TB Test (QFT) Mitogen TB Test (QFT) Antigen TB Test (QFT) TB Positive Criteria Blood Type Antibody Screen Crossmatch Crossmatch IS Only 12/02/18 12/02/18 05:15 05:18 WBC RBC Hgb Hct MCV MCH MCHC RDW Plt Count MPV Absolute Neuts (auto) Neutrophils % Lymphocytes % Monocytes % Eosinophils % Basophils % Nucleated RBC % PT with INR INR PTT (Actin FS) Sodium 146 H Potassium 4.0 Chloride 117 H Carbon Dioxide 23 Anion Gap 6 L BUN 12.2 Creatinine 0.9 Est GFR (CKD-EPI)AfAm 99.94 Est GFR (CKD-EPI)NonAf 86.23 POC Glucometer 207 Random Glucose 211 H Calcium 7.3 L Phosphorus 2.2 L Magnesium 2.0 TB Test (QFT) Nil TB Test (QFT) Mitogen TB Test (QFT) Antigen TB Test (QFT) TB Positive Criteria Blood Type Antibody Screen Crossmatch Crossmatch IS Only Active Medications Generic Name Dose Route Start Last Admin Trade Name Freq PRN Reason Stop Dose Admin Acetaminophen 650 mg 11/30/18 18:38 Tylenol - PO Q4H PRN FEVER Benzocaine/Menthol 1 each 12/02/18 06:27 Cepacol Lozenge - MM PRN PRN SORE THROAT Chlorhexidine Gluconate 1 applic 11/30/18 22:00 12/01/18 22:54 Hibiclens For Decolonization - TP 1 applic HS [facility] Administration Dexamethasone Sodium Phosphate 4 mg 11/30/18 18:38 Decadron Injection - IVPUSH ONCE PRN NAUSEA AND/OR VOMITING Diphenhydramine HCl 12.5 mg 11/30/18 18:38 Benadryl Injection - IVPUSH ONCE PRN FOR ITCHING Hydromorphone HCl 10 mg 11/30/18 18:38 12/02/18 05:55 Hydromorphone 10 Mg/50 Ml-Ns IN FLIGHT TECHNICIAN 12/07/18 17:21 Not Given IN FLIGHT TECHNICIAN [facility] Protocol Potassium Chloride/Dextrose/Sod Cl 20 meq in 1,000 mls @ 100 mls/hr 12/02/18 06:30 12/02/18 07:33 D5-1/2ns+20 Meq Kcl - IV 100 mls/hr ASDIR [facility] Administration Potassium Phosphate 20 mm/ 256.6667 mls @ 62.5 mls/hr 12/02/18 07:26 Dextrose IVPB 12/02/18 11:32 ONCE ONE Insulin Aspart 1 vial 11/30/18 22:00 12/02/18 06:03 Novolog Vial Sliding Scale - SQ 2 units ACHS [facility] Administration Protocol Mupirocin 1 applic 11/30/18 22:00 12/01/18 22:53 Bactroban Ointment (For Decolonization) - NS 12/03/18 21:59 1 inch BID [facility] Administration Pantoprazole Sodium 20 mg 11/30/18 22:30 12/01/18 22:54 Protonix Iv IVPUSH 20 mg BID [facility] Administration ASSESSMENT/PLAN: Patient is a 68 year old male with history of hypertension, hyperlipidemia, insulin dependent diabetes mellitus type II, peripheral vascular disease, presents with complaint of bright red blood per rectum. Admitted to ICU for tenuous blood pressures. Neurological Syncopal episode -Patient is currently awake, alert, communicative, oriented. -Syncopal episode likely secondary to vasovagal syncope. -CT head negative for acute intracranial pathology -Fall precautions Pulmonary -Patient is currently saturating well on room air -Maintain oxygen saturation greater than 90% Cardiac History of hypertension History of hyperlipidemia -Holding home antihypertensives given tenuous blood pressure -Holding home Aspirin due to bleeding -Cardiac Monitoring Gastrointenstinal -Patient is s/p colonscopy, and sub-total colectomy. -Hydromorphone IN FLIGHT TECHNICIAN for pain. Currently, well controlled. -CTA negative for acute bleeding x2 -Rectal exam reveals no carl red blood this morning. -GI consult (Dr. Damian) appreciated. -General surgery recommendations (Dr. Naranjo) appreciated. Endocrine History of Diabetes Mellitus -Insulin sliding scale ACHS -Fingerstick blood glucose monitoring ACHS Hematologic Acute blood loss anemia secondary to GI bleeding -Currently Hb/ Hct 7.4/ 21.7; likely component of requilibration. Will repeat this afternoon. -Monitor serial Hb/ Hct. Normal transfusion thresholds. FEN -IV D5 1/2 NS + 20meq KCL at 100mL/ hour -Hypophosphatemia, repleted. Follow CMP, replete as necessary -NPO, except for ice chips Prophylaxis -Withholding chemical anticoagulation due to GI bleeding -SCDs bilateral lower extremities. -Protonix 20mg IV BID Disposition: We will continue to follow the patient. Thank you for this consultative opportunity. Visit type - Emergency Visit Emergency Visit: Yes ED Registration Date: 11/28/18 Care time: The patient presented to the Emergency Department on the above date and was hospitalized for further evaluation of their emergent condition. - New Patient This patient is new to me today: No - Critical Care Critical Care patient: Yes Total Critical Care Time (in minutes): 35 Critical Care Statement: The care of this patient involved high complexity decision making to prevent further life threatening deterioration of the patient 's condition and/or to evaluate & treat vital organ system(s) failure or risk of failure. - Discharge Referral Referred to [facility] Med [facility].: No
[2018-12-02] MEDS ORDERED: POTASSIUM PHOSPHATE 20 MM in DEXTROSE 5%-WATER - 250 ML IVPB ONE (08:00)
--- NOTE | 2018-12-02 10:01 | PN ---
Progress Note (short form) - Note Progress Note: Anesthesia Pain Rounds Comfortable on ASSEMBLIES AND INSTALLATIONS INSPECTOR A/P Continue for today. Krista Espinosa MD
[2018-12-02] MEDS: PANTOPRAZOLE SODIUM 40 MG VIAL IVPUSH SCH ×2 (10:30→21:49)
--- NOTE | 2018-12-02 11:40 | PN ---
Teaching Attending Note Name of Resident: Tanmay Henderson ATTENDING PHYSICIAN STATEMENT I saw and evaluated the patient. I reviewed the resident's note and discussed the case with the resident. I agree with the resident's findings and plan as documented. SUBJECTIVE: Pt seen and examined in the ICU. Continues to pass dark blood. Pain currently controlled with BLINDSTITCH LAPEL PADDER pump. Denies shortness of breath or chest pain. OBJECTIVE: Vital Signs Period Temp Pulse Resp BP Sys/Gallardo Pulse Ox Last 24 Hr 98 F-98.2 F 91-109 15- 126-155/53-76 96-100 Intake & Output 11/29/18 11/30/18 12/01/18 12/02/18 23:59 23:59 23:59 23:59 Intake Total 3715 89789 2983 1384 Output Total 1400 2700 2450 750 Balance 2315 7605 533 634 Weight 90.718 kg 90.1 kg 92.76 kg 90.804 kg Gen: NAD at rest Heart: RRR Lung: decreased breath sounds at the bases Abd: soft, incision clean Ext: no edema CBC, BMP 12/02/18 05:15 12/02/18 05:15 Active Medications Acetaminophen (Tylenol -) 650 mg PO Q4H PRN PRN Reason: FEVER Benzocaine/Menthol (Cepacol Lozenge -) 1 each MM PRN PRN PRN Reason: SORE THROAT Last Admin: 12/02/18 08:32 Dose: 1 each Chlorhexidine Gluconate (Hibiclens For Decolonization -) 1 applic TP HS TAVO Last Admin: 12/01/18 22:54 Dose: 1 applic Dexamethasone Sodium Phosphate (Decadron Injection -) 4 mg IVPUSH ONCE PRN PRN Reason: NAUSEA AND/OR VOMITING Diphenhydramine HCl (Benadryl Injection -) 12.5 mg IVPUSH ONCE PRN PRN Reason: FOR ITCHING Hydromorphone HCl (Hydromorphone 10 Mg/50 Ml-Ns) 10 mg BLINDSTITCH LAPEL PADDER BLINDSTITCH LAPEL PADDER TAVO; Protocol Stop: 12/07/18 17:21 Last Admin: 12/02/18 05:55 Dose: Not Given Potassium Chloride/Dextrose/Sod Cl (D5-1/2ns+20 Meq Kcl -) 20 meq in 1,000 mls @ 100 mls/hr IV ASDIR TAVO Last Admin: 12/02/18 07:33 Dose: 100 mls/hr Potassium Phosphate 20 mm/ (Dextrose) 256.6667 mls @ 62.5 mls/hr IVPB ONCE ONE Stop: 12/02/18 12:06 Insulin Aspart (Novolog Vial Sliding Scale -) 1 vial SQ ACHS [facility]; Protocol Last Admin: 12/02/18 06:03 Dose: 2 units Mupirocin (Bactroban Ointment (For Decolonization) -) 1 applic NS BID [facility] Stop: 12/03/18 21:59 Last Admin: 12/01/18 22:53 Dose: 1 inch Pantoprazole Sodium (Protonix Iv) 20 mg IVPUSH BID [facility] Last Admin: 12/02/18 10:30 Dose: 20 mg ASSESSMENT AND PLAN: GI Bleed Acute Blood Loss Anemia s/p ex-lap/subtotal colectomy HTN DM Hyperlipidemia PAD - monitor H/H - transfuse as needed - pain control - incentive spirometry - IVF - monitor urine output, creatinine - DVT/GI prophylaxis - continue ICU monitoring
[2018-12-02 12:29] LABS: HEMATOCRIT 22.8 % (35.4-49); HEMOGLOBIN 7.8 GM/dL (11.7-16.9); MCH 30.2 pg (25.7-33.7); MCHC 34.1 g/dl (32.0-35.9); MEAN CELL VOLUME 88.5 fl (80-96); MEAN PLT VOLUME 7.9 fl (7.5-11.1); PLATELET COUNT 220 K/MM3 (134-434); RBC 2.57 M/mm3 (4.00-5.60); RDW 15.4 % (11.9-15.9); WHITE BLOOD COUNT 16.2 K/mm3 (4.0-10.0)
--- NOTE | 2018-12-02 14:09 | PN ---
Progress Note (short form) - Note Progress Note: GI follow up Weekend events noted Patient passed one dark bm this am Vital Signs Temp 98 F 12/02/18 10:00 Pulse 100 H 12/02/18 11:59 Resp 16 12/02/18 11:59 BP 140/64 12/02/18 11:59 Pulse Ox 100 12/02/18 08:[address] Abdomen with cydney, appropriately tender and tympanic CBC, BMP 12/02/18 12:06 12/02/18 05:15 Impression: Lower GI bleeding, now s/p subtotal colectomy and distal ilectomy. Await pathology from colonoscopy and surgical specimen Trend H/H Monitor bm
[2018-12-02] MEDS: MUPIROCIN 2% TOPICAL OINTMENT FOR DECOLONIZATION NS SCH ×2 (14:19→21:48)
--- NOTE | 2018-12-02 21:35 | OP ---
DATE OF OPERATION: 11/30/2018 PREOPERATIVE DIAGNOSIS: Lower gastrointestinal bleed, poorly localized. POSTOPERATIVE DIAGNOSIS: Lower gastrointestinal bleed, poorly localized. PROCEDURE: Exploratory laparotomy, subtotal colectomy, primary anastomosis at the ileosigmoid. ATTENDING SURGEON: Meet Naranjo MD FURNITURE UPHOLSTERER: Marcus Farmer MD ANESTHESIOLOGIST: MARCELINO Campbell ANESTHESIA TYPE: General. ESTIMATED BLOOD LOSS: 100 mL. DRAIN OUTPUT: Lamb, 375 mL clear urine. DRAINS REMAINING IN PATIENT POSTOPERATIVELY: NG tube and Lamb catheter. Patient was transfused 3 units of blood products, 2 units RBCs, 1 unit of donor platelets. INTRAVENOUS FLUID REPLACED: Crystalloid 3500 mL. SPECIMEN: Terminal ileum and subtotal colon, cecum, ascending, transverse, omentum, and descending portion of the sigmoid colon, as well as the anastomosis at the staple line. BRIEF FINDINGS: Patient had clots that were visible and palpable in the cecum and ascending colon. No other obvious bleeding sources were identified. Specimen was sent en bloc. INDICATION: Patient is a 68-year-old male presenting with a lower GI bleed. He was assessed by GI and noted to have some ulcerations in the mucosa of the terminal ileum at the ileocecal valve and the cecum. They were not actively bleeding at the time, but the patient had a precipitous drop in his hemoglobin and hematocrit with some hemodynamic instability the morning we were called. He was counseled regarding risks, benefits, and alternatives to surgical subtotal colectomy if we were unable to localize the bleeding source. He was counseled regarding risks, benefits, and alternatives; signed informed consent; was taken for the procedure. DESCRIPTION OF PROCEDURE: Patient was brought to the operating room, placed in supine position on the operating table. Lower extremities had SCDs placed to compression. Patient was induced with general anesthesia, endotracheally intubated. He received intravenous antibiotics in the form of 2 g of Mefoxin prior to the start of surgery. A formal timeout was completed, identifying the operative site and procedure, with all parties in agreement. The anterior abdominal wall was shaved, prepped, and draped in standard surgical fashion. At which point, we began first with a midline laparotomy incision. It was incised with a 10-blade scalpel, deepened and widened through subcutaneous tissue. Care was taken to dissect down to the midline raphe of the rectus abdominis muscles with Bovie cautery. The abdomen was entered just above the umbilicus bluntly, and then, the fingers were used to protect the intraabdominal viscera. There appeared to be some distended loops of small bowel. The patient was eviscerated of small bowel. We ran the length of the small bowel from the ligament of Treitz to the ileocecal valve. On approaching the ileocecal valve, we noted some clots that were apparent and palpable. We identified the cecum in the right lower quadrant, and the appendix appeared normal. Liver and gallbladder also appeared normal. The ascending colon did appear to have some clots. There was no obvious vascular malformation. We began first with transection of approximately 30 cm of terminal ileum. At which point, we traced this back using the LigaSure device to the cecum and began to open the white line of Toldt along the cecum and ascending colon. We carried our dissection down and around through the hepatic flexure, onto the transverse colon. We identified large vascular pedicles of the right colic artery and double tied them with 0 silk, proceeded around to the middle colic artery, and double tied it with 0 silk as well. The remainder of the mesentery was taken with the LigaSure device. Upon approaching the splenic flexure and Anni point, no additional clots were noted. We continued our dissection down to the descending colon, opening the white line of Toldt, and medializing the mesentery of the descending colon towards the midline. We then selected a portion of the sigmoid colon which also appeared normal on the serosa and made a second transection point using a PEPE stapler as we had with the first, a 60-mm purple load. With that second transection, the colon specimen was taken en bloc after identifying the left colic, descending, and sigmoidal branches, and they were also double tied in standard fashion. The specimen was passed off of the field for final pathologic diagnosis and examination. The abdomen was irrigated with 2 L of sterile irrigation fluid. The surgical hemostasis was clear. We attempted to guide the NG tube into the stomach. The stomach was inspected, appeared to have no obvious bleeding sources and no serosal defects. Liver, gallbladder also normal in appearance. Spleen, which was identified in the takedown of the splenic flexure, also appeared grossly normal. The remnant of the sigmoid was then anastomosed using a stapled anastomosis. Care was taken to protect the field, and then, enterotomies were made. PEPE 60 mm with a purple-load staple was introduced into both bowel lumens, and a common lumen was created. A TA 60-mm staple was then used to close the remaining enterocolotomy. We then proceeded with oriental orthodox of the bowel into normal anatomic position. The abdomen was again sterilely irrigated. Surgical hemostasis was observed. All counts were correct, and we began a closure of the abdomen. The abdomen was closed from the superior and inferior poles using loop PDS towards the midline and then tied just above the umbilicus. The knot was buried. The skin was stapled. The patient had sterile dressings placed after the skin was clean. The patient was awoken from general anesthesia, having tolerated the procedure well. MD EVAN Key/[id number]
[2018-12-02] MEDS: CHLORHEXIDINE GLUCONATE 4% CLEANSER FOR DECOLONIZATION TP SCH (21:48)
[2018-12-03] MEDS: HYDROmorphone *PCA* 10MG/50ML DISP.SYRIN PCA SCH (05:40)
[2018-12-03] MEDS: D5-1/2NS+20 MEQ KCL - 20 MEQ/1,000 ML INFUS.BAG IV SCH ×3 (05:45→21:37)
[2018-12-03 06:05] LABS: HEMATOCRIT 24.9 % (35.4-49); HEMOGLOBIN 8.3 GM/dL (11.7-16.9); MCHC 33.3 g/dl (32.0-35.9); MEAN CELL VOLUME 90.1 fl (80-96); MEAN PLT VOLUME 7.9 fl (7.5-11.1); PLATELET COUNT 260 K/MM3 (134-434); RBC 2.76 M/mm3 (4.00-5.60); RDW 15.5 % (11.9-15.9); WHITE BLOOD COUNT 15.9 K/mm3 (4.0-10.0)
[2018-12-03] MEDS: INSULIN SLIDING SCALE (NOVOLOG) 1 VIAL SQ SCH ×4 (06:06→22:23)
[2018-12-03 06:39] LABS: ALBUMIN 1.8 g/dl (3.4-5.0); BILIRUBIN,TOTAL 0.6 mg/dL (0.2-1); BLOOD UREA NITROGEN 9.8 mg/dL (7-18); CALCIUM 7.8 mg/dL (8.5-10.1); CREATININE 0.8 mg/dL (0.55-1.3); POTASSIUM 4.1 mmol/L (3.5-5.1); TOT PROT 4.3 g/dl (6.4-8.2)
--- NOTE | 2018-12-03 07:22 | PN ---
Physical Exam: SUBJECTIVE: Patient seen and examined at bedside this morning. No acute overnight events. Patient endorses one mucoid- green bowel movement overnight; no bleeding noted. Patient denies subjective fevers, chills, shortness of breath , chest pain, palpitations, abdominal pain, nausea, vomiting. OBJECTIVE: Vital Signs Period Temp Pulse Resp BP Sys/Gallardo Pulse Ox Last 24 Hr 97.8 F-98.6 F 94-108 15-18 128-155/56-87 100-100 GENERAL: The patient is awake, alert, and fully oriented, in no acute distress. HEAD: Normocephalic, atraumatic. EYES: PERRL, extraocular movements intact, sclera anicteric, conjunctiva clear. ENT: Oropharynx clear, without erythema or exudates. Moist mucous membranes. NECK: Supple without lymphadenopathy. Left EJ IV in place. LUNGS: Breath sounds equal, clear to auscultation bilaterally. No wheezes, no crackles. No accessory muscle use. HEART: Regular rate and rhythm, S1, S2 without murmur, rub or gallop. ABDOMEN: Soft, nondistended, tender to palpation over surgical site. No rebound tenderness, no guarding. Normoactive bowel sounds x4 quadrants. no hepatosplenomegaly palpated or percussed. EXTREMITIES: 2+ radial, 1+ dorsalis pedis pulses bilaterally. Warm, well- perfused. No lower extremity edema bilaterally. 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 NEUROLOGICAL: Cranial nerves II through XII grossly intact. Normal speech. No gross focal deficits. PSYCH: Normal mood, normal affect upon my encounter. SKIN: Warm, dry. Vertical abdominal surgical scar, stapled clean, dry, intact. Laboratory Results - last 24 hr 11/28/18 12/02/18 12/02/18 09:00 11:43 12:06 WBC 16.2 H RBC 2.57 L Hgb 7.8 L Hct 22.8 L MCV 88.5 MCH 30.2 MCHC 34.1 RDW 15.4 Plt Count 220 MPV 7.9 Sodium Potassium Chloride Carbon Dioxide Anion Gap BUN Creatinine Est GFR (CKD-EPI)AfAm Est GFR (CKD-EPI)NonAf POC Glucometer 197 Random Glucose Calcium Phosphorus Magnesium Total Bilirubin AST ALT Alkaline Phosphatase Total Protein Albumin Blood Type O POSITIVE Antibody Screen Negative Crossmatch See Detail Crossmatch IS Only See Detail 12/02/18 12/02/18 12/03/18 16:30 21:46 05:15 WBC 15.9 H RBC 2.76 L Hgb 8.3 L Hct 24.9 L MCV 90.1 MCH 30.0 MCHC 33.3 RDW 15.5 Plt Count 260 MPV 7.9 Sodium Potassium Chloride Carbon Dioxide Anion Gap BUN Creatinine Est GFR (CKD-EPI)AfAm Est GFR (CKD-EPI)NonAf POC Glucometer 178 244 Random Glucose Calcium Phosphorus Magnesium Total Bilirubin AST ALT Alkaline Phosphatase Total Protein Albumin Blood Type Antibody Screen Crossmatch Crossmatch IS Only 12/03/18 12/03/18 05:15 05:16 WBC RBC Hgb Hct MCV MCH MCHC RDW Plt Count MPV Sodium 142 Potassium 4.1 Chloride 111 H Carbon Dioxide 24 Anion Gap 7 L BUN 9.8 Creatinine 0.8 Est GFR (CKD-EPI)AfAm 104.90 Est GFR (CKD-EPI)NonAf 90.51 POC Glucometer 270 Random Glucose 287 H Calcium 7.8 L Phosphorus 3.0 Magnesium 2.0 Total Bilirubin 0.6 AST 12 L ALT 12 L Alkaline Phosphatase 48 Total Protein 4.3 L Albumin 1.8 L Blood Type Antibody Screen Crossmatch Crossmatch IS Only Active Medications Generic Name Dose Route Start Last Admin Trade Name Freq PRN Reason Stop Dose Admin Acetaminophen 650 mg 11/30/18 18:38 Tylenol - PO Q4H PRN FEVER Benzocaine/Menthol 1 each 12/02/18 06:27 12/02/18 08:32 Cepacol Lozenge - MM 1 each PRN PRN Administration SORE THROAT Chlorhexidine Gluconate 1 applic 11/30/18 22:00 12/02/18 21:48 Hibiclens For Decolonization - TP 1 applic HS TAVO Administration Dexamethasone Sodium Phosphate 4 mg 11/30/18 18:38 Decadron Injection - IVPUSH ONCE PRN NAUSEA AND/OR VOMITING Diphenhydramine HCl 12.5 mg 11/30/18 18:38 Benadryl Injection - IVPUSH ONCE PRN FOR ITCHING Hydromorphone HCl 10 mg 11/30/18 18:38 12/03/18 05:40 Hydromorphone 10 Mg/50 Ml-Ns [employer] 12/07/18 17:21 Not Given INS[employer]OR [employer]ICATION[employer] TAVO Protocol Potassium Chloride/Dextrose/Sod Cl 20 meq in 1,000 mls @ 100 mls/hr 12/02/18 06:30 12/03/18 05:45 D5-1/2ns+20 Meq Kcl - IV 100 mls/hr ASDIR TAVO Administration Insulin Aspart 1 vial 11/30/18 22:00 12/03/18 06:06 Novolog Vial Sliding Scale - SQ 4 units ACHS TAVO Administration Protocol Mupirocin 1 applic 11/30/18 22:00 12/02/18 21:48 Bactroban Ointment (For Decolonization) - NS 12/03/18 21:59 1 applic BID TAVO Administration Pantoprazole Sodium 20 mg 11/30/18 22:30 12/02/18 21:49 Protonix Iv IVPUSH 20 mg BID TAVO Administration ASSESSMENT/PLAN: Patient is a 68 year old male with history of hypertension, hyperlipidemia, insulin dependent diabetes mellitus type II, peripheral vascular disease, presents with complaint of bright red blood per rectum. Admitted to ICU for tenuous blood pressures. Neurological Syncopal episode -Patient is currently awake, alert, communicative, oriented. -Syncopal episode likely secondary to vasovagal syncope. -CT head negative for acute intracranial pathology -Fall precautions Pulmonary -Patient is currently saturating well on room air -Maintain oxygen saturation greater than 90% Cardiac History of hypertension History of hyperlipidemia -Holding home antihypertensives given tenuous blood pressure -Holding home Aspirin due to bleeding -Cardiac Monitoring Gastrointenstinal -Patient is s/p colonscopy, and sub-total colectomy. -Hydromorphone [employer]ICATION[employer] for pain. Currently, well controlled. -CTA negative for acute bleeding x2 -GI consult (Dr. Damian) appreciated. -General surgery recommendations (Dr. Naranjo) appreciated. Endocrine History of Diabetes Mellitus -Insulin sliding scale ACHS -Fingerstick blood glucose monitoring ACHS Hematologic Acute blood loss anemia secondary to GI bleeding -Currently Hb/ Hct 8.3/ 24.9; stable -Monitor serial Hb/ Hct. Normal transfusion thresholds. FEN -IV D5 1/2 NS + 20meq KCL at 100mL/ hour -Follow CMP, replete as necessary -NPO, except for ice chips Prophylaxis -Withholding chemical anticoagulation due to GI bleeding -SCDs bilateral lower extremities. -Protonix 20mg IV BID Disposition: -Patient medically stable for transfer to Telemetry floor. Visit type - Emergency Visit Emergency Visit: Yes ED Registration Date: 11/28/18 Care time: The patient presented to the Emergency Department on the above date and was hospitalized for further evaluation of their emergent condition. - New Patient This patient is new to me today: No - Critical Care Critical Care patient: Yes Total Critical Care Time (in minutes): 35 Critical Care Statement: The care of this patient involved high complexity decision making to prevent further life threatening deterioration of the patient 's condition and/or to evaluate & treat vital organ system(s) failure or risk of failure. - Discharge Referral Referred to [facility] Med P.C.: No
[2018-12-03] MEDS: PANTOPRAZOLE SODIUM 40 MG VIAL IVPUSH SCH ×2 (09:49→22:29)
--- NOTE | 2018-12-03 09:53 | PN ---
Physical Exam: SUBJECTIVE: Patient seen and examined, abdominal pain better. had a BM yesterday. No nausea,vomitting. Overall feels better. OBJECTIVE: Vital Signs Period Temp Pulse Resp BP Sys/Gallardo Pulse Ox Last 24 Hr 97.8 F-98.6 F 92-108 15-18 128-165/56-87 100 Intake & Output 11/30/18 12/01/18 12/02/18 12/03/18 23:59 23:59 23:59 23:59 Intake Total 82538 2983 2534 1200 Output Total 2700 2450 2050 925 Balance 7605 533 484 275 Weight 198 lb 10.184 oz 204 lb 8 oz 200 lb 3 oz 197 lb 5 oz GENERAL: lying in bed in no acute distress HEENT: NG tube in place Neck: soft, supple, no JVD Chest: good effort, no rales or wheezing appreciated Abdomen:soft, incisional tenderness, wound clean, normoactive bowel sounds, no voluntary or involuntary guarding or rigidity Extremities: no edema Psych: pleasant, co-operative Laboratory Results - last 24 hr 11/28/18 12/02/18 12/02/18 09:00 11:43 12:06 WBC 16.2 H RBC 2.57 L Hgb 7.8 L Hct 22.8 L MCV 88.5 MCH 30.2 MCHC 34.1 RDW 15.4 Plt Count 220 MPV 7.9 Sodium Potassium Chloride Carbon Dioxide Anion Gap BUN Creatinine Est GFR (CKD-EPI)AfAm Est GFR (CKD-EPI)NonAf POC Glucometer 197 Random Glucose Calcium Phosphorus Magnesium Total Bilirubin AST ALT Alkaline Phosphatase Total Protein Albumin Blood Type O POSITIVE Antibody Screen Negative Crossmatch See Detail Crossmatch IS Only See Detail 12/02/18 12/02/18 12/03/18 16:30 21:46 05:15 WBC 15.9 H RBC 2.76 L Hgb 8.3 L Hct 24.9 L MCV 90.1 MCH 30.0 MCHC 33.3 RDW 15.5 Plt Count 260 MPV 7.9 Sodium Potassium Chloride Carbon Dioxide Anion Gap BUN Creatinine Est GFR (CKD-EPI)AfAm Est GFR (CKD-EPI)NonAf POC Glucometer 178 244 Random Glucose Calcium Phosphorus Magnesium Total Bilirubin AST ALT Alkaline Phosphatase Total Protein Albumin Blood Type Antibody Screen Crossmatch Crossmatch IS Only 12/03/18 12/03/18 05:15 05:16 WBC RBC Hgb Hct MCV MCH MCHC RDW Plt Count MPV Sodium 142 Potassium 4.1 Chloride 111 H Carbon Dioxide 24 Anion Gap 7 L BUN 9.8 Creatinine 0.8 Est GFR (CKD-EPI)AfAm 104.90 Est GFR (CKD-EPI)NonAf 90.51 POC Glucometer 270 Random Glucose 287 H Calcium 7.8 L Phosphorus 3.0 Magnesium 2.0 Total Bilirubin 0.6 AST 12 L ALT 12 L Alkaline Phosphatase 48 Total Protein 4.3 L Albumin 1.8 L Blood Type Antibody Screen Crossmatch Crossmatch IS Only Active Medications Generic Name Dose Route Start Last Admin Trade Name Freq PRN Reason Stop Dose Admin Acetaminophen 650 mg 11/30/18 18:38 Tylenol - PO Q4H PRN FEVER Benzocaine/Menthol 1 each 12/02/18 06:27 12/02/18 08:32 Cepacol Lozenge - MM 1 each PRN PRN Administration SORE THROAT Chlorhexidine Gluconate 1 applic 11/30/18 22:00 12/02/18 21:48 Hibiclens For Decolonization - TP 1 applic HS TAVO Administration Dexamethasone Sodium Phosphate 4 mg 11/30/18 18:38 Decadron Injection - IVPUSH ONCE PRN NAUSEA AND/OR VOMITING Diphenhydramine HCl 12.5 mg 11/30/18 18:38 Benadryl Injection - IVPUSH ONCE PRN FOR ITCHING Hydromorphone HCl 10 mg 11/30/18 18:38 12/03/18 05:40 Hydromorphone 10 Mg/50 Ml-Ns HOSIERY LOOPER 12/07/18 17:21 Not Given HOSIERY LOOPER TAVO Protocol Potassium Chloride/Dextrose/Sod Cl 20 meq in 1,000 mls @ 100 mls/hr 12/02/18 06:30 12/03/18 05:45 D5-1/2ns+20 Meq Kcl - IV 100 mls/hr ASDIR TAVO Administration Insulin Aspart 1 vial 11/30/18 22:00 12/03/18 06:06 Novolog Vial Sliding Scale - SQ 4 units ACHS TAVO Administration Protocol Mupirocin 1 applic 11/30/18 22:00 12/02/18 21:48 Bactroban Ointment (For Decolonization) - NS 12/03/18 21:59 1 applic BID TAVO Administration Pantoprazole Sodium 20 mg 11/30/18 22:30 12/03/18 09:49 Protonix Iv IVPUSH 20 mg BID TAVO Administration ASSESSMENT/PLAN: 68 yom with PMHx of HTN, HLD, IDDM, PVD s/p toe amputation admitted with multiple episodes of BRBPR and syncope -Acute lower GI bleed, suspect diverticular vs ulcerative disease terminal ileum /ileocecal valve (as visible on colonoscopy, r/o IBD) -Acute blood loss anemia -Syncope, from above -Hypophosphatemia -HTN -HLD -IDDM -PVD s/p toes amputation Plan: Hb stable, monitor h/h, transfuse for Hb < 8. Surgery input noted. NG tube/PO per surgery.NG with minimal drainage, ?Dc, follow up with surgery. Not using HOSIERY LOOPER, d/c. Dilaudid IV prn. Gi input noted, EGD neg for bleed Colonoscopy with moderate diverticulosis Hepatic flexure/bowel, also oozing ulcer/small vessel at ileocecal valve s/p epi/cautery and multiple ulcers terminal ileum. Follow up biopsy results. CTA Abdomen/pelvis neg for bleed s/p subtotal colectomy 11/30 ISS, replete Phos prn. Resume anti-hypertensives based on hemodynamics and po intake DVTPPX SCDs Dispo ok for transfer to medical floor over 24 hours if no concerns, pending surgery input. Care co-ordinated with ICU team. Total critical care time spent 36 min. Visit type - Emergency Visit Emergency Visit: Yes ED Registration Date: 11/28/18 Care time: The patient presented to the Emergency Department on the above date and was hospitalized for further evaluation of their emergent condition. - New Patient This patient is new to me today: No - Critical Care Critical Care patient: Yes Total Critical Care Time (in minutes): 36 Critical Care Statement: The care of this patient involved high complexity decision making to prevent further life threatening deterioration of the patient 's condition and/or to evaluate & treat vital organ system(s) failure or risk of failure.
[2018-12-03] MEDS ORDERED: HYDROmorphone HCl 2 MG/ML VIAL IVPB PRN (10:02)
[2018-12-03] MEDS ORDERED: oxyCODONE HCL 5 MG TABLET PO PRN ×3 (11:13→21:27)
[2018-12-03] MEDS: MUPIROCIN 2% TOPICAL OINTMENT FOR DECOLONIZATION NS SCH (11:53)
--- NOTE | 2018-12-03 12:00 | PN ---
Teaching Attending Note Name of Resident: Tanmay Henderson ATTENDING PHYSICIAN STATEMENT I saw and evaluated the patient. I reviewed the resident's note and discussed the case with the resident. I agree with the resident's findings and plan as documented. SUBJECTIVE: Pt seen and examined in the ICU. No further bleeding, had green bowel movement. Pain controlled. Has not required transfusions last 24 hrs. OBJECTIVE: Vital Signs Period Temp Pulse Resp BP Sys/Gallardo Pulse Ox Last 24 Hr 97.7 F-98.6 F 90-108 15-18 128-165/56-87 100 Intake & Output 11/30/18 12/01/18 12/02/18 12/03/18 23:59 23:59 23:59 23:59 Intake Total 19902 2983 2534 1200 Output Total 2700 2450 2050 925 Balance 7605 533 484 275 Weight 90.1 kg 92.76 kg 90.804 kg 89.499 kg Gen: NAD at rest Heart: RRR Lung: decreased breath sounds at the bases Abd: soft, incision clean Ext: no edema CBC, BMP 12/03/18 05:15 12/03/18 05:15 Active Medications Acetaminophen (Tylenol -) 650 mg PO Q4H PRN PRN Reason: FEVER Benzocaine/Menthol (Cepacol Lozenge -) 1 each MM PRN PRN PRN Reason: SORE THROAT Last Admin: 12/02/18 08:32 Dose: 1 each Chlorhexidine Gluconate (Hibiclens For Decolonization -) 1 applic TP HS TAVO Last Admin: 12/02/18 21:48 Dose: 1 applic Dexamethasone Sodium Phosphate (Decadron Injection -) 4 mg IVPUSH ONCE PRN PRN Reason: NAUSEA AND/OR VOMITING Diphenhydramine HCl (Benadryl Injection -) 12.5 mg IVPUSH ONCE PRN PRN Reason: FOR ITCHING Potassium Chloride/Dextrose/Sod Cl (D5-1/2ns+20 Meq Kcl -) 20 meq in 1,000 mls @ 100 mls/hr IV ASDIR TAVO Last Admin: 12/03/18 05:45 Dose: 100 mls/hr Insulin Aspart (Novolog Vial Sliding Scale -) 1 vial SQ ACHS [facility]; Protocol Last Admin: 12/03/18 11:52 Dose: 2 units Mupirocin (Bactroban Ointment (For Decolonization) -) 1 applic NS BID [facility] Stop: 12/03/18 21:59 Last Admin: 12/03/18 11:53 Dose: 1 applic Oxycodone HCl (Roxicodone -) 5 mg PO Q6H PRN PRN Reason: PAIN LEVEL 1-5 Pantoprazole Sodium (Protonix Iv) 20 mg IVPUSH BID [facility] Last Admin: 12/03/18 09:49 Dose: 20 mg ASSESSMENT AND PLAN: GI Bleed Acute Blood Loss Anemia s/p ex-lap/subtotal colectomy HTN DM Hyperlipidemia PAD - monitor H/H - transfuse as needed - pain control - incentive spirometry - IVF - monitor urine output, creatinine - PO per GI - DVT/GI prophylaxis - can monitor on floor
--- NOTE | 2018-12-03 17:02 | PN.GI ---
GI Progress Note Subjective: Patient awake, No acute events overnight. states feeling well NGT has been off suction for 2 hours. no complaints of nausea, no vomiting. When placed back on suction, no output. Greenish mucoid BM reported overnight with ? passage of dark/old blood prior to that + Cough - Objective Vital Signs: Vital Signs Temperature 98.1 F 12/03/18 14:00 Pulse Rate 103 H 12/03/18 14:00 Respiratory Rate 15 12/03/18 14:00 Blood Pressure 145/72 12/03/18 14:00 O2 Sat by Pulse Oximetry (%) 100 12/02/18 22:00 Constitutional: Calm Eyes: No: Sclera Icterus Cardiovascular: Yes: Tachycardia Respiratory: Yes: Rhonchi (at bases bilaterally) Gastrointestinal Inspection: Yes: Scars (long vertical midline surgical scar with cydney in place). No: Distention ...Auscultate: Yes: Normoactive Bowel Sounds ...Percussion: No: Tympanitic Edema: Yes (B/L hands, No LE edema) Neurological: Yes: Alert Labs: CBC, BMP 12/03/18 05:15 12/03/18 05:15 INR, PTT INR 1.19 (0.83-1.09) H 12/01/18 11:50 Fibrinogen 138.0 mg/dL (238-498) L 11/30/18 08:25 Problem List - Problems (1) GI bleed Assessment/Plan: S/P subtotal colectomy secondary to recurrent significant rectal bleeding No overt bleeding with stable H/H Post op care per surgery / ICU team Consider Nutrition evaluation to discuss outpatient dietary modifications with patient and his family Encouraged use of incentive spirometry Follow-up EGD/Colonoscopy biopsy results Code(s): K92.2 - GASTROINTESTINAL HEMORRHAGE, UNSPECIFIED Qualifiers: GI bleed type/associated pathology: unspecified gastrointestinal hemorrhage type Qualified Code(s): K92.2 - Gastrointestinal hemorrhage, unspecified
--- NOTE | 2018-12-03 17:59 | PN ---
Progress Note, Physician History of Present Illness: Covering for Dr. Naranjo: Pt is s/p subtotal colectomy for LGIB. Had dark red/old bloody BM yesterday, green mucoid output overnight. Passing gas. Seen and examined in ICU bed with son and present. CLUB ROOM ATTENDANT was stopped earlier today. Has not had pain med since , states pain is about 4/10. Was up in chair for about 2 hrs earlier, but would not get up with PT after that to walk. He indicates he is feeling ok except would like the NGT out. Using IS, has good cough with some phlegm. Lamb is out ; he is voiding well. ICU plans transfer to floor when bed available. - Current Medication List Current Medications: Active Medications Acetaminophen (Tylenol -) 650 mg PO Q4H PRN PRN Reason: FEVER Benzocaine/Menthol (Cepacol Lozenge -) 1 each MM PRN PRN PRN Reason: SORE THROAT Last Admin: 12/02/18 08:32 Dose: 1 each Chlorhexidine Gluconate (Hibiclens For Decolonization -) 1 applic TP HS [facility] Last Admin: 12/02/18 21:48 Dose: 1 applic Dexamethasone Sodium Phosphate (Decadron Injection -) 4 mg IVPUSH ONCE PRN PRN Reason: NAUSEA AND/OR VOMITING Diphenhydramine HCl (Benadryl Injection -) 12.5 mg IVPUSH ONCE PRN PRN Reason: FOR ITCHING Potassium Chloride/Dextrose/Sod Cl (D5-1/2ns+20 Meq Kcl -) 20 meq in 1,000 mls @ 100 mls/hr IV ASDIR [facility] Last Admin: 12/03/18 05:45 Dose: 100 mls/hr Insulin Aspart (Novolog Vial Sliding Scale -) 1 vial SQ ACHS [facility]; Protocol Last Admin: 12/03/18 17:40 Dose: 2 units Mupirocin (Bactroban Ointment (For Decolonization) -) 1 applic NS BID [facility] Stop: 12/03/18 21:59 Last Admin: 12/03/18 11:53 Dose: 1 applic Oxycodone HCl (Roxicodone -) 5 mg PO Q6H PRN PRN Reason: PAIN LEVEL 1-5 Pantoprazole Sodium (Protonix Iv) 20 mg IVPUSH BID [facility] Last Admin: 12/03/18 09:49 Dose: 20 mg - Objective Vital Signs: Vital Signs Temperature 98.1 F 12/03/18 14:00 Pulse Rate 103 H 12/03/18 14:00 Respiratory Rate 15 12/03/18 14:00 Blood Pressure 145/72 12/03/18 14:00 O2 Sat by Pulse Oximetry (%) 100 12/02/18 22:00 Vital Signs Period Temp Pulse Resp BP Sys/Gallardo Pulse Ox Last 24 Hr 97.7 F-98.2 F 90-105 - 97-165/49-74 100 Constitutional: Yes: Well Nourished, No Distress, Calm Eyes: Yes: Conjunctiva Clear, EOM Intact HENT: Yes: Atraumatic, Normocephalic, Other (NGT in place with scant clear/ green output in canister. Was clamped for ~2hrs with minimal residual when reconnected. Removed at bedside.) Gastrointestinal: Yes: Soft, Distention (tympanic, soft), Hypoactive Bowel Sounds (more in lower abdomen), Tenderness (mild in bilateral lower quadrants, also incisional, minimal in upper quadrants) Genitourinary: No: Lamb Present, Incontinence Extremities: No: Cool, Cyanosis Edema: No Integumentary: Yes: Incision (midline with cydney). No: Jaundice, Rash Wound/Incision: Yes: Clean/Dry, Well Approximated, Cydney Intact, Open to air. No: Reddened Neurological: Yes: Alert, Oriented Labs: CBC, BMP 12/03/18 05:15 12/03/18 05:15 CMP Sodium 142 mmol/L (136-145) 12/03/18 05:15 Potassium 4.1 mmol/L (3.5-5.1) 12/03/18 05:15 Chloride 111 mmol/L (98-107) H 12/03/18 05:15 Carbon Dioxide 24 mmol/L (21-32) 12/03/18 05:15 Anion Gap 7 MMOL/L (8-16) L 12/03/18 05:15 BUN 9.8 mg/dL (7-18) 12/03/18 05:15 Creatinine 0.8 mg/dL (0.55-1.3) 12/03/18 05:15 Est GFR (CKD-EPI)AfAm 104.90 12/03/18 05:15 Est GFR (CKD-EPI)NonAf 90.51 12/03/18 05:15 POC Glucometer 209 UNITS (80-120) 12/03/18 17:35 Random Glucose 287 mg/dL (74-106) H 12/03/18 05:15 Calcium 7.8 mg/dL (8.5-10.1) L 12/03/18 05:15 Phosphorus 3.0 mg/dL (2.5-4.9) 12/03/18 05:15 Magnesium 2.0 mg/dL (1.8-2.4) 12/03/18 05:15 Total Bilirubin 0.6 mg/dL (0.2-1) 12/03/18 05:15 AST 12 U/L (15-37) L 12/03/18 05:15 ALT 12 U/L (13-61) L 12/03/18 05:15 Alkaline Phosphatase 48 U/L (45-117) 12/03/18 05:15 Total Protein 4.3 g/dl (6.4-8.2) L 12/03/18 05:15 Albumin 1.8 g/dl (3.4-5.0) L 12/03/18 05:15 Hb stable Problem List - Problems (1) Acute lower gastrointestinal hemorrhage Assessment/Plan: POD 3 s/p subtotal colectomy (distal ileum, ~1' from IC valve, to mid-sigmoid) for refractory LGIB, unable to localize on CTA doing well overall has had some bowel function and is passing flatus incision with cydney c/d/i Lamb out, CLUB ROOM ATTENDANT off bowel sounds present, still somewhat distended NG tube removed at bedside will allow ice chips and meds with sips tonight will assess for clears in am pain minimal, prn meds ordered - would use tylenol first line has been OOB, pt encouraged to work with PT tomorrow whenever they come - needs to ambulate GI/ICU notes reviewed continue IS, pulm toilet GI/DVT prophylaxis f/u pathology trend labs This patient is critically ill. Time spent reviewing chart, examining patient, talking with providers and/or family and documentation is 35 minutes. Code(s): K92.2 - GASTROINTESTINAL HEMORRHAGE, UNSPECIFIED (2) Anemia due to acute blood loss Assessment/Plan: Hb stable no further transfusions have been needed Code(s): D62 - ACUTE POSTHEMORRHAGIC ANEMIA (3) Diabetes Assessment/Plan: FS with SSI Code(s): E11.9 - TYPE 2 DIABETES MELLITUS WITHOUT COMPLICATIONS Qualifiers: Diabetes mellitus type: type 2 Diabetes mellitus snf insulin use: with snf use Diabetes mellitus complication status: with circulatory complication Diabetes mellitus complication detail: with peripheral angiopathy without gangrene Qualified Code(s): E11.51 - Type 2 diabetes mellitus with diabetic peripheral angiopathy without gangrene; 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
[2018-12-03 18:09] LABS: ATYPICAL pANCA <1:20 titer (Neg:<1:20)
[2018-12-03] MEDS ORDERED: ACETAMINOPHEN 325 MG TABLET (FP) PO PRN ×2 (18:16→21:27)
[2018-12-03] MEDS ORDERED: BENZOCAINE/MENTH/CETYLPYRD CL 1 EACH LOZENGE MM PRN (21:27)
[2018-12-04] MEDS: D5-1/2NS+20 MEQ KCL - 20 MEQ/1,000 ML INFUS.BAG IV SCH (05:48)
[2018-12-04] MEDS: INSULIN SLIDING SCALE (NOVOLOG) 1 VIAL SQ SCH ×4 (06:30→22:04)
[2018-12-04 08:00] LABS: CALCIUM 7.4 mg/dL (8.5-10.1); CREATININE 0.7 mg/dL (0.55-1.3); MAGNESIUM 2.1 mg/dL (1.8-2.4); PHOSPHOROUS 2.2 mg/dL (2.5-4.9); POTASSIUM 3.9 mmol/L (3.5-5.1)
[2018-12-04 08:18] LABS: HEMATOCRIT 21.9 % (35.4-49); HEMOGLOBIN 7.4 GM/dL (11.7-16.9); MCH 30.2 pg (25.7-33.7); MCHC 33.6 g/dl (32.0-35.9); MEAN CELL VOLUME 90.1 fl (80-96); MEAN PLT VOLUME 7.9 fl (7.5-11.1); PLATELET COUNT 312 K/MM3 (134-434); RBC 2.43 M/mm3 (4.00-5.60); RDW 15.4 % (11.9-15.9)
--- NOTE | 2018-12-04 09:44 | PN ---
Physical Exam: SUBJECTIVE: Patient seen and examined, reports some abdominal pain last night, no nausea, vomiting, dyspnea or new cough noted. Asking to eat. OBJECTIVE: Vital Signs Period Temp Pulse Resp BP Sys/Gallardo Pulse Ox Last 24 Hr 97.7 F-100.1 F 90-112 14-20 97-154/49-94 Intake & Output 12/01/18 12/02/18 12/03/18 12/04/18 23:59 23:59 23:59 23:59 Intake Total 2983 2534 1350 1000 Output Total 2450 2050 1725 900 Balance 533 484 -375 100 Weight 204 lb 8 oz 200 lb 3 oz 197 lb 5 oz 198 lb GENERAL: lying in bed in no acute distress HEENT: NG tube removed Chest: Bibasilar rales, no wheezing, good air entry bilaterally ABdomen:soft, some distension, clean vertical central incision with cydney, tenderness around the incisional site, pos bowel sounds, no voluntary or involuntary guarding or rigidity Extremities: no edema, toe amputations Psych: pleasant, co-operative Laboratory Results - last 24 hr 11/28/18 11/30/18 12/03/18 09:00 08:25 11:46 WBC RBC Hgb Hct MCV MCH MCHC RDW Plt Count MPV Sodium Potassium Chloride Carbon Dioxide Anion Gap BUN Creatinine Est GFR (CKD-EPI)AfAm Est GFR (CKD-EPI)NonAf POC Glucometer 204 Random Glucose Calcium Phosphorus Magnesium Atypical p-ANCA <1:20 S.cerevisiae IgG Ab <20.0 S. cerevisiae IgG/IgA <20.0 Blood Type O POSITIVE Antibody Screen Negative Crossmatch See Detail Crossmatch IS Only See Detail 12/03/18 12/03/18 12/04/18 17:35 22:22 05:54 WBC RBC Hgb Hct MCV MCH MCHC RDW Plt Count MPV Sodium Potassium Chloride Carbon Dioxide Anion Gap BUN Creatinine Est GFR (CKD-EPI)AfAm Est GFR (CKD-EPI)NonAf POC Glucometer 209 235 260 Random Glucose Calcium Phosphorus Magnesium Atypical p-ANCA S.cerevisiae IgG Ab S. cerevisiae IgG/IgA Blood Type Antibody Screen Crossmatch Crossmatch IS Only 12/04/18 12/04/18 06:38 06:38 WBC 16.0 H RBC 2.43 L Hgb 7.4 L Hct 21.9 L MCV 90.1 MCH 30.2 MCHC 33.6 RDW 15.4 Plt Count 312 MPV 7.9 Sodium 137 Potassium 3.9 Chloride 106 Carbon Dioxide 24 Anion Gap 7 L BUN 7.0 Creatinine 0.7 Est GFR (CKD-EPI)AfAm 110.82 Est GFR (CKD-EPI)NonAf 95.61 POC Glucometer Random Glucose 239 H Calcium 7.4 L Phosphorus 2.2 L Magnesium 2.1 Atypical p-ANCA S.cerevisiae IgG Ab S. cerevisiae IgG/IgA Blood Type Antibody Screen Crossmatch Crossmatch IS Only Active Medications Generic Name Dose Route Start Last Admin Trade Name Freq PRN Reason Stop Dose Admin Acetaminophen 650 mg 12/03/18 21:27 12/04/18 05:50 Tylenol - PO 650 mg Q4H PRN Administration Pain Level 4 - 10 Benzocaine/Menthol 1 each 12/03/18 21:27 Cepacol Lozenge - MM PRN PRN SORE THROAT Diphenhydramine HCl 12.5 mg 12/03/18 21:27 Benadryl Injection - IVPUSH ONCE PRN FOR ITCHING Potassium Chloride/Dextrose/Sod Cl 20 meq in 1,000 mls @ 100 mls/hr 12/03/18 21:27 12/04/18 05:48 D5-1/2ns+20 Meq Kcl - IV 100 mls/hr ASDIR TAVO Administration Insulin Aspart 1 vial 12/03/18 22:00 12/04/18 06:30 Novolog Vial Sliding Scale - SQ 4 units ACHS TAVO Administration Protocol Oxycodone HCl 5 mg 12/03/18 21:27 Roxicodone - PO Q6H PRN Pain level 7-10 BREAKTHROUGH Pantoprazole Sodium 20 mg 12/03/18 22:00 12/03/18 22:29 Protonix Iv IVPUSH 20 mg BID TAVO Administration ASSESSMENT/PLAN: 68 yom with PMHx of HTN, HLD, IDDM, PVD s/p toe amputation admitted with multiple episodes of BRBPR and syncope -Acute lower GI bleed, suspect diverticular vs ulcerative disease terminal ileum /ileocecal valve (as visible on colonoscopy, r/o IBD), s/p subtotal colectomy -Acute blood loss anemia -Syncope, from above -Fever, suspect ateletasis, r/o PNA, low suspicion for abdominal etiology -Hypophosphatemia -HTN -HLD -IDDM -PVD s/p toes amputation Plan: H.h noted, no gross evidence of bleed or hemodynamic instability. Transfuse 1 unit PRBC, monitor closely. Surgery input noted, NG tube removed. PO and additional abdominal imaging per surgery. Low grade fevers with bibasilar rales, suspect atelectasis. Given persistent WBC , check CXR. Discussed with patient and RN, Aggressive incentive spirometry and ambulation. 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 TYlenol/oxycodone prn for pain, minimize narcotics. Gi input noted, EGD neg for bleed Colonoscopy with moderate diverticulosis Hepatic flexure/bowel, also oozing ulcer/small vessel at ileocecal valve s/p epi/cautery and multiple ulcers terminal ileum. Follow up biopsy results. CTA Abdomen/pelvis neg for bleed s/p subtotal colectomy 11/30 ISS, dc D5 in IVF, patient hyperglycemia. Monitor BGM. replete Phos prn. Resume anti-hypertensives based on hemodynamics and po intake DVTPPX No heparin given anemia and concerns for bleed.Encourage ambulation. SCDs PT eval noted, For SNF. Dispo pending clinical improvement. Plan discussed with patient and nursing, all questions answered. Visit type - Emergency Visit Emergency Visit: Yes ED Registration Date: 11/28/18 Care time: The patient presented to the Emergency Department on the above date and was hospitalized for further evaluation of their emergent condition. - New Patient This patient is new to me today: No - Critical Care Critical Care patient: No - Discharge Referral Referred to [facility] No
--- NOTE | 2018-12-04 09:48 | PATH ---
Surgical Pathology Report Patient Name: GUSTAVO CARVALHO I. [facility]. Rec. #: [id number] /Age/Gender: 1950 (Age: 68) / M Account: [id number] Location: [address] [place] [address]/[facility] Taken: 11/29/2018 Received: 12/02/2018 Reported: 12/04/2018 Physicians: Bubba Llamas M.D. Specimen(s) Received A: BX ANTRUM EROSIONS B: BX ANTRUM ULCER C: BX BODY AND ANGULARIS D: TERMINAL ILEUM BX E: ILEOCECAL VALVE BIOPSY F: RECTAL POLYP Clinical History Anemia, rectal bleeding Postoperative diagnosis: Antral erosions, antral gastritis, diverticulosis, ulcer, ileitis, ileocecal valve ulcer, rectal polyp, terminal ileal ulcerations Final Diagnosis A. ANTRUM EROSIONS, BIOPSY: GASTRIC MUCOSA WITH ACTIVE CHRONIC GASTRITIS. IMMUNOSTAIN IS POSITIVE FOR RARE H. PYLORI ORGANISMS. NEGATIVE FOR INTESTINAL METAPLASIA. B. ANTRUM ULCER, BIOPSY: GASTRIC MUCOSA WITH ACTIVE CHRONIC GASTRITIS. IMMUNOSTAIN IS POSITIVE FOR RARE H. PYLORI ORGANISMS. NEGATIVE FOR INTESTINAL METAPLASIA. C. ANGULARIS AND BODY, BIOPSY: GASTRIC MUCOSA WITH ACTIVE CHRONIC GASTRITIS. IMMUNOSTAIN FOR H. PYLORI IS POSITIVE. NEGATIVE FOR INTESTINAL METAPLASIA. D. TERMINAL ILEUM BIOPSY: SMALL INTESTINAL MUCOSA WITH ULCERATION, ACUTE AND CHRONIC INFLAMMATION, AND VILLI ARCHITECTURAL DISTORTION. NEGATIVE FOR GRANULOMATOUS INFLAMMATION. E. ILEAOCECAL VALVE BIOPSY: COLONIC MUCOSA WITH ULCERATION, ACUTE AND CHRONIC INFLAMMATION, AND CRYPT ARCHITECTURAL DISTORTION. NEGATIVE FOR GRANULOMATOUS INFLAMMATION. F. RECTAL POLYP, BIOPSY: POLYPOID COLONIC MUCOSA WITH INCREASED FOAMY HISTIOCYTES IN THE LAMINA PROPRIA AND SURFACE HYPERPLASTIC CHANGE, CONSISTENT WITH XANTHOMA. Also see concurrent pathology report [id number]. Electronically Signed Erin Mcneal M.D. Gross Description A. Received in formalin, labeled "antral erosions biopsy" is a henderson, irregular portion of soft tissue measuring 0.4 cm. in greatest dimension. The specimen is submitted in toto in one cassette. B. Received in formalin, labeled "antral ulcer" is a henderson, irregular portion of soft tissue measuring 0.4 cm. in greatest dimension. The specimen is submitted in toto in one cassette. C. Received in formalin, labeled "angularis and body biopsy" are 2 henderson, irregular portions of soft tissue measuring 0.4 and 0.5 cm. in greatest dimension. The specimens are submitted in toto in one cassette. D. Received in formalin, labeled "terminal ileal ulcerations biopsy" are 5 henderson, irregular portions of soft tissue ranging from 0.1-0.4 cm. in greatest dimension. The specimens are submitted in toto in one cassette. E. Received in formalin, labeled "ileocecal valve biopsy" are 2 henderson, irregular portions of soft tissue averaging 0.4 cm. in greatest dimension. The specimens are submitted in toto in one cassette. F. Received in formalin, labeled "rectal polyp biopsy" are 3 henderson, irregular portions of soft tissue ranging from 0.1-0.3 cm. in greatest dimension. The specimens are submitted in toto in one cassette. 12/02/2018 [facility] [place]12/02/2018
[2018-12-04] MEDS: PANTOPRAZOLE SODIUM 40 MG VIAL IVPUSH SCH ×2 (10:21→21:48)
[2018-12-04] MEDS: NAPH,MB-DB/K PH,MBDB POWDER PACKET PO SCH ×2 (10:21→21:47)
[2018-12-04] MEDS ORDERED: PT OWN MED DRAWER 7, Y5N ONE (11:56)
[2018-12-04] MEDS: POTASSIUM CHLORIDE 10 MEQ in SODIUM CHLORIDE 0.45% 1,000 ML IVPB SCH (11:57)
--- NOTE | 2018-12-04 16:43 | PN.GI ---
GI Progress Note Subjective: Pt seen/examined at bedside, transferred to medical floors from ICU. Feeling better, mild tenderness at incision site. Denies nausea/vomiting. Had large dark brown liquid bm. - Objective Vital Signs: Vital Signs Temperature 98.9 F 12/04/18 14:44 Pulse Rate 99 H 12/04/18 14:44 Respiratory Rate 20 12/04/18 14:44 Blood Pressure 126/63 12/04/18 14:44 O2 Sat by Pulse Oximetry (%) 98 12/04/18 09:00 Constitutional: Well Nourished, No Distress, Calm Cardiovascular: Yes: WNL, Regular Rate and Rhythm Respiratory: Yes: WNL, Regular, CTA Bilaterally ...Palpate: Yes: Other (Abd soft, +midline incision with cydney intact, mildly tender on palpation, non distended, no rebound, guarding or rigidity) Labs: CBC, BMP 12/04/18 06:38 12/04/18 06:38 INR, PTT INR 1.19 (0.83-1.09) H 12/01/18 11:50 Fibrinogen 138.0 mg/dL (238-498) L 11/30/18 08:25 Problem List - Problems (1) GI bleed Assessment/Plan: Lower GI bleed s/p EGD revealing antral erosions and ulcers, colonoscopy revealing ulcerated ICV, TI ulcerations and diverticulosis (path pending) with recurrent bleeding now s/p subtotal colectomy (including distal ileum resection ) POD #4. Hb mildly fluctuating though stable. No further overt bleeding. -Continue to closely monitor Hb and evidence of bleeding -PPI bid -Follow up final pathology results (including surgical specimen) -Further post op care per surgery team Code(s): K92.2 - GASTROINTESTINAL HEMORRHAGE, UNSPECIFIED Qualifiers: GI bleed type/associated pathology: unspecified gastrointestinal hemorrhage type Qualified Code(s): K92.2 - Gastrointestinal hemorrhage, unspecified
--- NOTE | 2018-12-04 16:52 | PN ---
Progress Note, Physician History of Present Illness: Covering for Dr. Naranjo: Pt is s/p subtotal colectomy for LGIB. Has had bowel movement today, yellow- brown per nursing, soft/loose, seen by GI. Seen and examined in bed with son and family present. Notes "a little" pain, good effect with po pain meds. Was up in chair earlier and ambulated in [place] with PT. NGT was removed last evening. Using IS, has good cough with some phlegm. He was transferred up to floor from ICU last night. He is hungry. No fevers, but wbc still elevated. Getting one unit blood today for Hb 7.4. - Current Medication List Current Medications: Active Medications Acetaminophen (Tylenol -) 650 mg PO Q4H PRN PRN Reason: Pain Level 4 - 10 Last Admin: 12/04/18 05:50 Dose: 650 mg Benzocaine/Menthol (Cepacol Lozenge -) 1 each MM PRN PRN PRN Reason: SORE THROAT Diphenhydramine HCl (Benadryl Injection -) 12.5 mg IVPUSH ONCE PRN PRN Reason: FOR ITCHING Potassium Chloride 10 meq/ (Sodium Chloride) 1,005 mls @ 75 mls/hr IVPB Q13H [facility] Last Admin: 12/04/18 11:57 Dose: 75 mls/hr Insulin Aspart (Novolog Vial Sliding Scale -) 1 vial SQ [facility]; Protocol Last Admin: 12/04/18 12:21 Dose: 2 units Oxycodone HCl (Roxicodone -) 5 mg PO Q6H PRN PRN Reason: Pain level 7-10 BREAKTHROUGH Pantoprazole Sodium (Protonix Iv) 20 mg IVPUSH BID [facility] Last Admin: 12/04/18 10:21 Dose: 20 mg Potassium Phos/Sodium Phos (Phos-Nak Packet -) 2 packet PO BID [facility] Stop: 12/05/18 22:01 Last Admin: 12/04/18 10:21 Dose: 2 packet - Objective Vital Signs: Vital Signs Temperature 98.9 F 12/04/18 14:44 Pulse Rate 99 H 12/04/18 14:44 Respiratory Rate 20 12/04/18 14:44 Blood Pressure 126/63 12/04/18 14:44 O2 Sat by Pulse Oximetry (%) 98 12/04/18 09:00 Constitutional: Yes: Well Nourished, No Distress, Calm Eyes: Yes: Conjunctiva Clear, EOM Intact HENT: Yes: Atraumatic, Normocephalic Gastrointestinal: Yes: Soft, Distention (minimal, mild tympany), Hypoactive Bowel Sounds, Tenderness (lower abdomen mild, no javid/guard; also incisional, appropriate) Musculoskeletal: No: Joint Stiffness, Joint Swelling Extremities: No: Cool, Cyanosis Integumentary: Yes: Incision (midline w/cydney). No: Jaundice, Rash Wound/Incision: Yes: Clean/Dry, Well Approximated, Cydney Intact, Open to air. No: Reddened Neurological: Yes: Alert, Oriented Labs: CBC, BMP 12/04/18 06:38 12/04/18 06:38 CMP Sodium 137 mmol/L (136-145) 12/04/18 06:38 Potassium 3.9 mmol/L (3.5-5.1) 12/04/18 06:38 Chloride 106 mmol/L (98-107) 12/04/18 06:38 Carbon Dioxide 24 mmol/L (21-32) 12/04/18 06:38 Anion Gap 7 MMOL/L (8-16) L 12/04/18 06:38 BUN 7.0 mg/dL (7-18) 12/04/18 06:38 Creatinine 0.7 mg/dL (0.55-1.3) 12/04/18 06:38 Est GFR (CKD-EPI)AfAm 110.82 12/04/18 06:38 Est GFR (CKD-EPI)NonAf 95.61 12/04/18 06:38 POC Glucometer 213 UNITS (80-120) 12/04/18 11:49 Random Glucose 239 mg/dL (74-106) H 12/04/18 06:38 Calcium 7.4 mg/dL (8.5-10.1) L 12/04/18 06:38 Phosphorus 2.2 mg/dL (2.5-4.9) L 12/04/18 06:38 Magnesium 2.1 mg/dL (1.8-2.4) 12/04/18 06:38 Total Bilirubin 0.6 mg/dL (0.2-1) 12/03/18 05:15 AST 12 U/L (15-37) L 12/03/18 05:15 ALT 12 U/L (13-61) L 12/03/18 05:15 Alkaline Phosphatase 48 U/L (45-117) 12/03/18 05:15 Creatine Kinase 224 U/L (26-308) 11/28/18 07:22 Creatine Kinase Index 0.7 % (0.0-5.0) 11/28/18 07:22 CK-MB (CK-2) 1.6 ng/mL (0.5-3.6) 11/28/18 07:22 Troponin I < 0.02 ng/ml (0.00-0.05) 11/28/18 07:22 Total Protein 4.3 g/dl (6.4-8.2) L 12/03/18 05:15 Albumin 1.8 g/dl (3.4-5.0) L 12/03/18 05:15 Problem List - Problems (1) Acute lower gastrointestinal hemorrhage Assessment/Plan: POD 4 s/p subtotal colectomy (distal ileum, ~1' from IC valve, to mid-sigmoid) for refractory LGIB, unable to localize on CTA doing well overall + bowel function, passing flatus incision with cydney c/d/i bowel sounds present but hypoactive, still with some tympany start clear liquids, advance as tolerated (diabetic, no carbonated drinks) pain minimal, managed with po meds OOB, ambulate with PT continue IS, pulm toilet getting one unit blood now trend labs GI/DVT prophylaxis f/u pathology from OR path from colonoscopy/EGD reviewed - ulcerations in cecum/TI with acute and chronic inflammation, crypt/villi changes, but no granulomatous changes Code(s): K92.2 - GASTROINTESTINAL HEMORRHAGE, UNSPECIFIED (2) Anemia due to acute blood loss Assessment/Plan: 1 unit PRBC today, see above Code(s): D62 - ACUTE POSTHEMORRHAGIC ANEMIA (3) Diabetes Assessment/Plan: FS with SSI can resume home meds when tolerating diabetic diet again Code(s): E11.9 - TYPE 2 DIABETES MELLITUS WITHOUT COMPLICATIONS Qualifiers: Qualified Code(s): E11.51 - Type 2 diabetes mellitus with diabetic peripheral angiopathy without gangrene; 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
--- NOTE | 2018-12-04 18:44 | PN ---
Progress Note (short form) - Note Progress Note: Path from EGD: H. pylori + Path from colon: small intestinal mucosa with ulceration, acute and chronic inflammation and villi architectural distortion. Negative for granulomatous inflammation. When acute issues are resolved, will need h. pylori Rx. Continue Protonix 20mg PO BID for now. Will discuss with pathology given vague description of the small bowel findings in the report. Problem List - Problems (1) GI bleed Code(s): K92.2 - GASTROINTESTINAL HEMORRHAGE, UNSPECIFIED Qualifiers: GI bleed type/associated pathology: unspecified gastrointestinal hemorrhage type Qualified Code(s): K92.2 - Gastrointestinal hemorrhage, unspecified
[2018-12-04] MEDS ORDERED: INSULIN (NOVOLOG) ASPART 100 UNITS/ML 10ML VIAL ONE (21:53)
[2018-12-05] MEDS: INSULIN SLIDING SCALE (NOVOLOG) 1 VIAL SQ SCH ×4 (06:33→22:50)
[2018-12-05 08:19] LABS: BASO % 0.2 % (0-2.0); EOS % 1.3 % (0-4.5); HEMATOCRIT 22.8 % (35.4-49); HEMOGLOBIN 7.7 GM/dL (11.7-16.9); LYMPH % 10.8 % (8-40); MCHC 33.9 g/dl (32.0-35.9); MEAN CELL VOLUME 88.4 fl (80-96); MEAN PLT VOLUME 7.6 fl (7.5-11.1); MONO % 6.4 % (3.8-10.2); NEUT % 81.3 % (42.8-82.8); PLATELET COUNT 323 K/MM3 (134-434); RBC 2.58 M/mm3 (4.00-5.60); RDW 14.8 % (11.9-15.9); WHITE BLOOD COUNT 15.9 K/mm3 (4.0-10.0)
[2018-12-05 08:26] LABS: INR 1.1 (0.83-1.09)
[2018-12-05 08:51] LABS: ALBUMIN 1.8 g/dl (3.4-5.0); BILIRUBIN,TOTAL 0.5 mg/dL (0.2-1); BLOOD UREA NITROGEN 5.8 mg/dL (7-18); CALCIUM 7.6 mg/dL (8.5-10.1); CREATININE 0.7 mg/dL (0.55-1.3); POTASSIUM 3.5 mmol/L (3.5-5.1); TOT PROT 4.4 g/dl (6.4-8.2)
--- NOTE | 2018-12-05 10:23 | PN ---
Progress Note, Physician Chief Complaint: gib History of Present Illness: 68yo male PMH HTN, HLD, PVD presents with with 3 episodes of BRBPR this morning. He states that he was in his normal state of health yesterday and having no problems. stable overnight since surgery. - Current Medication List Current Medications: Active Medications Acetaminophen (Tylenol -) 650 mg PO Q4H PRN PRN Reason: Pain Level 4 - 10 Last Admin: 12/04/18 05:50 Dose: 650 mg Benzocaine/Menthol (Cepacol Lozenge -) 1 each MM PRN PRN PRN Reason: SORE THROAT Diphenhydramine HCl (Benadryl Injection -) 12.5 mg IVPUSH ONCE PRN PRN Reason: FOR ITCHING Potassium Chloride 10 meq/ (Sodium Chloride) 1,005 mls @ 75 mls/hr IVPB Q13H [facility] Last Admin: 12/05/18 00:00 Dose: Not Given Insulin Aspart (Novolog Vial Sliding Scale -) 1 vial SQ [facility]; Protocol Last Admin: 12/05/18 06:33 Dose: Not Given Oxycodone HCl (Roxicodone -) 5 mg PO Q6H PRN PRN Reason: Pain level 7-10 BREAKTHROUGH Pantoprazole Sodium (Protonix Iv) 20 mg IVPUSH BID [facility] Last Admin: 12/04/18 21:48 Dose: 20 mg Potassium Phos/Sodium Phos (Phos-Nak Packet -) 2 packet PO BID [facility] Stop: 12/05/18 22:01 Last Admin: 12/04/18 21:47 Dose: 2 packet - Objective Vital Signs: Vital Signs Temperature 99.3 F 12/05/18 06:05 Pulse Rate 90 12/05/18 06:05 Respiratory Rate 19 12/05/18 06:05 Blood Pressure 135/64 12/05/18 06:05 O2 Sat by Pulse Oximetry (%) 98 12/04/18 21:00 Vital Signs Period Temp Pulse Resp BP Sys/Gallardo Pulse Ox Last 24 Hr 98.6 F-99.7 F 69-105 19-20 112-150/59-92 93-98 Intake & Output 12/06/18 12/06/18 12/06/18 07:59 15:59 23:59 Intake Total 470 Balance 470 Intake: Oral 470 Other: Voiding Method Toilet # Unmeasured Voids Lamb 2 Bowel Movement Yes # Bowel Movements 1 Constitutional: Yes: Well Nourished, No Distress, Calm Eyes: Yes: Conjunctiva Clear, EOM Intact HENT: Yes: Atraumatic, Normocephalic Neck: Yes: Supple, Trachea Midline Cardiovascular: Yes: Regular Rate and Rhythm, S1, S2 Respiratory: Yes: Regular, CTA Bilaterally Gastrointestinal: Yes: Normal Bowel Sounds, Soft. No: Distention, Tenderness ...Rectal Exam: Yes: Deferred Genitourinary: No: CVA Tenderness - Left, CVA Tenderness - Right Breast(s): No: Mass, Skin Changes Musculoskeletal: No: Muscle Pain, Muscle Weakness Extremities: No: Cool, Cyanosis Edema: No Peripheral Pulses WNL: Yes Peripheral Pulses: Left Radial: 2+, Right Radial: 2+, Left Doralis Pedis: 2+, Right Dorsalis Pedis: 2+, Left Femoral: 2+, Right Femoral: 2+ Integumentary: No: Bruising, Erythema, Incision Wound/Incision: Yes: Clean/Dry, Well Approximated, Jane Intact, Open to air Neurological: Yes: Alert, Oriented Psychiatric: Yes: Alert, Oriented Labs: CBC, BMP 12/05/18 07:15 12/05/18 07:15 INR, PTT INR 1.10 (0.83-1.09) H 12/05/18 07:15 Fibrinogen 138.0 mg/dL (238-498) L 11/30/18 08:25 Problem List - Problems (1) GI bleed Assessment/Plan: 68 yo male with MMP presented with LGIB is poorly localized suspected. Discussed all of the non-operative and operative available options with the family (, son, newphew) and patient. POD#5 s/p subtotal colectomy, no obvious continued GI bleeding noted. Diet as tolerated Physical therapy evaluation OOB to chair encourage IS discharge at the discretion of primary team Code(s): K92.2 - GASTROINTESTINAL HEMORRHAGE, UNSPECIFIED Qualifiers: GI bleed type/associated pathology: unspecified gastrointestinal hemorrhage type Qualified Code(s): K92.2 - Gastrointestinal hemorrhage, unspecified (2) Diabetes Code(s): E11.9 - TYPE 2 DIABETES MELLITUS WITHOUT COMPLICATIONS Qualifiers: Diabetes mellitus type: type 2 Diabetes mellitus termite treater insulin use: with termite treater use Diabetes mellitus complication status: with circulatory complication Diabetes mellitus complication detail: with peripheral angiopathy without gangrene Qualified Code(s): E11.51 - Type 2 diabetes mellitus with diabetic peripheral angiopathy without gangrene; Z79.4 - exterminator helper (current) use of insulin (3) HLD (hyperlipidemia) Code(s): E78.5 - HYPERLIPIDEMIA, UNSPECIFIED Qualifiers: Hyperlipidemia type: unspecified Qualified Code(s): E78.5 - Hyperlipidemia , unspecified (4) HTN (hypertension) Code(s): I10 - ESSENTIAL (PRIMARY) HYPERTENSION Qualifiers: Hypertension type: essential hypertension Qualified Code(s): I10 - Essential (primary) hypertension (5) Hypotension Code(s): I95.9 - HYPOTENSION, UNSPECIFIED (6) Syncope Code(s): R55 - SYNCOPE AND COLLAPSE
[2018-12-05] MEDS ORDERED: INSULIN (NOVOLOG) ASPART 100 UNITS/ML 10ML VIAL ONE (10:42)
[2018-12-05] MEDS: NAPH,MB-DB/K PH,MBDB POWDER PACKET PO SCH ×2 (10:50→22:51)
[2018-12-05] MEDS: PANTOPRAZOLE SODIUM 40 MG VIAL IVPUSH SCH (10:52)
[2018-12-05] MEDS: POTASSIUM CHLORIDE 10 MEQ in SODIUM CHLORIDE 0.45% 1,000 ML IVPB SCH ×3 (10:53→13:28)
--- NOTE | 2018-12-05 12:21 | PN ---
Physical Exam: SUBJECTIVE: Patient seen and examined, abdominal pain better, on clears, overall feels well. No other complaints. OBJECTIVE: Vital Signs Period Temp Pulse Resp BP Sys/Gallardo Pulse Ox Last 24 Hr 98.9 F-99.4 F 89-99 19-20 126-152/63-67 98 Intake & Output 12/02/18 12/03/18 12/04/18 12/05/18 23:59 23:59 23:59 23:59 Intake Total 2534 1350 2800 275 Output Total 2050 1725 1500 Balance 484 -375 1300 275 Weight 200 lb 3 oz 197 lb 5 oz 198 lb 197 lb 9 oz GENERAL: lying in bed in no acute distress Neck: left EJ noted, no stridor Chest: bibasilar rales, no wheezing Abdomen: soft, distended, improved incisional tenderness, no voluntary or involuntary guarding or rigidity, pos bowel sounds Extremities: no edema Psych: pleasant, co-operative Laboratory Results - last 24 hr 12/04/18 12/04/18 12/04/18 10:20 17:03 21:45 WBC RBC Hgb Hct MCV MCH MCHC RDW Plt Count MPV Absolute Neuts (auto) Neutrophils % Lymphocytes % Monocytes % Eosinophils % Basophils % Nucleated RBC % PT with INR INR Sodium Potassium Chloride Carbon Dioxide Anion Gap BUN Creatinine Est GFR (CKD-EPI)AfAm Est GFR (CKD-EPI)NonAf POC Glucometer 178 239 Random Glucose Calcium Total Bilirubin AST ALT Alkaline Phosphatase Total Protein Albumin TSH Blood Type O POSITIVE Antibody Screen Negative Crossmatch See Detail 12/05/18 12/05/18 12/05/18 06:29 07:15 07:15 WBC 15.9 H RBC 2.58 L Hgb 7.7 L Hct 22.8 L MCV 88.4 MCH 30.0 MCHC 33.9 RDW 14.8 Plt Count 323 MPV 7.6 Absolute Neuts (auto) 12.9 H Neutrophils % 81.3 Lymphocytes % 10.8 Monocytes % 6.4 Eosinophils % 1.3 D Basophils % 0.2 Nucleated RBC % 0 PT with INR INR Sodium 135 L Potassium 3.5 Chloride 102 Carbon Dioxide 26 Anion Gap 7 L BUN 5.8 L Creatinine 0.7 Est GFR (CKD-EPI)AfAm 110.82 Est GFR (CKD-EPI)NonAf 95.61 POC Glucometer 193 Random Glucose 185 H Calcium 7.6 L Total Bilirubin 0.5 AST 9 L ALT 11 L Alkaline Phosphatase 50 Total Protein 4.4 L Albumin 1.8 L TSH 2.05 Blood Type Antibody Screen Crossmatch 12/05/18 12/05/18 07:15 10:55 WBC RBC Hgb Hct MCV MCH MCHC RDW Plt Count MPV Absolute Neuts (auto) Neutrophils % Lymphocytes % Monocytes % Eosinophils % Basophils % Nucleated RBC % PT with INR 13.00 INR 1.10 H Sodium Potassium Chloride Carbon Dioxide Anion Gap BUN Creatinine Est GFR (CKD-EPI)AfAm Est GFR (CKD-EPI)NonAf POC Glucometer 253 Random Glucose Calcium Total Bilirubin AST ALT Alkaline Phosphatase Total Protein Albumin TSH Blood Type Antibody Screen Crossmatch Active Medications Generic Name Dose Route Start Last Admin Trade Name Freq PRN Reason Stop Dose Admin Acetaminophen 650 mg 12/03/18 21:27 12/04/18 05:50 Tylenol - PO 650 mg Q4H PRN Administration Pain Level 4 - 10 Amino Acids 30 ml 12/05/18 17:30 Prosource No Carb Liquid Pkt PO BID@0800,1730 [facility] Amoxicillin 1,000 mg 12/05/18 12:15 Amoxicillin - PO 12/19/18 12:14 BID [facility] Benzocaine/Menthol 1 each 12/03/18 21:27 Cepacol Lozenge - MM PRN PRN SORE THROAT Clarithromycin 500 mg 12/05/18 12:15 Biaxin - PO 12/19/18 12:14 BID [facility] Diphenhydramine HCl 12.5 mg 12/03/18 21:27 Benadryl Injection - IVPUSH ONCE PRN FOR ITCHING Potassium Chloride 10 meq/ 1,005 mls @ 75 mls/hr 12/04/18 11:00 12/05/18 10: 53 Sodium Chloride IVPB 75 mls/hr Q13H [facility] Administration Insulin Aspart 1 vial 12/03/18 22:00 12/05/18 10:56 Novolog Vial Sliding Scale - SQ 4 units ACHS [facility] Administration Protocol Oxycodone HCl 5 mg 12/03/18 21:27 Roxicodone - PO Q6H PRN Pain level 7-10 BREAKTHROUGH Pantoprazole Sodium 20 mg 12/05/18 22:00 Protonix - PO BID [facility] Potassium Phos/Sodium Phos 2 packet 12/04/18 10:00 12/05/18 10:50 Phos-Nak Packet - PO 12/05/18 22:01 1 packet BID [facility] Administration CT chest results reviewed ASSESSMENT/PLAN: 68 yom with PMHx of HTN, HLD, IDDM, PVD s/p toe amputation admitted with multiple episodes of BRBPR and syncope -Acute lower GI bleed, suspect diverticular vs ulcerative disease terminal ileum /ileocecal valve (as visible on colonoscopy, r/o IBD), s/p subtotal colectomy -Acute blood loss anemia -Syncope, from above -Fever, suspect ateletasis, resolved -LEft thyroid nodule/cyst with tracheal deviation -H. Pylori Gastritis -Hypophosphatemia -HTN -HLD -IDDM -PVD s/p toes amputation Plan: H/h better but not appropriate for 1 unit. Will tranfuse 1 more unit given vascular disease. Monitor vitals closely. Surgery input noted, on clears, tolerating well, advance per surgery. Fevers improved, encourage ambulation and incentive spirometry, monitor. Off Dilaudid PLASTER MIXER. TYlenol/oxycodone prn for pain, minimize narcotics. Persistent leucocytosis, monitor. GI input noted. Pathology results reviewed COntnue PPI BID. start amoxicillin/clarithromycin x 14 days. ENdocrine input for thyroid nodule. Check TSH/T4/T3. No stridor or respiratory concerns. Colonoscopy with moderate diverticulosis Hepatic flexure/bowel, also oozing ulcer/small vessel at ileocecal valve s/p epi/cautery and multiple ulcers terminal ileum. Biopsy noted, follow up with GI. CTA Abdomen/pelvis neg for bleed s/p subtotal colectomy 11/30 ISS, OFf IVF, change BGM to AC and HS. replete Phos prn. Resume anti-hypertensives based on hemodynamics and po intake DVTPPX No heparin given anemia and concerns for bleed.Encourage ambulation. SCDs PT eval noted, For SNF. Dispo pending clinical improvement. Plan discussed with patient and nursing, all questions answered. Visit type - Emergency Visit Emergency Visit: Yes ED Registration Date: 11/28/18 Care time: The patient presented to the Emergency Department on the above date and was hospitalized for further evaluation of their emergent condition. - New Patient This patient is new to me today: No - Critical Care Critical Care patient: No - Discharge Referral Referred to [facility] No
[2018-12-05] MEDS ORDERED: PT OWN MED DRAWER 7, Y5N ONE ×2 (13:31→21:53)
--- NOTE | 2018-12-05 13:57 | PATH ---
Surgical Pathology Report Patient Name: GUSTAVO CARVALHO I. [facility]. Rec. #: [id number] /Age/Gender: 1950 (Age: 68) / M Account: [id number] Location: [address] [place] [address]/[facility] Taken: 11/30/2018 Received: 12/02/2018 Reported: 12/05/2018 Physicians: Meet Naranjo M.D. Tyrese Plasencia M.D. Specimen(s) Received TERMINAL ILEUM, APPENDIX, ABDOMINAL COLON Clinical History Lower gastrointestinal bleed Final Diagnosis TERMINAL ILEUM, APPENDIX, ABDOMINAL COLON, SUBTOTAL COLECTOMY: TERMINAL ILEUM WITH ULCERATION, TWO FOCI, MEASURING 3 CM AND 3.5 CM IN GREATEST DIMENSION, RESPECTIVELY. CECUM WITH ULCERATION, 4 CM IN GREATEST DIMENSION. ACUTE INFLAMMATION, FIBRINOUS EXUDATE, AND MIXED CHRONIC INFLAMMATORY INFILTRATE SEEN IN THE AREAS OF ULCERATION. APPENDIX WITH NO SIGNIFICANT PATHOLOGIC CHANGE. VIABLE MARGINS. Comment: Negative for carcinoma. No histologic evidence of granulomatous inflammation. No viral inclusion or parasites identified. Suggest clinical correlation with microbiology study results. Selected slides sent for hematopathologic consultation to rule out lymphoproliferative disorder. An addendum report to follow. Electronically Signed Erin Mcneal M.D. Addendum Reported: 12/16/2018 Addendum Diagnosis Large intestine, cecum, resection (parts 4 and 6): Ulceration with granulation tissue, and acute and chronic inflammation. Reactive lymphoid aggregates. Microscopic Description: Sections 4 and 6 are received for review. There is mucosal ulceration with granulation tissue, acute inflammation, and chronic inflammation. In addition, there are underlying aggregates of lymphocytes. .In some areas, there is germinal center formation. The cellular components within the germinal centers are normal-appearing. There are also numerous scattered plasma cells. Immunohistochemical stains are performed on block 6 with appropriate controls. Stains for CD20 and CD3 show normal compartmentalization of B-cells and T-cells within the lymphoid aggregates. A stain for PAX-5 is similar to CD20. A stain for CD5 is similar to CD3. The occasional CD20+ germinal centers are additionally positive for CD10, while they are negative for BCL-2. A stain for BCL-6 highlights occasional dim-positive cells within the germinal centers, likely due to suboptimal cellular preservation. A stain for Cyclin-D1 is negative in lymphocytes. Stains for CD21 and CD23 highlight intact follicular dendritic meshworks. A stain for CD138 highlights numerous scattered plasma cells. In situ hybridization for Dunlap and Lambda light chains show the plasma cells to be polytypic. See [facility] report ([id number]) for additional details. Erin Mcneal M.D. Gross Description Received in formalin labeled "terminal ileum, appendix, abdominal colon," is a 15 cm in length portion of terminal ileum with an attached 85 cm in length portion of cecum and large bowel. The specimen displays 2 stapled mucosal margins and abundant attached pericolonic adipose tissue. There is a 3.5 cm in length vermiform appendix attached at the cecum. The mucosa displays a 4.0 x 3.8 cm area of erythema in the cecum, possibly consistent with an ulceration. There is a renner metallic clip marking the area of erythema. The terminal ileum displays 2 areas of flattened folds, consistent with areas of ulceration. The proximal terminal ileal area of ulceration measures 3.0 cm in greatest dimension. The distal terminal ileal area of ulceration measures 3.5 cm in greatest dimension. No mucosal masses are identified. Line Painting Machine Operator sections are submitted in 14 cassettes as follows: 1-proximal mucosal margin of resection; 2-distal mucosal margin of resection; 3-appendix; 9-6-ngzmxtte from possible ulceration from cecum(area of clip); 9-terminal ileum; 83-66-fwklbincgeqe submitted additional advertising account representative large bowel; 41-02-srqcxcai terminal ileal ulcer; 14-29-zydjje terminal ileal ulcer. 12/02/201812/02/2018
[2018-12-05] MEDS: AMOXICILLIN 500 MG CAPSULE (FP) PO SCH ×2 (14:06→22:50)
[2018-12-05] MEDS: CLARITHROMYCIN 500 MG TABLET (UD) PO SCH ×2 (14:07→22:50)
[2018-12-05 15:26] VITALS: BMI 31.8
[2018-12-05] MEDS: AMINO ACIDS/PROTEIN HYDROLYS 30 ML LIQUID.PKT PO SCH (16:38)
--- NOTE | 2018-12-05 17:57 | PN.GI ---
GI Progress Note Subjective: Family present at bedside. Daughter in law aided in translation No abdominal pain Had non blood BM today and was walking around the floor with PT No acute events overnight - Objective Vital Signs: Vital Signs Temperature 98.1 F 12/05/18 10:00 Pulse Rate 94 H 12/05/18 10:00 Respiratory Rate 12/05/18 10:00 Blood Pressure 152/65 12/05/18 10:00 O2 Sat by Pulse Oximetry (%) 93 L 12/05/18 09:00 Constitutional: Calm Eyes: No: Sclera Icterus Cardiovascular: Yes: Regular Rate and Rhythm. No: Murmur Respiratory: Yes: CTA Bilaterally Gastrointestinal Inspection: Yes: Scars (+ midline vertical surgical scar with cydney in place. Mild TTP along incisional site.). No: Distention ...Auscultate: Yes: Normoactive Bowel Sounds ...Palpate: Yes: Soft. No: Tenderness ...Percussion: No: Tympanitic Edema: No (No LE edema) Neurological: Yes: Alert, Oriented Labs: CBC, BMP 12/05/18 07:15 12/05/18 07:15 INR, PTT INR 1.10 (0.83-1.09) H 12/05/18 07:15 Fibrinogen 138.0 mg/dL (238-498) L 11/30/18 08:25 Problem List - Problems (1) GI bleed Assessment/Plan: S/P subtotal colectomy with sparing of portion of the sigmoid. Biopsies of the IC Valve and TI from colonoscopy revealed non specific inflammatory changes. ? NSAID induced changes. No overt bleeding Post op care per surgery Code(s): K92.2 - GASTROINTESTINAL HEMORRHAGE, UNSPECIFIED Qualifiers: GI bleed type/associated pathology: unspecified gastrointestinal hemorrhage type Qualified Code(s): K92.2 - Gastrointestinal hemorrhage, unspecified (2) Helicobacter pylori [H. pylori] as the cause of diseases classified elsewhere Assessment/Plan: H. Pylori + from EGD biopsies Continue protonix 20mg PO BID for now H. Pylori Rx when acute issues resolved as outpatient. Discussed with patient and his family this evening Code(s): B96.81 - HELICOBACTER PYLORI THE [facility]ES [facility]
[2018-12-05] MEDS: PANTOPRAZOLE 20 MG TABLET (FP) PO SCH (22:51)
[2018-12-06] MEDS: POTASSIUM CHLORIDE 10 MEQ in SODIUM CHLORIDE 0.45% 1,000 ML IVPB SCH ×3 (04:37→16:53)
[2018-12-06] MEDS: INSULIN SLIDING SCALE (NOVOLOG) 1 VIAL SQ SCH ×4 (06:18→22:02)
[2018-12-06] MEDS: AMINO ACIDS/PROTEIN HYDROLYS 30 ML LIQUID.PKT PO SCH ×2 (09:17→16:55)
[2018-12-06] MEDS: PANTOPRAZOLE 20 MG TABLET (FP) PO SCH ×2 (09:19→21:58)
[2018-12-06] MEDS ORDERED: PT OWN MED DRAWER 7, Y5N ONE (09:19)
[2018-12-06] MEDS: AMOXICILLIN 500 MG CAPSULE (FP) PO SCH ×2 (09:20→21:58)
[2018-12-06] MEDS: CLARITHROMYCIN 500 MG TABLET (UD) PO SCH ×2 (09:20→21:58)
[2018-12-06] MEDS ORDERED: INSULIN (NOVOLOG) ASPART 100 UNITS/ML 10ML VIAL ONE (11:17)
--- NOTE | 2018-12-06 11:52 | PN ---
Physical Exam: SUBJECTIVE: Patient seen and examined, feels much better, pain improved. no fevers, chills or concerns. OBJECTIVE: Vital Signs Period Temp Pulse Resp BP Sys/Gallardo Pulse Ox Last 24 Hr 98.8 F-99.7 F 91-98 19-20 139-150/63-92 93 Intake & Output 12/03/18 12/04/18 12/05/18 12/06/18 23:59 23:59 23:59 23:59 Intake Total 1350 2800 595 245 Output Total 1725 1500 Balance -375 1300 595 245 Weight 197 lb 5 oz 198 lb 197 lb 9 oz GENERAL:sitting in bed, no acute distress Chest: improved basilar rales, good air entry Neck: soft,supple, no JVD Abdomen:soft, improved incisional tenderness, no voluntary or involuntary guarding or rigidity, pos bowel sounds Extremities: no edema Neck: soft,supple, no stridor noted Laboratory Results - last 24 hr 12/04/18 12/05/18 12/05/18 10:20 16:36 16:36 POC Glucometer 207 218 Blood Type O POSITIVE Antibody Screen Negative Crossmatch See Detail 12/05/18 12/06/18 12/06/18 22:49 06:18 11:34 POC Glucometer 219 222 311 Blood Type Antibody Screen Crossmatch Active Medications Generic Name Dose Route Start Last Admin Trade Name Freq PRN Reason Stop Dose Admin Acetaminophen 650 mg 12/03/18 21:27 12/04/18 05:50 Tylenol - PO 650 mg Q4H PRN Administration Pain Level 4 - 10 Amino Acids 30 ml 12/05/18 17:30 12/06/18 09:17 Prosource No Carb Liquid Pkt PO 30 ml BID@0800,1730 TAVO Administration Amoxicillin 1,000 mg 12/05/18 13:00 12/06/18 09:20 Amoxicillin - PO 12/19/18 12:59 1,000 mg BID TAVO Administration Benzocaine/Menthol 1 each 12/03/18 21:27 Cepacol Lozenge - MM PRN PRN SORE THROAT Clarithromycin 500 mg 12/05/18 13:00 12/06/18 09:20 Biaxin - PO 12/19/18 12:59 500 mg BID T[facility]O Administration Diphenhydramine HCl 12.5 mg 06/25/19 21:27 Benadryl Injection - IVPUSH ONCE PRN FOR ITCHING Potassium Chloride 10 meq/ 1,005 mls @ 75 mls/hr 12/04/18 11:00 12/06/18 11: 38 Sodium Chloride IVPB 75 mls/hr Q13H [facility] Administration Insulin Aspart 1 vial 12/03/18 22:00 12/06/18 11:35 Novolog Vial Sliding Scale - SQ 6 units ACHS [facility] Administration Protocol Oxycodone HCl 5 mg 12/03/18 21:27 Roxicodone - PO Q6H PRN Pain level 7-10 BREAKTHROUGH Pantoprazole Sodium 20 mg 12/05/18 22:00 12/06/18 09:19 Protonix - PO 20 mg BID [facility] Administration ASSESSMENT/PLAN: 68 yom with PMHx of HTN, HLD, IDDM, PVD s/p toe amputation admitted with multiple episodes of BRBPR and syncope -Acute lower GI bleed, suspect diverticular vs ulcerative disease terminal ileum /ileocecal valve (as visible on colonoscopy, r/o IBD), s/p subtotal colectomy -Acute blood loss anemia -Syncope, from above -Fever, suspect ateletasis, resolved -LEft thyroid nodule/cyst with tracheal deviation -H. Pylori Gastritis -Hypophosphatemia -HTN -HLD -IDDM -PVD s/p toes amputation Plan: follow up CBC today. Markedly improved, tolerating diet well. Surgery input noted. Afebrile, incentive spirometry. GI input noted, PPI BID Amoxicillin/Clarithromycin day 2/14. Needs endocrine input for thyroid nodule, no stridor or respiratory concerns. TSH WNL. FOllow up T4. TYlenol/oxycodone prn for pain, minimize narcotics. Persistent leucocytosis, monitor. Colonoscopy with moderate diverticulosis Hepatic flexure/bowel, also oozing ulcer/small vessel at ileocecal valve s/p epi/cautery and multiple ulcers terminal ileum. Biopsy results noted, ulcerations CTA Abdomen/pelvis neg for bleed s/p subtotal colectomy 11/30 ISS, Off IVF, BGM to AC and HS. Start levemir 10 units hs. Resume statin. Start toprol XL 50 mg daily Per pharmacy, no meds filled since 05/2018, confirm with patient. replete Phos prn. DVTPPX No heparin given anemia and concerns for bleed.Encourage ambulation. SCDs Resume ASA per surgery and CBC. PT eval noted, For SNF. Dispo SNF in 24 hours if clinically improved and disposition arranged. Plan discussed with patient and nursing, all questions answered. Visit type - Emergency Visit Emergency Visit: Yes ED Registration Date: 11/28/18 Care time: The patient presented to the Emergency Department on the above date and was hospitalized for further evaluation of their emergent condition. - New Patient This patient is new to me today: No - Critical Care Critical Care patient: No - Discharge Referral Referred to [facility] No
[2018-12-06 12:48] LABS: BASO % 0.2 % (0-2.0); EOS % 1.7 % (0-4.5); HEMATOCRIT 26.7 % (35.4-49); HEMOGLOBIN 9.2 GM/dL (11.7-16.9); MCH 30.4 pg (25.7-33.7); MCHC 34.4 g/dl (32.0-35.9); MEAN CELL VOLUME 88.4 fl (80-96); MEAN PLT VOLUME 7.7 fl (7.5-11.1); MONO % 5.7 % (3.8-10.2); NEUT % 83.4 % (42.8-82.8); PLATELET COUNT 398 K/MM3 (134-434); RBC 3.02 M/mm3 (4.00-5.60); RDW 14.6 % (11.9-15.9); WHITE BLOOD COUNT 10.8 K/mm3 (4.0-10.0)
--- NOTE | 2018-12-06 14:01 | CONSULT ---
Consult Consult Specialty:: endocrine Referred by:: milana lewis MD Reason for Consultation:: diabetes mellitus uncontrolled - History of Present Illness Chief Complaint: high sugars History of Present Illness: 68 year old male pmh dm2,htn,hld, who presented with BRBPR .sp colectomy post op , continues with decrease po intake denies nausea vomiting or diarhea,has limited intake yet no pain.blood sugars labile from stress illness.ct scan demonstrates left lobe large thyroid nodule. he denies neck pain or dysphagia. - Past Medical History Cardio/Vascular: Yes: HTN, Hyperlipdemia, Other (PVD) Endocrine: Yes: Diabetes Mellitus - Past Surgical History Past Surgical History: Yes: Amputation (Left 5th toe, Right great toe amputations) Additional Surgical History: Describes LE angioplasties - Alcohol/Substance Use Hx Alcohol Use: Yes (social) History of Substance Use: reports: None - Smoking History Smoking history: Never smoked - Social History Usual Living Arrangement: With Spouse ADL: Independent History of Recent Travel: No Home Medications - Allergies Allergies/Adverse Reactions: Allergies Allergy/AdvReac Type Severity Reaction Status Date / Time No Known Allergies Allergy Verified 11/28/18 06:53 - Home Medications Home Medications: Ambulatory Orders Aspirin [Baby Aspirin] 81 mg PO DAILY 10/15/13 Insulin Glargine,Hum.rec.anlog [Lantus] 1 unit SQ ASDIR cartridge 10/15/13 Metformin HCl 1,000 mg PO BID #60 tablet 10/15/13 Simvastatin [Zocor] 20 mg PO DAILY tablet 10/15/13 Amlodipine Besylate [Norvasc -] 10 mg PO DAILY 12/06/18 Lisinopril [Prinivil -] 40 mg PO DAILY 12/06/18 Metoprolol Succinate [Toprol Xl] 100 mg PO 12/06/18 Family Disease History - Family Disease History Family Disease History: Other: Father (Alive: healthy), Mother (Alive: DM II), Brother (2, healthy), Sister (1, healthy), Son (3, healthy), Daughter (5, healthy) Other Family History: No family history of colorectal cancer or other GI malignancy Review of Systems - Review of Systems Constitutional: reports: Weakness Eyes: reports: No Symptoms HENT: reports: No Symptoms Neck: reports: No Symptoms Cardiovascular: reports: Shortness of Breath Respiratory: reports: Exercise Intolerance, SOB on Exertion Gastrointestinal: reports: No Symptoms Genitourinary: reports: No Symptoms Musculoskeletal: reports: No Symptoms Neurological: reports: No Symptoms Endocrine: reports: Unexplained Weight Loss Physical Exam Vital Signs: Vital Signs Temperature 98.8 F 12/06/18 06:44 Pulse Rate 91 H 12/06/18 06:44 Respiratory Rate 20 12/06/18 06:44 Blood Pressure 144/63 12/06/18 06:44 O2 Sat by Pulse Oximetry (%) 93 L 12/05/18 21:00 Constitutional: Yes: Anxious Eyes: Yes: EOM Intact HENT: Yes: Normocephalic Neck: Yes: Thyromegaly, Other (left lobe nodule) Respiratory: Yes: CTA Bilaterally Gastrointestinal: Yes: Normal Bowel Sounds, Soft ...Rectal Exam: Yes: Deferred Renal/: Yes: WNL Breast(s): Yes: WNL Musculoskeletal: Yes: WNL Extremities: Yes: WNL Edema: No Wound/Incision: Yes: Clean/Dry Neurological: Yes: Alert, Oriented Labs: CBC, BMP 12/06/18 12:25 12/05/18 07:15 Assessment/Plan Current Active Problems THYROID NODULE INCIDENTAL LEFT LOBE Acute lower gastrointestinal hemorrhage (Acute) Anemia due to acute blood loss (Acute) Diabetes (Acute) GI bleed (Acute) HLD (hyperlipidemia) (Acute) HTN (hypertension) (Acute) Helicobacter pylori [H. pylori] as the cause of diseases classified elsewhere ( Acute) Hypotension (Acute) Syncope (Acute) Abnormal Lab Results 12/04/18 12/06/18 10:20 12:25 WBC 10.8 H RBC 3.02 L Hgb 9.2 L Hct 26.7 L D Absolute Neuts (auto) 9.0 H Neutrophils % 83.4 H Crossmatch See Detail Laboratory Results - last 24 hr 12/04/18 12/05/18 12/05/18 10:20 16:36 16:36 WBC RBC Hgb Hct MCV MCH MCHC RDW Plt Count MPV Absolute Neuts (auto) Neutrophils % Lymphocytes % Monocytes % Eosinophils % Basophils % Nucleated RBC % POC Glucometer 207 218 Blood Type O POSITIVE Antibody Screen Negative Crossmatch See Detail 12/05/18 12/06/18 12/06/18 22:49 06:18 11:34 WBC RBC Hgb Hct MCV MCH MCHC RDW Plt Count MPV Absolute Neuts (auto) Neutrophils % Lymphocytes % Monocytes % Eosinophils % Basophils % Nucleated RBC % POC Glucometer 219 222 311 Blood Type Antibody Screen Crossmatch 12/06/18 12:25 WBC 10.8 H RBC 3.02 L Hgb 9.2 L Hct 26.7 L D MCV 88.4 MCH 30.4 MCHC 34.4 RDW 14.6 Plt Count 398 D MPV 7.7 Absolute Neuts (auto) 9.0 H Neutrophils % 83.4 H Lymphocytes % 9.0 Monocytes % 5.7 Eosinophils % 1.7 Basophils % 0.2 Nucleated RBC % 0 POC Glucometer Blood Type Antibody Screen Crossmatch Laboratory Tests 12/05/18 07:15 TSH 2.05 PLAN: THYROID SONOGRAM AND FNA CONTINUE BGM COVERAGE ACHS LEVEMIR 15 UNITS BID HBA1C
--- NOTE | 2018-12-06 16:16 | DS ---
Physical Exam: SUBJECTIVE: Patient seen and examined OBJECTIVE: Vital Signs Period Temp Pulse Resp BP Sys/Gallardo Pulse Ox Last 24 Hr 98.6 F-99.7 F 69-105 19-20 112-150/59-92 93-98 PHYSICAL EXAM GENERAL:sitting in bed, no acute distress Chest: improved basilar rales, good air entry Neck: soft,supple, no JVD Abdomen:soft, improved incisional tenderness, no voluntary or involuntary guarding or rigidity, pos bowel sounds Extremities: no edema Neck: soft,supple, no stridor noted LABS Laboratory Results - last 24 hr 12/04/18 12/05/18 12/05/18 10:20 16:36 16:36 WBC RBC Hgb Hct MCV MCH MCHC RDW Plt Count MPV Absolute Neuts (auto) Neutrophils % Lymphocytes % Monocytes % Eosinophils % Basophils % Nucleated RBC % POC Glucometer 207 218 Blood Type O POSITIVE Antibody Screen Negative Crossmatch See Detail 12/05/18 12/06/18 12/06/18 22:49 06:18 11:34 WBC RBC Hgb Hct MCV MCH MCHC RDW Plt Count MPV Absolute Neuts (auto) Neutrophils % Lymphocytes % Monocytes % Eosinophils % Basophils % Nucleated RBC % POC Glucometer 219 222 311 Blood Type Antibody Screen Crossmatch 12/06/18 12:25 WBC 10.8 H RBC 3.02 L Hgb 9.2 L Hct 26.7 L D MCV 88.4 MCH 30.4 MCHC 34.4 RDW 14.6 Plt Count 398 D MPV 7.7 Absolute Neuts (auto) 9.0 H Neutrophils % 83.4 H Lymphocytes % 9.0 Monocytes % 5.7 Eosinophils % 1.7 Basophils % 0.2 Nucleated RBC % 0 POC Glucometer Blood Type Antibody Screen Crossmatch CT head 11/28: IMPRESSION: Moderate atrophy and mild periventricular chronic microvascular ischemic disease changes. No CT evidence of acute intracranial pathology is identified CTA 11/30 Impression: No definite bleeding site is identified. Mildly hyperdense fluid is again noted within the colon probably representing blood. Interval development of a small amount of pelvic free fluid is seen CT chest 12/04: Impression: An approximately 6 x 3.6 x 3.3 cm left thyroid lobe nodule/cyst is seen with resultant contralateral tracheal deviation. Correlation with sonography is suggested. Very small bilateral pleural effusions have developed in comparison to an abdomen CT study of 2018. Interval development of a small amount of perihepatic free peritoneal fluid is seen. Surgical skin jane are now visualized in place along the midline of the partially imaged upper abdomen. Mild bibasilar discoid atelectasis is noted which appears mildly increased. Prominent atherosclerotic coronary artery calcifications are visualized. Correlate with clinical risk factors. The main pulmonary artery diameter appears borderline measuring 3 cm which could be on the basis of increased pulmonary arterial pressure. Follow-up evaluation as clinically indicated. 0.4 cm and 0.2 cm left upper lobe noncalcified pulmonary nodule is seen which are of unlikely clinical significance. Correlate with 3 month follow- up CT. A small calcified left lower lobe pulmonary granuloma is noted. HOSPITAL COURSE: Date of Admission:11/28/18 Date of Discharge: 12/06/18 Minutes to complete discharge: 45 Discharge Summary Reason For Visit: GASTROINTESTINAL HEMORRHAGE Current Active Problems Acute lower gastrointestinal hemorrhage (Acute) Anemia due to acute blood loss (Acute) Diabetes (Acute) GI bleed (Acute) HLD (hyperlipidemia) (Acute) HTN (hypertension) (Acute) Helicobacter pylori [H. pylori] as the cause of diseases classified elsewhere ( Acute) Hypotension (Acute) Syncope (Acute) Hospital Course: 68 yom with PMHx of HTN, HLD, IDDM, PVD s/p toe amputation admitted with multiple episodes of BRBPR and syncope. Patient was monitored in ICU, received multiple units of blood. Gastroenterology was consulted and he had EGD showing with normal esophageal mucosa, single 5 mm clean based ulcer in distal body/ proximal antrum, likely NSAID induced, multiple small erosions in prepyloric region of stomach. He had Colonoscopy with 4 mm sessile polyp in rectum, moderate diverticulosis in hepatic flexure and distal right colon and ulcerated abnormal appearing ileocecal valve with adjacent area oozing blood/small vessel s/p endocrip and epinephrine injection, multiple non bleeding ulcers in terminal ileum and medium internal haemorrhoids. Given no clear etiology for his ongoing brisk bleeding, surgery was consulted and he had exploratory laparotomy and subtotal colectmy on 11/30/2018. His post operative course was uneventful, diet was advanced and he is cleared for discharge from surgical standpoint with outpatient follow up His EGD biopsies were positive for H. pylori and he is started on 14 day course of amoxicillin and clarithromycin. He will be continued on his protonix 20 mg BID. His colonoscopy biopsy showed multiple ulcerations. His QFT was neg and he will need outpatient GI follow up. He was incidentally found with thyroid nodule with tracheal deviation on his CT chest. He had no stridor and respiratory status was stable. Endocrine was consulted and he will need outpatient thyroid ultrasound and FNA. His anti-hypertensives were held, he is resumed back on his toprol XL currently and his amlodipine and lisinopril will need to be resumed outpatient based on his blood pressure readings. Also noted with incidental pulmonary nodule that will need [address] chest. He will be discharged to SNF in stable condition with outpatient GI, surgery, endocrine and pulmonary follow up. Condition: Stable - Instructions Diet, Activity, Other Instructions: SURGICAL INSTRUCTIONS: Postoperative instructions: You had a subtotal colectomy on DATE by Dr. Meet Naranjo of [facility]. Activity: Resume your usual activities gradually, but no heavy exertion or lifting more than 10-15 pounds for 4-6 weeks. Remove dressings 48 hours after surgery, if they are not already off. You may shower daily starting then, just pat the incision areas dry. No bath or swimming until skin incisions have healed. Jane should not need to be recovered with any dressings, unless you have been told otherwise. Eat lightly at first, but advance to your usual diet as tolerated. Pain: For pain, you are prescribed a Tylenol/narcotic combination for severe pain, use it instead of plain Tylenol as needed and switch back when your pain starts decreasing. Do not take more than 4000 mg of acetaminophen in a day. Take medications as prescribed or indicated on the labeling. Follow-up: Call Dr. Naranjo' office at [phone] to make your postop appointment (Sunday in approximately 2 weeks after surgery as advised). Clinic is held in the [facility] on the first floor of [facility]. Call the office if you have: * increasing pain not responsive to pain medication * fever of 101F or higher * vomiting * unusual or increasing bleeding or drainage from wounds * increasing redness or swelling at wound sites * inability to urinate Also, see your primary medical doctor within 1-2 weeks. MEDICAL INSTRUCTIONS: Medications: Do not take ASA till further instructed by your surgeon. Continue other medications as listed on your discharge papers. Continue protonix 20 mg twice daily for now. Antibiotics amoxicillin and clarithromycin for additional 12 days till 2018 (total 2 weeks course) Your BP medications will need to be adjusted based on your BP readings. Start with toprol XL 100 mg daily. Amlodipine and lisinopril can be resumed later based on BP readings by your doctor. levemir 15 units daily and sliding scale at the facility and titrate per your doctor. DO NOT TAKE NSAIDS INCLUDING MOTRIN, IBUPROFEN ETC OR ANY BLOOD THINNERS WITHOUT DISCUSSION WITH YOUR DOCTOR. FOLLOW UP: CBC in 1 week YOU WILL NEED OUTPATIENT THYROID ULTRASOUND AND FNA (FINE NEEDLE ASPIRATION). PLEASE FOLLOW UP WITH ENDOCRINE DR. ROBERTS IN 1-2 WEEKS TO DISCUSS FURTHER TEST [address] CHEST TO ASSESS LUNG NODULE. PLEASE DISCUSS WITH YOUR DOCTOR . PCP follow up in 1 week of discharge from rehab Service Line Layer follow up with in 2 weeks In addition to symptoms mentioned above, if you notice any fevers, chills, neck swelliing, inability to breathe, or any new concerns, please call 911 or come to the ED rightaway Referrals: Suman Coe DO [Staff Physician] - Meet Naranjo MD [Staff Physician] - Maurice Jackson MD [Primary Care Provider] - Rigoberto Roberts MD [Staff Physician] - Disposition: LONG-TERM FACILITY - Home Medications Comprehensive Discharge Medication List: Ambulatory Orders Simvastatin [Zocor] 20 mg PO DAILY tablet 10/15/13 Acetaminophen [Tylenol .Regular Strength -] 650 mg PO Q4H PRN tablet 12/06/18 Amino Acids/Protein Hydrolys [Prosource No Carb Liquid Pkt] 30 ml PO BID@0800, 1730 packet 12/06/18 Amoxicillin - [Amoxicillin 500mg Capsule -] 1,000 mg PO BID 12 Days #25 capsule 12/06/18 Clarithromycin [Biaxin -] 500 mg PO BID 12 Days #25 tablet 12/06/18 Insulin (Levemir) [Levemir Vial] 15 units SQ DAILY@0700 units 12/06/18 Insulin Sliding Scale [Novolog Vial Sliding Scale -] 1 vial SQ ACHS units 12/06 Metoprolol Succinate [Toprol Xl] 100 mg PO DAILY 12/06/18 Pantoprazole Sodium [Protonix -] 20 mg PO BID tablet.ec 12/06/18 oxyCODONE HCL [Roxicodone -] 5 mg PO TID PRN #10 tablet MDD 15 MG 12/06/18 This patient is new to me today: No Emergency Visit: Yes ED Registration Date: 11/28/18 Care time: The patient presented to the Emergency Department on the above date and was hospitalized for further evaluation of their emergent condition. Critical Care patient: No - Discharge Referral Referred to [facility] Med P.C.: No
[2018-12-06] MEDS: ATORVASTATIN CA 10 MG TABLET (FP) PO SCH (21:58)
[2018-12-06] MEDS ORDERED: INSULIN (LEVEMIR) 100 UNITS/ML UNITS SQ SCH (22:00)
[2018-12-06] MEDS: INSULIN (LEVEMIR) 100 UNITS/ML UNITS SQ SCH (22:01)
[2018-12-07] MEDS ORDERED: INSULIN (LEVEMIR) 100 UNITS/ML UNITS SQ SCH (07:00)
[2018-12-07 07:37] LABS: BASO % 0.6 % (0-2.0); EOS % 2.6 % (0-4.5); HEMATOCRIT 28.4 % (35.4-49); HEMOGLOBIN 9.6 GM/dL (11.7-16.9); LYMPH % 14.6 % (8-40); MCH 29.7 pg (25.7-33.7); MCHC 33.7 g/dl (32.0-35.9); MEAN PLT VOLUME 7.6 fl (7.5-11.1); MONO % 10.7 % (3.8-10.2); NEUT % 71.5 % (42.8-82.8); PLATELET COUNT 469 K/MM3 (134-434); RBC 3.22 M/mm3 (4.00-5.60); RDW 14.7 % (11.9-15.9); WHITE BLOOD COUNT 8.8 K/mm3 (4.0-10.0)
[2018-12-07] MEDS ORDERED: PT OWN MED DRAWER 7, Y5N ONE ×2 (09:02→21:11)
[2018-12-07] MEDS: AMINO ACIDS/PROTEIN HYDROLYS 30 ML LIQUID.PKT PO SCH ×2 (09:06→16:56)
[2018-12-07] MEDS: CLARITHROMYCIN 500 MG TABLET (UD) PO SCH ×2 (09:09→21:15)
[2018-12-07] MEDS: PANTOPRAZOLE 20 MG TABLET (FP) PO SCH ×2 (09:10→21:21)
[2018-12-07] MEDS: AMOXICILLIN 500 MG CAPSULE (FP) PO SCH ×2 (09:10→21:16)
[2018-12-07] MEDS ORDERED: INSULIN (NOVOLOG) ASPART 100 UNITS/ML 10ML VIAL ONE ×2 (11:38→21:10)
[2018-12-07] MEDS: INSULIN SLIDING SCALE (NOVOLOG) 1 VIAL SQ SCH ×3 (11:39→21:19)
--- NOTE | 2018-12-07 14:43 | PN ---
Physical Exam: SUBJECTIVE: Patient seen and examined, no complaints, eating well. OBJECTIVE: Vital Signs Period Temp Pulse Resp BP Sys/Gallardo Pulse Ox Last 24 Hr 97.7 F-98.8 F 69-90 15-20 129-159/62-71 98-98 Intake & Output 12/04/18 12/05/18 12/06/18 12/07/18 23:59 23:59 23:59 23:59 Intake Total 2800 595 1370 240 Output Total 1500 Balance 9884 496 2060 240 Weight 198 lb 197 lb 9 oz 175 lb 6.4 oz GENERAL:sitting in bed, no acute distress Chest: no rales appreciated today, pos air entry Neck: soft,supple, no JVD Abdomen:soft, improved incisional tenderness, no voluntary or involuntary guarding or rigidity, pos bowel sounds Extremities: no edema Neck: soft,supple, no stridor noted Laboratory Results - last 24 hr 12/04/18 12/06/18 12/06/18 10:20 16:48 22:01 WBC RBC Hgb Hct MCV MCH MCHC RDW Plt Count MPV Absolute Neuts (auto) Neutrophils % Lymphocytes % Monocytes % Eosinophils % Basophils % Nucleated RBC % POC Glucometer 225 266 Hemoglobin A1c % Blood Type O POSITIVE Antibody Screen Negative Crossmatch See Detail 12/07/18 12/07/18 12/07/18 06:50 06:50 07:47 WBC 8.8 RBC 3.22 L Hgb 9.6 L Hct 28.4 L MCV 88.0 MCH 29.7 MCHC 33.7 RDW 14.7 Plt Count 469 H MPV 7.6 Absolute Neuts (auto) 6.3 Neutrophils % 71.5 Lymphocytes % 14.6 D Monocytes % 10.7 H D Eosinophils % 2.6 Basophils % 0.6 Nucleated RBC % 0 POC Glucometer 111 Hemoglobin A1c % 6.6 H Blood Type Antibody Screen Crossmatch 12/07/18 11:19 WBC RBC Hgb Hct MCV MCH MCHC RDW Plt Count MPV Absolute Neuts (auto) Neutrophils % Lymphocytes % Monocytes % Eosinophils % Basophils % Nucleated RBC % POC Glucometer 206 Hemoglobin A1c % Blood Type Antibody Screen Crossmatch Active Medications Generic Name Dose Route Start Last Admin Trade Name Freq PRN Reason Stop Dose Admin Acetaminophen 650 mg 12/03/18 21:27 12/04/18 05:50 Tylenol - PO 650 mg Q4H PRN Administration Pain Level 4 - 10 Amino Acids 30 ml 12/05/18 17:30 12/07/18 09:06 Prosource No Carb Liquid Pkt PO 30 ml BID@0800,1730 TAVO Administration Amoxicillin 1,000 mg 12/05/18 13:00 12/07/18 09:10 Amoxicillin - PO 12/19/18 12:59 1,000 mg BID TAVO Administration Atorvastatin Calcium 10 mg 12/06/18 22:00 12/06/18 21:58 Lipitor - PO 10 mg HS TAVO Administration Benzocaine/Menthol 1 each 12/03/18 21:27 Cepacol Lozenge - MM PRN PRN SORE THROAT Clarithromycin 500 mg 12/05/18 13:00 12/07/18 09:09 Biaxin - PO 12/19/18 12:59 500 mg BID TAVO Administration Diphenhydramine HCl 12.5 mg 12/03/18 21:27 Benadryl Injection - IVPUSH ONCE PRN FOR ITCHING Insulin Aspart 1 vial 12/03/18 22:00 12/07/18 11:39 Novolog Vial Sliding Scale - SQ 2 units ACHS [facility] Administration Protocol Insulin Detemir 15 units 12/06/18 22:00 12/06/18 22:01 Levemir Vial SQ 15 units HS TAVO Administration Insulin Detemir 15 units 12/07/18 07:00 Levemir Vial SQ DAILY@0700 [facility] Metoprolol Succinate 50 mg 12/06/18 12:00 12/07/18 09:11 Toprol Xl - PO 50 mg DAILY TAVO Administration Pantoprazole Sodium 20 mg 12/05/18 22:00 12/07/18 09:10 Protonix - PO 20 mg BID TAVO Administration ASSESSMENT/PLAN: 68 yom with PMHx of HTN, HLD, IDDM, PVD s/p toe amputation admitted with multiple episodes of BRBPR and syncope -Acute lower GI bleed, suspect diverticular vs ulcerative disease terminal ileum /ileocecal valve (as visible on colonoscopy, r/o IBD), s/p subtotal colectomy -Acute blood loss anemia -Syncope, from above -Fever, suspect ateletasis, resolved -Left thyroid nodule/cyst with tracheal deviation -H. Pylori Gastritis -Hypophosphatemia -HTN -HLD -IDDM -PVD s/p toes amputation Plan: Doing well, h/h stable Cleared by surgery for dc GI input noted Continue H. pylori regimen Outpatient follow up. Endocrine input noted Outpatient thyroid US/FNA Levemir increased, A1c noted Toprol XL 50 mg daily., resume meds based on BP readings Incentive spirometry, OOB, PT Medically ready for dc Await SNF bed/insurance authorization Plan discussed with patient and nursing. Visit type - Emergency Visit Emergency Visit: Yes ED Registration Date: 11/28/18 Care time: The patient presented to the Emergency Department on the above date and was hospitalized for further evaluation of their emergent condition. - New Patient This patient is new to me today: No - Critical Care Critical Care patient: No - Discharge Referral Referred to [facility] Med P.C.: No
[2018-12-07] MEDS: INSULIN (LEVEMIR) 100 UNITS/ML UNITS SQ SCH (21:16)
[2018-12-07] MEDS: ATORVASTATIN CA 10 MG TABLET (FP) PO SCH (21:16)
--- NOTE | 2018-12-07 21:57 | PN ---
Progress Note, Physician Chief Complaint: gib History of Present Illness: 68yo male PMH HTN, HLD, PVD presents with with 3 episodes of BRBPR this morning. He states that he was in his normal state of health yesterday and having no problems. stable overnight since surgery. - Current Medication List Current Medications: Active Medications Acetaminophen (Tylenol -) 650 mg PO Q4H PRN PRN Reason: Pain Level 4 - 10 Last Admin: 12/04/18 05:50 Dose: 650 mg Amino Acids (Prosource No Carb Liquid Pkt) 30 ml PO BID@0800,1730 [facility] Last Admin: 12/07/18 16:56 Dose: 30 ml Amoxicillin (Amoxicillin -) 1,000 mg PO BID [facility] Stop: 12/19/18 12:59 Last Admin: 12/07/18 21:16 Dose: 1,000 mg Atorvastatin Calcium (Lipitor -) 10 mg PO HS [facility] Last Admin: 12/07/18 21:16 Dose: 10 mg Benzocaine/Menthol (Cepacol Lozenge -) 1 each MM PRN PRN PRN Reason: SORE THROAT Clarithromycin (Biaxin -) 500 mg PO BID [facility] Stop: 12/19/18 12:59 Last Admin: 12/07/18 21:15 Dose: 500 mg Diphenhydramine HCl (Benadryl Injection -) 12.5 mg IVPUSH ONCE PRN PRN Reason: FOR ITCHING Insulin Aspart (Novolog Vial Sliding Scale -) 1 vial SQ [facility]; Protocol Last Admin: 12/07/18 21:19 Dose: 6 units Insulin Detemir (Levemir Vial) 15 units SQ [facility] Last Admin: 12/07/18 21:16 Dose: 15 units Insulin Detemir (Levemir Vial) 15 units SQ DAILY@0700 [facility] Metoprolol Succinate (Toprol Xl -) 50 mg PO DAILY [facility] Last Admin: 12/07/18 09:11 Dose: 50 mg Pantoprazole Sodium (Protonix -) 20 mg PO BID [facility] Last Admin: 12/07/18 21:21 Dose: 20 mg - Objective Vital Signs: Vital Signs Temperature 98.3 F 12/07/18 19:00 Pulse Rate 86 12/07/18 19:00 Respiratory Rate 18 12/07/18 19:00 Blood Pressure 139/62 12/07/18 19:00 O2 Sat by Pulse Oximetry (%) 98 12/07/18 09:00 Vital Signs Period Temp Pulse Resp BP Sys/Gallardo Pulse Ox Last 24 Hr 98.4 F-98.8 F 79-90 16-20 105-135/50-66 Intake & Output 12/08/18 12/09/18 12/09/18 23:59 07:59 15:59 Intake Total 200 Output Total 1000 Balance 200 -1000 Weight 168 lb 2 oz Intake: Oral 200 Output: Urine 1000 Void 1000 Other: Voiding Method Toilet Bowel Movement No Weight Measurement Method Built in [facility] Constitutional: Yes: Well Nourished, No Distress, Calm Eyes: Yes: Conjunctiva Clear, EOM Intact HENT: Yes: Atraumatic, Normocephalic Neck: Yes: Supple, Trachea Midline Cardiovascular: Yes: Regular Rate and Rhythm, S1, S2 Respiratory: Yes: Regular, CTA Bilaterally Gastrointestinal: Yes: Normal Bowel Sounds, Soft. No: Distention, Tenderness ...Rectal Exam: Yes: Deferred Genitourinary: No: CVA Tenderness - Left, CVA Tenderness - Right Breast(s): No: Mass, Skin Changes Musculoskeletal: No: Muscle Pain, Muscle Weakness Extremities: No: Cold, Cool, Cyanosis Edema: No Peripheral Pulses WNL: Yes Peripheral Pulses: Left Radial: 2+, Right Radial: 2+, Left Doralis Pedis: 2+, Right Dorsalis Pedis: 2+, Left Femoral: 2+, Right Femoral: 2+ Integumentary: No: Jaundice, Rash Wound/Incision: Yes: Clean/Dry, Well Approximated, [place] Intact, Open to air Neurological: Yes: Alert, Oriented Psychiatric: Yes: Alert, Oriented Labs: CBC, BMP 12/07/18 06:50 12/05/18 07:15 INR, PTT INR 1.10 (0.83-1.09) H 12/05/18 07:15 Fibrinogen 138.0 mg/dL (238-498) L 11/30/18 08:25 Problem List - Problems (1) GI bleed Assessment/Plan: 68 yo male with MMP presented with LGIB is poorly localized suspected. Discussed all of the non-operative and operative available options with the family (, son, newphew) and patient. POD#7 s/p subtotal colectomy,doing well. 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 Diabetes mellitus complication status: with circulatory complication Diabetes mellitus complication detail: with peripheral angiopathy without gangrene Qualified Code(s): E11.51 - Type 2 diabetes mellitus with diabetic peripheral angiopathy without gangrene; Z79.4 - care home (current) use of insulin (3) HLD (hyperlipidemia) Code(s): E78.5 - HYPERLIPIDEMIA, UNSPECIFIED Qualifiers: Hyperlipidemia type: unspecified Qualified Code(s): E78.5 - Hyperlipidemia , unspecified (4) HTN (hypertension) Code(s): I10 - ESSENTIAL (PRIMARY) HYPERTENSION Qualifiers: Hypertension type: essential hypertension Qualified Code(s): I10 - Essential (primary) hypertension (5) Hypotension Code(s): I95.9 - HYPOTENSION, UNSPECIFIED (6) Syncope Code(s): R55 - SYNCOPE AND COLLAPSE
[2018-12-08] MEDS: INSULIN SLIDING SCALE (NOVOLOG) 1 VIAL SQ SCH ×4 (06:19→21:18)
[2018-12-08] MEDS: AMINO ACIDS/PROTEIN HYDROLYS 30 ML LIQUID.PKT PO SCH ×2 (09:29→17:21)
[2018-12-08] MEDS: AMOXICILLIN 500 MG CAPSULE (FP) PO SCH ×2 (09:29→21:13)
[2018-12-08] MEDS: PANTOPRAZOLE 20 MG TABLET (FP) PO SCH ×2 (09:29→21:12)
[2018-12-08] MEDS: CLARITHROMYCIN 500 MG TABLET (UD) PO SCH ×2 (09:30→21:13)
--- NOTE | 2018-12-08 11:22 | PN ---
Physical Exam: SUBJECTIVE: Patient seen and examined OBJECTIVE: Vital Signs Period Temp Pulse Resp BP Sys/Gallardo Pulse Ox Last 24 Hr 98.2 F-98.7 F 82-88 14-18 130-146/62-74 98 Intake & Output 12/05/18 12/06/18 12/07/18 12/08/18 23:59 23:59 23:59 23:59 Intake Total 595 1370 590 200 Output Total 800 Balance 595 1370 -210 200 Weight 197 lb 9 oz 175 lb 6.4 oz 169 lb 8 oz GENERAL:sitting in bed, no acute distress Chest: no rales appreciated today, pos air entry Neck: soft,supple, no JVD Abdomen:soft, improved incisional tenderness, no voluntary or involuntary guarding or rigidity, pos bowel sounds Extremities: no edema Neck: soft,supple, no stridor noted Psych: pleasant, co-operative Laboratory Results - last 24 hr 12/04/18 12/07/18 12/07/18 10:20 11:19 16:07 POC Glucometer 206 196 Blood Type O POSITIVE Antibody Screen Negative Crossmatch See Detail 12/07/18 12/08/18 20:49 06:18 POC Glucometer 306 220 Blood Type Antibody Screen Crossmatch Active Medications Generic Name Dose Route Start Last Admin Trade Name Freq PRN Reason Stop Dose Admin Acetaminophen 650 mg 12/03/18 21:27 12/04/18 05:50 Tylenol - PO 650 mg Q4H PRN Administration Pain Level 4 - 10 Amino Acids 30 ml 12/05/18 17:30 12/08/18 09:29 Prosource No Carb Liquid Pkt PO 30 ml BID@0800,1730 TAVO Administration Amoxicillin 1,000 mg 12/05/18 13:00 12/08/18 09:29 Amoxicillin - PO 12/19/18 12:59 1,000 mg BID TAVO Administration Atorvastatin Calcium 10 mg 12/06/18 22:00 12/07/18 21:16 Lipitor - PO 10 mg HS TAVO Administration Benzocaine/Menthol 1 each 12/03/18 21:27 Cepacol Lozenge - MM PRN PRN SORE THROAT Clarithromycin 500 mg 12/05/18 13:00 12/08/18 09:30 Biaxin - PO 12/19/18 12:59 500 mg BID TAVO Administration Diphenhydramine HCl 12.5 mg 12/03/18 21:27 Benadryl Injection - IVPUSH ONCE PRN FOR ITCHING Insulin Aspart 1 vial 12/03/18 22:00 12/08/18 06:19 Novolog Vial Sliding Scale - SQ 2 units ACHS TAVO Administration Protocol Insulin Detemir 15 units 12/06/18 22:00 12/07/18 21:16 Levemir Vial SQ 15 units HS TAVO Administration Insulin Detemir 15 units 12/07/18 07:00 12/08/18 06:20 Levemir Vial SQ 15 units DAILY@0700 TAVO Administration Metoprolol Succinate 50 mg 12/06/18 12:00 12/08/18 09:29 Toprol Xl - PO 50 mg DAILY TAVO Administration Pantoprazole Sodium 20 mg 12/05/18 22:00 12/08/18 09:29 Protonix - PO 20 mg BID TAVO Administration ASSESSMENT/PLAN: 68 yom with PMHx of HTN, HLD, IDDM, PVD s/p toe amputation admitted with multiple episodes of BRBPR and syncope -Acute lower GI bleed, suspect diverticular vs ulcerative disease terminal ileum /ileocecal valve (as visible on colonoscopy, r/o IBD), s/p subtotal colectomy -Acute blood loss anemia -Syncope, from above -Fever, suspect ateletasis, resolved -Left thyroid nodule/cyst with tracheal deviation -H. Pylori Gastritis -Hypophosphatemia -HTN -HLD -IDDM -PVD s/p toes amputation Plan: Doing well, h/h stable Cleared by surgery for dc GI input noted Continue H. pylori regimen day 09/22 Outpatient follow up. Endocrine input noted Outpatient thyroid US/FNA Levemir increased, A1c noted Increase toprol XL to home dose 100 mg daily Incentive spirometry, OOB, PT Medically ready for dc Await SNF bed/insurance authorization Plan discussed with patient and nursing. Visit type - Emergency Visit Emergency Visit: Yes ED Registration Date: 11/28/18 Care time: The patient presented to the Emergency Department on the above date and was hospitalized for further evaluation of their emergent condition. - New Patient This patient is new to me today: No - Critical Care Critical Care patient: No - Discharge Referral Referred to [facility] Med P.C.: No
[2018-12-08] MEDS ORDERED: PT OWN MED DRAWER 7, Y5N ONE ×2 (17:45→20:51)
[2018-12-08] MEDS ORDERED: INSULIN (NOVOLOG) ASPART 100 UNITS/ML 10ML VIAL ONE (20:51)
[2018-12-08] MEDS: ATORVASTATIN CA 10 MG TABLET (FP) PO SCH (21:12)
[2018-12-08] MEDS: INSULIN (LEVEMIR) 100 UNITS/ML UNITS SQ SCH (21:14)
--- NOTE | 2018-12-08 22:58 | PN ---
Progress Note (short form) - Note Progress Note: sp colectomy gi bleed thyroid nodule left lobe mass seen on ct scan dm 2 uncontrolled Current Active Problems Acute lower gastrointestinal hemorrhage (Acute) Anemia due to acute blood loss (Acute) Diabetes (Acute) GI bleed (Acute) HLD (hyperlipidemia) (Acute) HTN (hypertension) (Acute) Helicobacter pylori [H. pylori] as the cause of diseases classified elsewhere ( Acute) Hypotension (Acute) Syncope (Acute) Laboratory Results - last 24 hr 12/08/18 12/08/18 12/08/18 06:18 11:23 16:15 POC Glucometer 220 200 226 12/08/18 20:59 POC Glucometer 251 plan: levemir dose titrate 22 units am levemir 15units hs bgm qid coverage outpatient fna left lobe thyroid mass
[2018-12-09 05:17] VITALS: TEMP 98.8
[2018-12-09] MEDS: INSULIN SLIDING SCALE (NOVOLOG) 1 VIAL SQ SCH (06:07)
[2018-12-09] MEDS ORDERED: INSULIN (LEVEMIR) 100 UNITS/ML UNITS SQ SCH (07:00)
[2018-12-09] MEDS: AMINO ACIDS/PROTEIN HYDROLYS 30 ML LIQUID.PKT PO SCH (08:17)
[2018-12-09 09:35] VITALS: BP 105/54; PULSE 90
[2018-12-09] MEDS ORDERED: PT OWN MED DRAWER 7, Y5N ONE (09:38)
[2018-12-09] MEDS: CLARITHROMYCIN 500 MG TABLET (UD) PO SCH (09:42)
[2018-12-09] MEDS: AMOXICILLIN 500 MG CAPSULE (FP) PO SCH (09:42)
[2018-12-09] MEDS: PANTOPRAZOLE 20 MG TABLET (FP) PO SCH (09:43)
--- NOTE | 2018-12-09 12:14 | DS ---
Physical Exam: SUBJECTIVE: Patient seen and examined, no complaints, tolerating diet. OBJECTIVE: Vital Signs Period Temp Pulse Resp BP Sys/Gallardo Pulse Ox Last 24 Hr 98.4 F-98.8 F 79-90 16-20 105-135/50-66 PHYSICAL EXAM GENERAL:sitting in bed, no acute distress Chest: no rales appreciated today, pos air entry Neck: soft,supple, no JVD Abdomen:soft, improved incisional tenderness, no voluntary or involuntary guarding or rigidity, pos bowel sounds Extremities: no edema Neck: soft,supple, no stridor noted Psych: pleasant, co-operative LABS Laboratory Results - last 24 hr 12/04/18 12/08/18 12/08/18 10:20 16:15 20:59 POC Glucometer 226 251 Blood Type O POSITIVE Antibody Screen Negative Crossmatch See Detail 12/09/18 12/09/18 05:44 12:04 POC Glucometer 90 85 Blood Type Antibody Screen Crossmatch Laboratory Last Values WBC 8.8 K/mm3 (4.0-10.0) 12/07/18 06:50 RBC 3.22 M/mm3 (4.00-5.60) L 12/07/18 06:50 Hgb 9.6 GM/dL (11.7-16.9) L 12/07/18 06:50 Hct 28.4 % (35.4-49) L 12/07/18 06:50 MCV 88.0 fl (80-96) 12/07/18 06:50 MCH 29.7 pg (25.7-33.7) 12/07/18 06:50 MCHC 33.7 g/dl (32.0-35.9) 12/07/18 06:50 RDW 14.7 % (11.9-15.9) 12/07/18 06:50 Plt Count 469 K/MM3 (134-434) H 12/07/18 06:50 MPV 7.6 fl (7.5-11.1) 12/07/18 06:50 Absolute Neuts (auto) 6.3 K/mm3 (1.5-8.0) 12/07/18 06:50 Neutrophils % 71.5 % (42.8-82.8) 12/07/18 06:50 Lymphocytes % 14.6 % (8-40) D 12/07/18 06:50 Monocytes % 10.7 % (3.8-10.2) H D 12/07/18 06:50 Eosinophils % 2.6 % (0-4.5) 12/07/18 06:50 Basophils % 0.6 % (0-2.0) 12/07/18 06:50 Nucleated RBC % 0 % (0-0) 12/07/18 06:50 Retic Count 1.39 % (0.5-1.5) 11/28/18 07:22 PT with INR 13.00 SEC (9.7-13.0) 12/05/18 07:15 INR 1.10 (0.83-1.09) H 12/05/18 07:15 PTT (Actin FS) 31.4 SECONDS (25.2-36.5) 12/01/18 11:36 Fibrinogen 138.0 mg/dL (238-498) L 11/30/18 08:25 Sodium 135 mmol/L (136-145) L 12/05/18 07:15 Potassium 3.5 mmol/L (3.5-5.1) 12/05/18 07:15 Chloride 102 mmol/L (98-107) 12/05/18 07:15 Carbon Dioxide 26 mmol/L (21-32) 12/05/18 07:15 Anion Gap 7 MMOL/L (8-16) L 12/05/18 07:15 BUN 5.8 mg/dL (7-18) L 12/05/18 07:15 Creatinine 0.7 mg/dL (0.55-1.3) 12/05/18 07:15 Est GFR (CKD-EPI)AfAm 110.82 12/05/18 07:15 Est GFR (CKD-EPI)NonAf 95.61 12/05/18 07:15 POC Glucometer 85 UNITS (80-120) 12/09/18 12:04 Random Glucose 185 mg/dL (74-106) H 12/05/18 07:15 Hemoglobin A1c % 6.6 % (4.2-6.3) H 12/07/18 06:50 Calcium 7.6 mg/dL (8.5-10.1) L 12/05/18 07:15 Phosphorus 2.2 mg/dL (2.5-4.9) L 12/04/18 06:38 Magnesium 2.1 mg/dL (1.8-2.4) 12/04/18 06:38 Total Bilirubin 0.5 mg/dL (0.2-1) 12/05/18 07:15 AST 9 U/L (15-37) L 12/05/18 07:15 ALT 11 U/L (13-61) L 12/05/18 07:15 Alkaline Phosphatase 50 U/L (45-117) 12/05/18 07:15 Creatine Kinase 224 U/L (26-308) 11/28/18 07:22 Creatine Kinase Index 0.7 % (0.0-5.0) 11/28/18 07:22 CK-MB (CK-2) 1.6 ng/mL (0.5-3.6) 11/28/18 07:22 Troponin I < 0.02 ng/ml (0.00-0.05) 11/28/18 07:22 Total Protein 4.4 g/dl (6.4-8.2) L 12/05/18 07:15 Albumin 1.8 g/dl (3.4-5.0) L 12/05/18 07:15 TSH 2.05 uIU/ml (0.358-3.74) 12/05/18 07:15 Stool Occult Blood Positive (NEGATIVE) 11/28/18 07:40 Atypical p-ANCA <1:20 titer (Neg:<1:20) 11/30/18 08:25 S.cerevisiae IgG Ab <20.0 Units (0.0-24.9) 11/30/18 08:25 S. cerevisiae IgG/IgA <20.0 Units (0.0-24.9) 11/30/18 08:25 TB Test (QFT) Nil 0.17 IU/mL (.) 11/29/18 17:30 TB Test (QFT) Mitogen >10.00 IU/mL (.) 11/29/18 17:30 TB Test (QFT) Antigen 0.31 IU/mL (.) 11/29/18 17:30 TB Test (QFT) Negative (Negative) 11/29/18 17:30 TB Positive Criteria (.) 11/29/18 17:30 Blood Type O POSITIVE 06/26/19 10:20 Antibody Screen Negative 12/04/18 10:20 Crossmatch See Detail 12/04/18 10:20 Crossmatch IS Only See Detail 11/28/18 09:00 CT head 11/28: IMPRESSION: Moderate atrophy and mild periventricular chronic microvascular ischemic disease changes. No CT evidence of acute intracranial pathology is identified CTA 11/30 Impression: No definite bleeding site is identified. Mildly hyperdense fluid is again noted within the colon probably representing blood. Interval development of a small amount of pelvic free fluid is seen CT chest 12/04: Impression: An approximately 6 x 3.6 x 3.3 cm left thyroid lobe nodule/cyst is seen with resultant contralateral tracheal deviation. Correlation with sonography is suggested. Very small bilateral pleural effusions have developed in comparison to an abdomen CT study of 2018. Interval development of a small amount of perihepatic free peritoneal fluid is seen. Surgical skin cydney are now visualized in place along the midline of the partially imaged upper abdomen. Mild bibasilar discoid atelectasis is noted which appears mildly increased. Prominent atherosclerotic coronary artery calcifications are visualized. Correlate with clinical risk factors. The main pulmonary artery diameter appears borderline measuring 3 cm which could be on the basis of increased pulmonary arterial pressure. Follow-up evaluation as clinically indicated. 0.4 cm and 0.2 cm left upper lobe noncalcified pulmonary nodule is seen which are of unlikely clinical significance. Correlate with 3 month follow- up CT. A small calcified left lower lobe pulmonary granuloma is noted. HOSPITAL COURSE: Date of Admission:11/28/18 Date of Discharge: 12/09/18 Minutes to complete discharge: 42 Discharge Summary Reason For Visit: GASTROINTESTINAL HEMORRHAGE Current Active Problems Acute lower gastrointestinal hemorrhage (Acute) Anemia due to acute blood loss (Acute) Diabetes (Acute) GI bleed (Acute) HLD (hyperlipidemia) (Acute) HTN (hypertension) (Acute) Helicobacter pylori [H. pylori] as the cause of diseases classified elsewhere ( Acute) Hypotension (Acute) Syncope (Acute) Hospital Course: 68 yom with PMHx of HTN, HLD, IDDM, PVD s/p toe amputation admitted with multiple episodes of BRBPR and syncope. Patient was monitored in ICU, received multiple units of blood. Gastroenterology was consulted and he had EGD showing with normal esophageal mucosa, single 5 mm clean based ulcer in distal body/ proximal antrum, likely NSAID induced, multiple small erosions in prepyloric region of stomach. He had Colonoscopy with 4 mm sessile polyp in rectum, moderate diverticulosis in hepatic flexure and distal right colon and ulcerated abnormal appearing ileocecal valve with adjacent area oozing blood/small vessel s/p endocrip and epinephrine injection, multiple non bleeding ulcers in terminal ileum and medium internal haemorrhoids. Given no clear etiology for his ongoing brisk bleeding, surgery was consulted and he had exploratory laparotomy and subtotal colectmy on 11/30/2018. His post operative course was uneventful, diet was advanced and he is cleared for discharge from surgical standpoint with outpatient follow up His EGD biopsies were positive for H. pylori and he is started on 14 day course of amoxicillin and clarithromycin. He will be continued on his protonix 20 mg BID. His colonoscopy biopsy showed multiple ulcerations. His QFT was neg and he will need outpatient GI follow up. He was incidentally found with thyroid nodule with tracheal deviation on his CT chest. He had no stridor and respiratory status was stable. Endocrine was consulted and he will need outpatient thyroid ultrasound and FNA. His levemir was increased to 15 units twice daily. His anti-hypertensives were held, he is resumed back on his toprol XL currently and his amlodipine and lisinopril will need to be resumed outpatient based on his blood pressure readings. Also noted with incidental pulmonary nodule that will need [address] chest. He will be discharged to SNF in stable condition with outpatient GI, surgery, endocrine and pulmonary follow up. Condition: Stable - Instructions Diet, Activity, Other Instructions: SURGICAL INSTRUCTIONS: Postoperative instructions: You had a subtotal colectomy on DATE by Dr. Meet Naranjo of [facility]. Activity: Resume your usual activities gradually, but no heavy exertion or lifting more than 10-15 pounds for 4-6 weeks. Remove dressings 48 hours after surgery, if they are not already off. You may shower daily starting then, just pat the incision areas dry. No bath or swimming until skin incisions have healed. [place] should not need to be recovered with any dressings, unless you have been told otherwise. Eat lightly at first, but advance to your usual diet as tolerated. Pain: For pain, you are prescribed a Tylenol/narcotic combination for severe pain, use it instead of plain Tylenol as needed and switch back when your pain starts decreasing. Do not take more than 4000 mg of acetaminophen in a day. Take medications as prescribed or indicated on the labeling. Follow-up: Call Dr. Naranjo' office at [phone] to make your postop appointment (Sunday in approximately 2 weeks after surgery as advised). Clinic is held in the [facility] on the first floor of [facility]. Call the office if you have: * increasing pain not responsive to pain medication * fever of 101F or higher * vomiting * unusual or increasing bleeding or drainage from wounds * increasing redness or swelling at wound sites * inability to urinate Also, see your primary medical doctor within 1-2 weeks. MEDICAL INSTRUCTIONS: Medications: Do not take ASA till further instructed by your surgeon. Continue other medications as listed on your discharge papers. Continue protonix 20 mg twice daily for now. Antibiotics amoxicillin and clarithromycin for additional 10 days till 2018 (total 2 weeks course) Your BP medications will need to be adjusted based on your BP readings. Start with toprol XL 100 mg daily. Amlodipine and lisinopril can be resumed later based on BP readings by your doctor. levemir 15 units twice and sliding scale at the facility and titrate per your doctor. DO NOT TAKE NSAIDS INCLUDING MOTRIN, IBUPROFEN ETC OR ANY BLOOD THINNERS WITHOUT DISCUSSION WITH YOUR DOCTOR. FOLLOW UP: CBC in 1 week YOU WILL NEED OUTPATIENT THYROID ULTRASOUND AND FNA (FINE NEEDLE ASPIRATION). PLEASE FOLLOW UP WITH ENDOCRINE DR. ROBERTS IN 1-2 WEEKS TO DISCUSS FURTHER TEST [address] CHEST TO ASSESS LUNG NODULE. PLEASE DISCUSS WITH YOUR DOCTOR . PCP follow up in 1 week of discharge from rehab [employer] follow up with in 2 weeks In addition to symptoms mentioned above, if you notice any fevers, chills, neck swelliing, inability to breathe, or any new concerns, please call 911 or come to the ED rightaway Referrals: Suman Coe DO [Staff Physician] - Meet Naranjo MD [Staff Physician] - Maurice Jackson MD [Primary Care Provider] - Rigoberto Roberts MD [Staff Physician] - Disposition: [facility] FACILITY - Home Medications Comprehensive Discharge Medication List: Ambulatory Orders Simvastatin [Zocor] 20 mg PO DAILY tablet 10/15/13 Acetaminophen [Tylenol .Regular Strength -] 650 mg PO Q4H PRN tablet 12/06/18 Amino Acids/Protein Hydrolys [Prosource No Carb Liquid Pkt] 30 ml PO BID@0800, 1730 packet 12/06/18 Insulin Sliding Scale [Novolog Vial Sliding Scale -] 1 vial SQ ACHS units 12/06 Metoprolol Succinate [Toprol Xl] 100 mg PO DAILY 12/06/18 Pantoprazole Sodium [Protonix -] 20 mg PO BID tablet.ec 12/06/18 oxyCODONE HCL [Roxicodone -] 5 mg PO TID PRN #10 tablet MDD 15 MG 12/06/18 Amoxicillin - [Amoxicillin 500mg Capsule -] 1,000 mg PO BID 10 Days #19 capsule 12/09/18 Clarithromycin 500 mg PO BID 10 Days #19 tablet 12/09/18 Insulin (Levemir) [Levemir Vial] 15 units SQ BID #1 units 12/09/18 This patient is new to me today: No Emergency Visit: Yes ED Registration Date: 11/28/18 Care time: The patient presented to the Emergency Department on the above date and was hospitalized for further evaluation of their emergent condition. Critical Care patient: No - Discharge Referral Referred to [facility] Med P.C.: No
== END 2018-12-09 13:05 | DRG 330 ==
LOC: JER 06:19 → JERBED 08:52 → JICU 13:02 → J6S 12-03 21:04
PROVIDERS: ADMIT Internal Medicine; ATTEND Hospitalist
PROC: 0DB68ZX Excision of Stomach, Via Natural or Artificial Opening Endoscopic, Diagnostic (ICD-10-PCS; 2018-11-29)
PROC: 0DBP8ZX Excision of Rectum, Via Natural or Artificial Opening Endoscopic, Diagnostic (ICD-10-PCS; 2018-11-29)
PROC: 0DBH8ZX Excision of Cecum, Via Natural or Artificial Opening Endoscopic, Diagnostic (ICD-10-PCS; 2018-11-29)
PROC: 0D1B0ZN Bypass Ileum to Sigmoid Colon, Open Approach (ICD-10-PCS; 2018-11-30)
PROC: 30233N1 Transfusion of Nonautologous Red Blood Cells into Peripheral Vein, Percutaneous Approach (ICD-10-PCS; 2018-11-30)
PROC: 30233L1 Transfusion of Nonautologous Fresh Plasma into Peripheral Vein, Percutaneous Approach (ICD-10-PCS; 2018-11-30)
PROC: 30233K1 Transfusion of Nonautologous Frozen Plasma into Peripheral Vein, Percutaneous Approach (ICD-10-PCS; 2018-11-30)
PROC: 0DTE0ZZ Resection of Large Intestine, Open Approach (ICD-10-PCS; principal; 2018-11-30 12:38)
DX: K92.2 Gastrointestinal hemorrhage, unspecified (principal); D62 Acute posthemorrhagic anemia; J98.11 Atelectasis; K63.3 Ulcer of intestine; E78.5 Hyperlipidemia, unspecified; I10 Essential (primary) hypertension; B96.81 Helicobacter pylori [H. pylori] as the cause of diseases classified elsewhere; I95.9 Hypotension, unspecified; R55 Syncope and collapse; K57.90 Diverticulosis of intestine, part unspecified, without perforation or abscess without bleeding; K64.8 Other hemorrhoids; E83.39 Other disorders of phosphorus metabolism; E11.65 Type 2 diabetes mellitus with hyperglycemia; K29.50 Unspecified chronic gastritis without bleeding; I73.9 Peripheral vascular disease, unspecified; K25.9 Gastric ulcer, unspecified as acute or chronic, without hemorrhage or perforation; E04.1 Nontoxic single thyroid nodule; K62.1 Rectal polyp
CPT/HCPCS: 36415; 36430; 36511; 70450-TC; 71045-TC-FY; 71250-TC; 74174-TC; 80048; 80053; 82272; 82550; 82553; 82962; 83036; 83735; 84100; 84439; 84443; 84484; 85025; 85027; 85044; 85384; 85610; 85730; 86256; 86480; 86671; 86850; 86900; 86901; 86922; 88305-TC; 88307-TC; 93005; 93010; 94010; 97116-GP; 97162-GP; 99285-25; J7030; P9017; P9038; P9058

== ENCOUNTER 2020-09-01 06:53 | Emergency (ER) | payer OTHER ==
[2020-09-01 06:59] VITALS: BP 150/63; PULSE 90; TEMP 98.2; BMI 29.5
[2020-09-01] MEDS ORDERED: ACETAMINOPHEN 325 MG TABLET (FP) PO ONE (07:47)
[2020-09-01] MEDS ORDERED: ACETAMINOPHEN 325 MG TABLET (FP) ONE (07:50)
== END 2020-09-01 11:44 | disposition home or self-care (01) ==
LOC: JER 06:53
DX: S43.402A Unspecified sprain of left shoulder joint, initial encounter (principal)
CPT/HCPCS: 70450-TC; 72125-TC; 73030-TC-RT-FY; 73070-TC-LT-FY; 99284-25

== ENCOUNTER 2022-05-10 10:50 | Observation (INO) | payer OTHER ==
[2022-05-10 11:04] VITALS: BMI 23.2
[2022-05-10] MEDS ORDERED: ACETAMINOPHEN 1000 MG/100 ML BAG IVPB ONE (11:34)
[2022-05-10] MEDS ORDERED: SODIUM CHLORIDE 1,000 ML IV STA (11:34)
[2022-05-10] MEDS ORDERED: methylPREDNISolone NA SUCC 125 MG/2 ML VIAL IVPB ONE (11:34)
[2022-05-10] MEDS ORDERED: ACETAMINOPHEN INJECTION 100 ML IVPB ONE (12:01)
[2022-05-10] MEDS ORDERED: methylPREDNISolone NA SUCC 125 MG/2 ML VIAL ONE (12:02)
[2022-05-10] MEDS ORDERED: ALBUTEROL SO4 2.5/IPRATROPIUM 0.5 INH SOL 3 ML VIAL.NEB. NEB ONE ×4 (12:36→19:39)
[2022-05-10 13:16] LABS: BASO % 0.4 % (0-2.0); HEMOGLOBIN 12.7 GM/dL (11.7-16.9); LYMPH % 22.1 % (8-40); MCH 28.1 pg (25.7-33.7); MCHC 32.5 g/dl (32.0-35.9); MEAN CELL VOLUME 86.6 fl (80-96); MEAN PLT VOLUME 8.8 fl (7.5-11.1); MONO % 12.2 % (3.8-10.2); NEUT % 65.3 % (42.8-82.8); PLATELET COUNT 327 10^3/uL (134-434); RDW 16.3 % (11.9-15.9); WHITE BLOOD COUNT 8.4 K/mm3 (4.0-10.0)
[2022-05-10 13:32] LABS: CHLORIDE 98 mmol/L (98-107)
[2022-05-10 13:35] LABS: ALBUMIN 2.8 g/dl (3.4-5.0); BLOOD UREA NITROGEN 13.7 mg/dL (7-18); CALCIUM 8.5 mg/dL (8.5-10.1); CO2 21 mmol/L (21-32); GLUCOSE,RANDOM 213 mg/dL (74-106)
[2022-05-10 13:38] LABS: CREATININE 1.2 mg/dL (0.55-1.3)
[2022-05-10 13:40] LABS: TOT PROT 9.7 g/dl (6.4-8.2)
[2022-05-10 13:45] LABS: ANION GAP -3 MMOL/L (8-16); SODIUM 117 mmol/L (136-145)
[2022-05-10 17:33] LABS: ALBUMIN 2.9 g/dl (3.4-5.0); BLOOD UREA NITROGEN 15.1 mg/dL (7-18)
[2022-05-10 17:36] LABS: CREATININE 1.2 mg/dL (0.55-1.3)
[2022-05-10 17:38] LABS: BILIRUBIN,TOTAL 0.1 mg/dL (0.2-1)
[2022-05-10 17:42] LABS: TOT PROT 5.8 g/dl (6.4-8.2)
[2022-05-10] MEDS ORDERED: PIPERACILLIN/TAZOB 4.5 GM 4.5 GM in DEXTROSE 5%-WATER 100 ML IVPB ONE (19:45)
[2022-05-10 20:05] LABS: URINE APPEARANCE CLEAR; URINE BILIRUBIN NEGATIVE (NEGATIVE); URINE COLOR YELLOW; URINE GLUCOSE (UA) 3+ (NEGATIVE); URINE KETONE TRACE (NEGATIVE); URINE LEUK ESTERASE NEGATIVE (NEGATIVE); URINE NITRITE NEGATIVE (NEGATIVE); URINE PROTEIN TRACE (NEGATIVE); URINE UROBILINOGEN 0.2 mg/dL (0.2-1.0)
[2022-05-10] MEDS ORDERED: LACTATED RINGERS SOLUTION 1,000 ML IV SCH (20:45)
[2022-05-10] MEDS ORDERED: CEFTRIAXONE 1 GM in DEXTROSE 5%-WATER - 50 ML IVPB SCH (21:30)
[2022-05-10] MEDS ORDERED: PIPERACILLIN/TAZOB 4.5 GM 4.5 GM/100 ML BAG IVPB ONE (21:54)
[2022-05-10] MEDS ORDERED: OSELTAMIVIR PHOSPHATE 75 MG CAPSULE ONE (21:54)
[2022-05-11] MEDS: OSELTAMIVIR PHOSPHATE 30 MG CAPSULE PO SCH ×3 (00:39→11:57)
[2022-05-11] MEDS: INSULIN SLIDING SCALE (NOVOLOG) 1 VIAL SQ SCH ×3 (03:54→11:53)
[2022-05-11 08:03] LABS: HEMATOCRIT 36.2 % (35.4-49); HEMOGLOBIN 11.6 GM/dL (11.7-16.9); MCH 28.3 pg (25.7-33.7); MCHC 32.2 g/dl (32.0-35.9); MEAN CELL VOLUME 87.8 fl (80-96); MEAN PLT VOLUME 8.1 fl (7.5-11.1); PLATELET COUNT 293 10^3/uL (134-434); RBC 4.12 M/mm3 (4.00-5.60); RDW 15.2 % (11.9-15.9); WHITE BLOOD COUNT 7.7 K/mm3 (4.0-10.0)
[2022-05-11 08:24] LABS: BLOOD UREA NITROGEN 22.1 mg/dL (7-18); CALCIUM 8.5 mg/dL (8.5-10.1)
[2022-05-11 08:25] LABS: ALBUMIN 2.9 g/dl (3.4-5.0); MAGNESIUM 2.4 mg/dL (1.8-2.4)
[2022-05-11 08:28] LABS: CREATININE 1.3 mg/dL (0.55-1.3); PHOSPHOROUS 3.8 mg/dL (2.5-4.9)
[2022-05-11 08:29] LABS: BILIRUBIN,TOTAL 0.2 mg/dL (0.2-1); TOT PROT 6.5 g/dl (6.4-8.2)
[2022-05-11] MEDS ORDERED: ENOXAPARIN NA (PORCINE) 40 MG/0.4 ML DISP.SYRIN SQ SCH (10:00)
[2022-05-11] MEDS ORDERED: amLODIPine BESYLATE 10 MG TABLET (FP) PO SCH (10:00)
[2022-05-11] MEDS ORDERED: LOSARTAN POTASSIUM 50 MG TABLET PO SCH (10:00)
[2022-05-11] MEDS ORDERED: PATIENT'S OWN MEDICATION (NON-FORMULARY) (Omeprazole [Omeprazole] 20 MG Tablet.Dr) PO SCH (10:00)
[2022-05-11] MEDS ORDERED: amLODIPine BESYLATE 10 MG TABLET (FP) ONE (11:41)
[2022-05-11] MEDS ORDERED: LOSARTAN POTASSIUM 50 MG TABLET ONE (11:41)
[2022-05-11] MEDS ORDERED: ENOXAPARIN NA (PORCINE) 40 MG/0.4 ML DISP.SYRIN SQ ONE (11:42)
[2022-05-11 16:47] VITALS: BP 140/78; PULSE 83; RESP 20; TEMP 98.3
[2022-05-11] MEDS ORDERED: ATORVASTATIN CA 10 MG TABLET (FP) PO SCH (22:00)
== END 2022-05-11 16:57 | disposition home or self-care (01) ==
LOC: JER 10:50 → JERBED 20:48
PROVIDERS: ADMIT Internal Medicine; ATTEND Internal Medicine
PROC: 3E0F7GC Introduction of Other Therapeutic Substance into Respiratory Tract, Via Natural or Artificial Opening (ICD-10-PCS; principal; 2022-05-10)
PROC: 3E033NZ Introduction of Analgesics, Hypnotics, Sedatives into Peripheral Vein, Percutaneous Approach (ICD-10-PCS; 2022-05-10)
PROC: 3E023GC Introduction of Other Therapeutic Substance into Muscle, Percutaneous Approach (ICD-10-PCS; 2022-05-10)
PROC: 3E013VG Introduction of Insulin into Subcutaneous Tissue, Percutaneous Approach (ICD-10-PCS; 2022-05-10)
PROC: 3E0337Z Introduction of Electrolytic and Water Balance Substance into Peripheral Vein, Percutaneous Approach (ICD-10-PCS; 2022-05-10)
PROC: 3E033GC Introduction of Other Therapeutic Substance into Peripheral Vein, Percutaneous Approach (ICD-10-PCS; 2022-05-10)
DX: J09.X2 Influenza due to identified novel influenza A virus with other respiratory manifestations (principal); E11.9 Type 2 diabetes mellitus without complications; I10 Essential (primary) hypertension; E78.5 Hyperlipidemia, unspecified; Z29.8 Encounter for other specified prophylactic measures; A08.8 Other specified intestinal infections
CPT/HCPCS: 0241U-QW; 36415; 71046-TC-FY; 71250-TC; 74177-TC; 80053; 81003; 82962; 83036; 83605; 83690; 83735; 84100; 84443; 84484; 85025; 85027; 87040; 87086; 93005; 93010; 94640; 94761; 96361; 96372; 96374; 96375; 99285-25; G0378